=== PATIENT | female | born 1955 | race Caucasian/White ===

== ENCOUNTER → 2017-04-04 | Outpatient (CLI) | payer BC ==
[~2017-04-04] MED LIST: ALBU8.5H2 INH; ALPR.25T PO; ASP325T PO; ASPI-892 PO; AZIT-21 PO; BLACK COHASH; CALC-80 PO; CHOL10003 PO; CLAR-19 PO; DOXY100C2 PO; ERGO400C PO; FLUT1DIS26 IH; FLUT1DIS26 INH; FURO40TA4 PO; GLYB1.252 PO; HCT25T; HCT25T PO; HYDR480S10 PO; INSU100C7 SQ; INSU100I10 SC; INSU100I14 SC; INSU100I23 SQ; IPRA3AMP11 INH; KCL20TCR PO; LEVA1.25 NEB; LEVA1.252 IH; LEVO125T6; LEVO250T7 PO; LEVO500T69 PO; LEVO75TA57 PO; LOSA25TA5 PO; LOSA50TA6 PO; LOVA10TA PO; MTF500T; MULT1TAB63; NFMET1000 PO; OMG1KC PO; OSLT75CRX PO; PNT40TEC PO; POTA20TA15 PO; PRAV10TA PO; PRD20T PO; PRED10TA PO; SULF1TAB38; TRIA15CR TOP; TRIA1CAP PO; TRIA1CAP15 PO
--- NOTE | 2017-04-07 13:50 | Diagnostic Imaging Report ---
EXAMINATION: Bilateral screening mammogram 2D views with tomosynthesis. The current study was also evaluated with a Computer Aided Detection (CAD) system. INDICATION: Screening. PERSONAL HISTORY: No current complaints stated on the questionnaire. COMPARISON: 01/26/2016. FINDINGS: The breasts are composed of heterogeneously dense parenchyma which may decrease mammographic sensitivity. There is no mass, architectural distortion, or suspicious cluster of calcifications. Allowing for technique and positional differences, no suspicious change is seen. IMPRESSION: No significant change. ACR BI-RADS Category 2: Benign findings. Result letter will be mailed to the patient. Note: At least 10% of breast cancer is not imaged by mammography. Dictated by: Dictated on workstation # [id number]
== END ==
LOC: RAD 10:15
PROVIDERS: ATTEND Internal Medicine
DX: Z12.31 Encounter for screening mammogram for malignant neoplasm of breast (principal)
CPT/HCPCS: 77067

== ENCOUNTER 2017-05-26 14:45 | Observation (INO) | payer BC ==
[~2017-05-26] VITALS: Ht 170.2 cm; Wt 94.7 kg
[2017-05-26 15:25] VITALS: BP 171/90
--- OUTSIDE RECORDS SUMMARY | 2017-05-26 15:44 | XMS REPORT ---
Author Author THADDEUS ALEMAN Organization [employer] Address Unknown Phone Unavailable Care Team Providers Care Bartacker Name Role Phone THADDEUS ALEMAN Unavailable Allergies No Known Allergies Problems Problem Type Condition Code Onset Dates Condition Status Assessment Encounter for immunization Z23 Active Problem ZOSTAVAX DX V05.8 Active Medications No Known Medications Procedures Procedure Coding System Code Date SINGLE IMMUNIZATION ADMIN CPT-4 57364 Mar 23, 2015 FLUARIX QUAD (3 & UP)-GSK-2014 CPT-4 61605 Mar 23, 2015 Results No Known Results Immunizations Vaccine Administration Date FLUARIX QUAD (3 & UP)-GSK-2014Mar 23, 2015 Summary Purpose [employer] Submission
[2017-05-26] MEDS ORDERED: IBUPROFEN TABLET 200 MG TAB PO PRN (15:45)
[2017-05-26] MEDS ORDERED: ONDANSETRON 4 MG/2 ML (SDV) Z0FRAN IVP PRN (15:45)
[2017-05-26] MEDS ORDERED: PIPERACILLIN SODIUM/TAZOBACTAM 4.5 GM in NS (IVPB) 100 ML IV NR (15:45)
[2017-05-26] MEDS ORDERED: SENNA W/DOCUSATE (SENOKOT S) TABLET PO PRN (15:45)
[2017-05-26] MEDS ORDERED: ALPRAZolam 0.25 MG (XANAX) TAB PO PRN (15:45)
[2017-05-26] MEDS ORDERED: fentaNYL INJECTION 100 MCG/2 ML AMP IVP PRN (15:45)
[2017-05-26] MEDS ORDERED: HYDROcodone/APAP 5 MG/325 MG (LORTAB) TAB PO PRN (15:45)
[2017-05-26] MEDS ORDERED: ACETAMINOPHEN 500 MG TAB (TYLENOL) PO PRN (15:45)
--- OUTSIDE RECORDS SUMMARY | 2017-05-26 15:52 | XMS REPORT | Continuity of Care Document ---
Demographics Preferred Language Unknown Marital Status Unknown Restorationist Affiliation Unknown Race Unknown Ethnic Group Unknown Author Author [facility] Address Unknown Phone Unavailable Allergies Active Description Code Type Severity Reaction Onset Reported/Identified Relationship to Patient Clinical Status Yes codeine [id number] Drug Allergy Unknown N/A 05/22/2007 Yes sulfamethoxazole [id number] Drug Allergy Unknown N/A 07/19/2008 Yes trimethoprim [id number] Drug Allergy Unknown N/A 07/19/2008 Yes codeine [id number] Drug Allergy Unknown PT HAS TAKEN HY 07/13/2014 Medications Problems Date Dx Coded Attending Type Code Diagnosis Diagnosed By 06/29/2009 Ot 424.0 06/29/2009 Ot 786.09 12/31/2009 Ot 300.00 12/31/2009 Ot 466.0 12/31/2009 Ot 786.05 06/07/2011 Ot 244.9 06/07/2011 Ot 250.02 06/07/2011 Ot 272.1 06/07/2011 Ot 311 06/07/2011 Ot 403.90 06/07/2011 Ot 493.92 06/07/2011 Ot 585.9 06/07/2011 Ot 593.9 06/07/2011 Ot 924.3 06/07/2011 Ot E888.9 06/07/2011 Ot E932.0 06/07/2011 Ot V04.81 06/07/2011 Ot V58.67 07/24/2012 V05.8 ZOSTAVAX DX 07/13/2014 Ot 786.07 07/13/2014 Ot V76.12 07/13/2014 Ot 733.90 07/13/2014 Ot V76.12 07/13/2014 Ot V76.12 07/13/2014 CROSS DO, CATALINA Ot V76.12 07/13/2014 CROSS DO, CATALINA Ot V76.12 07/14/2014 CROSS DO, CATALINA Ot 244.9 07/14/2014 CROSS DO, CATALINA Ot 250.00 07/14/2014 CROSS DO, CATALINA Ot 272.4 07/14/2014 CROSS DO, CATALINA Ot 276.8 07/14/2014 CROSS DO, CATALINA Ot 401.9 07/14/2014 CROSS DO, CATALINA Ot 487.0 07/14/2014 CROSS DO, CATALINA Ot 493.92 07/14/2014 CROSS DO, CATALINA Ot V58.67 07/14/2014 Ot 786.07 07/14/2014 Ot V76.12 07/14/2014 Ot 733.90 07/14/2014 Ot V76.12 07/14/2014 Ot V76.12 07/14/2014 CROSS DO, CATALINA Ot V76.12 07/14/2014 CROSS DO, CATALINA Ot V76.12 07/14/2014 CROSS DO, CATALINA Ot 244.9 07/14/2014 CROSS DO, CATALINA Ot 250.00 07/14/2014 CROSS DO, CATALINA Ot 272.4 07/14/2014 CROSS DO, CATALINA Ot 276.8 07/14/2014 CROSS DO, CATALINA Ot 401.9 07/14/2014 CROSS DO, CATALINA Ot 487.0 07/14/2014 CROSS DO, CATALINA Ot 493.92 07/14/2014 CROSS DO, CATALINA Ot V58.67 07/15/2014 Ot 786.07 07/15/2014 Ot V76.12 07/15/2014 Ot 733.90 07/15/2014 Ot V76.12 07/15/2014 Ot V76.12 07/15/2014 CROSS DO, CATALINA Ot V76.12 07/15/2014 CROSS DO, CATALINA Ot V76.12 07/15/2014 CROSS DO, CATALINA Ot 244.9 07/15/2014 CROSS DO, CATALINA Ot 250.00 07/15/2014 CROSS DO, CATALINA Ot 272.4 07/15/2014 CROSS DO, CATALINA Ot 276.8 07/15/2014 CROSS DO, CATALINA Ot 401.9 07/15/2014 CROSS DO, CATALINA Ot 487.0 07/15/2014 CROSS DO, CATALINA Ot 493.92 07/15/2014 CROSS DO, CATALINA Ot V58.67 07/18/2014 CROSS DO, CATALINA Ot 244.9 07/18/2014 CROSS DO, CATALINA Ot 250.00 07/18/2014 CROSS DO, CATALINA Ot 250.02 07/18/2014 CROSS DO, CATALINA Ot 272.4 07/18/2014 CROSS DO, CATALINA Ot 276.8 07/18/2014 CROSS DO, CATALINA Ot 401.9 07/18/2014 CROSS DO, CATALINA Ot 480.9 07/18/2014 CROSS DO, CATALINA Ot 487.0 07/18/2014 CROSS DO, CATALINA Ot 493.92 07/18/2014 CROSS DO, CATALINA Ot 564.00 07/18/2014 CROSS DO, CATALINA Ot E849.7 07/18/2014 CROSS DO, CATALINA Ot E932.0 07/18/2014 CROSS DO, CATALINA Ot V58.67 01/12/2015 CROSS DO, CATALINA Ot V76.12 04/24/2015 Ot 733.90 04/24/2015 Ot V76.12 04/24/2015 Ot V76.12 04/24/2015 CROSS DO, CATALINA Ot V76.12 04/24/2015 CROSS DO, CATALINA Ot V76.12 04/24/2015 CROSS DO, CATALINA Ot V76.12 01/17/2016 CROSS DO, CATALINA Ot N64.89 OTHER SPECIFIED DISORDERS OF BREAST 01/17/2016 CROSS DO, CATALINA Ot Z12.31 ENCNTR SCREEN MAMMOGRAM FOR MALIGNANT NE 01/30/2016 CROSS DO, CATALINA Ot N64.89 OTHER SPECIFIED DISORDERS OF BREAST 02/15/2016 CROSS DO, CATALINA Ot N64.89 OTHER SPECIFIED DISORDERS OF BREAST 03/16/2016 Ot 784.0 06/16/2016 Ot 784.0 04/04/2017 CROSS DO, CATALINA Ot N64.89 OTHER SPECIFIED DISORDERS OF BREAST 04/04/2017 CROSS DO, CATALINA Ot Z12.31 ENCNTR SCREEN MAMMOGRAM FOR MALIGNANT NE 04/04/2017 CROSS DO, CATALINA Ot N64.89 OTHER SPECIFIED DISORDERS OF BREAST 04/04/2017 CROSS DO, CATALINA Ot N64.89 OTHER SPECIFIED DISORDERS OF BREAST 04/04/2017 CROSS DO, CATALINA Ot Z12.31 ENCNTR SCREEN MAMMOGRAM FOR MALIGNANT NE 04/04/2017 CROSS DO, CATALINA Ot N64.89 OTHER SPECIFIED DISORDERS OF BREAST 04/07/2017 CROSS DO, CATALINA Ot Z12.31 ENCNTR SCREEN MAMMOGRAM FOR MALIGNANT NE 04/10/2017 CROSS DO, CATALINA Ot Z12.31 ENCNTR SCREEN MAMMOGRAM FOR MALIGNANT NE 04/16/2017 CROSS DO, CATALINA Ot Z12.31 ENCNTR SCREEN MAMMOGRAM FOR MALIGNANT NE 05/16/2017 Ot 784.0 Procedures Results Encounters ACCT No. Visit Date/Time Discharge Status Pt. Type Provider Facility Loc./Unit Complaint [id number] 07/24/2012 11:07:00 07/24/2012 23: 59:59 CLS Outpatient [id number] 04/04/2017 10:15:00 2016 23:59:59 CLS Outpatient CROSS DO, CATALINA Via [facility] RAD Z12.31 SCREENING [id number] 02/03/2016 09:23:00 2015 23:59:59 CLS Outpatient VICTOR HUGO ZIMMERMAN Via [facility] QUICK BACK PAIN/FALL [id number] 01/26/2016 08:35:00 2015 23:59:59 CLS Outpatient CROSS DO, CATALINA Via [facility] RAD OTHER SPECIFIED DISORDER OF BREAST [id number] 01/19/2016 09:40:00 2015 23:59:59 CLS Outpatient KOLTON MIRELES APRN Via [facility] QUICK [id number] 01/03/2016 09:10:00 2015 23:59:59 CLS Outpatient CROSS DO, CATALINA Via [facility] RAD SCREENING [id number] 12/26/2014 14:41:00 2014 23:59:59 CLS Outpatient CROSS DO, CATALINA Via [facility] RAD [id number] 07/13/2014 11:15:00 2014 13:00:00 DIS Inpatient CROSS DO, CATALINA Via [facility] 4TH [id number] 12/21/2013 08:41:00 2013 23:59:59 CLS Outpatient CROSS DO, CATALINA Via [facility] RAD [id number] 10/09/2012 15:17:00 2012 23:59:59 CLS Outpatient CATALINA CROSS DO Via [facility] [id number] 05/26/2017 15:25:00 ACT Inpatient CATALINA CROSS DO Via [address] [id number] 07/13/2014 11:31:00 Document Registration [id number] 07/13/2014 11:31:00 Document Registration [id number] 07/13/2014 11:31:00 Document Registration [id number] 09/06/2011 15:18:00 Document Registration [id number] 06/03/2011 14:52:00 Document Registration [id number] 08/27/2010 08:34:00 Document Registration [id number] 12/31/2009 10:20:00 Document Registration [id number] 08/31/2009 08:53:00 Document Registration [id number] 06/28/2009 11:24:00 Document Registration [id number] 06/21/2009 10:38:00 Document Registration [id number] 05/22/2007 06:51:00 Document Registration
--- OUTSIDE RECORDS SUMMARY | 2017-05-26 15:52 | XMS REPORT ---
Author Author THADDEUS ALEMAN [facility] [employer] Address Unknown Phone Unavailable Care Team Providers Care Truck Despatcher Name Role Phone THADDEUS ALEMAN CP Unavailable Allergies No Known Allergies Problems Problem Type Condition Code Onset Dates Condition Status Assessment Encounter for immunization Z23 Active Problem ZOSTAVAX DX V05.8 Active Medications No Known Medications Procedures Procedure Coding System Code Date SINGLE IMMUNIZATION ADMIN CPT-4 61082 Mar 18, 2016 FLUARIX QUAD P-FREE 3 AND UP .50 2015 CPT-4 35130 Mar 18, 2016 Results No Known Results Immunizations Vaccine Administration Date FLUARIX QUAD P-FREE 3 AND UP .50 2015Mar 18, 2016 Summary Purpose [employer] Submission
[2017-05-26] MEDS ORDERED: CATHETER FLUSH 10 ML SYR IV PRN (16:15)
[2017-05-26 16:21] LABS: BASOPHILS % (AUTO) 0 % (0-10); EOSINOPHILS # (AUTO) 0.1 10^3/uL (0.0-0.3); EOSINOPHILS % (AUTO) 1 % (0-10); LYMPHOCYTES # (AUTO) 1.6 X 10^3 (1.0-4.0); LYMPHOCYTES % (AUTO) 18 % (12-44); MEAN CORPUSCULAR HEMOGLOBIN 28 PG (25-34); MEAN CORPUSCULAR HGB CONC 34 G/DL (32-36); MEAN CORPUSCULAR VOLUME 83 FL (80-99); MEAN PLATELET VOLUME 9.8 FL (7.4-10.4); MONOCYTES # (AUTO) 0.6 X 10^3 (0.0-1.0); MONOCYTES % (AUTO) 7 % (0-12); NEUTROPHILS # (AUTO) 6.7 X 10^3 (1.8-7.8); NEUTROPHILS % (AUTO) 74 % (42-75); PLATELET COUNT 204 10^3/uL (130-400); RED BLOOD COUNT 4.53 10^6/uL (4.35-5.85); RED CELL DISTRIBUTION WIDTH 12.5 % (10.0-14.5); WHITE BLOOD COUNT 9.1 10^3/uL (4.3-11.0)
[2017-05-26] MEDS ORDERED: LOSA100T28 PO (16:31)
[2017-05-26] MEDS ORDERED: LEVO75TA PO (16:31)
[2017-05-26 16:40] LABS: ALANINE AMINOTRANSFERASE 14 U/L (0-55); ALBUMIN 4.1 GM/DL (3.2-4.5); ANION GAP 7 MMOL/L (5-14); ASPARTATE AMINO TRANSFERASE 12 U/L (5-34); BILIRUBIN,TOTAL 0.7 MG/DL (0.1-1.0); BLOOD UREA NITROGEN 12 MG/DL (7-18); BUN/CREATININE RATIO 15; CALCIUM 9.3 MG/DL (8.5-10.1); CARBON DIOXIDE 28 MMOL/L (21-32); CHLORIDE 106 MMOL/L (98-107); GFR ESTIMATED > 60; GLUCOSE 110 MG/DL (70-105); POTASSIUM 3.3 MMOL/L (3.6-5.0); SODIUM 141 MMOL/L (135-145); TOTAL PROTEIN 6.9 GM/DL (6.4-8.2)
[2017-05-26] MEDS ORDERED: POTASSIUM CHLORIDE INJ 20 MEQ in NS IV 1000 ML 1,000 ML IV SCH (16:45)
[2017-05-26] MEDS: INSULIN ASPART SC SCH ×2 (17:00→21:30)
[2017-05-26] MEDS ORDERED: INSU100I14 SQ (17:01)
[2017-05-26] MEDS ORDERED: CALC-694 PO (17:01)
[2017-05-26] MEDS ORDERED: ASCO250T5 PO (17:01)
[2017-05-26] MEDS ORDERED: VITA10007 PO (17:01)
[2017-05-26] MEDS ORDERED: PRAV10TA PO (17:01)
[2017-05-26] MEDS ORDERED: ASPI-983 PO (17:01)
[2017-05-26] MEDS ORDERED: POTA10TA14 PO (17:01)
[2017-05-26] MEDS ORDERED: INSU100I29 SQ (17:01)
--- NOTE | 2017-05-26 17:01 | Diagnostic Imaging Report ---
PA and lateral views of the chest. INDICATION: Wheezing. FINDINGS: The lungs demonstrate slight prominence of the interstitial markings with no focal infiltrate. The heart size is at the upper limits of normal. No effusion or pneumothorax. The mediastinum and fatou appear unremarkable. IMPRESSION: Slight prominence of the interstitial markings with no focal infiltrate. Dictated by: Dictated on workstation # [id number]
[2017-05-26] MEDS ORDERED: ZOLPIDEM 5 MG (AMBIEN) TAB PO PRN (17:45)
[2017-05-26] MEDS: methylPREDNISolone 125 MG (Solu-MEDROL) VIAL IV SCH ×2 (18:13→23:52)
[2017-05-26] MEDS: NS W/KCL 20 MEQ/L 1,000 ML IV SCH (18:13)
[2017-05-26] MEDS: RT-BUDESONIDE NEBS 0.5 MG/2ML (PULMICORT) AMP INH SCH (18:31)
[2017-05-26] MEDS: RT-ALBUTEROL SULF 2.5 MG/3 ML PRE-MIX VIAL IH SCH ×2 (18:31→22:13)
[2017-05-26 19:24] VITALS: BP 144/69
[2017-05-26] MEDS ORDERED: NON-FORMULARY MEDICATION 1 EA EA (Insulin Detemir (Levemir Flextouch) 20 UNITS) SQ SCH (21:00)
[2017-05-26] MEDS ORDERED: inSUlin DETERMIR 1 UNIT/0.01 ML (LEVEMIR) CHARGE PER UNIT SQ SCH (21:00)
[2017-05-26] MEDS: CATHETER FLUSH 10 ML SYR IV SCH (21:36)
[2017-05-26] MEDS: PIPERACILLIN SODIUM/TAZOBACTAM 4.5 GM in NS (IVPB) 100 ML IV SCH (22:12)
[2017-05-27 00:54] VITALS: BP 139/81
[2017-05-27] MEDS: RT-ALBUTEROL SULF 2.5 MG/3 ML PRE-MIX VIAL IH SCH ×5 (01:52→21:23)
[2017-05-27] MEDS ORDERED: LEVOTHYROXINE 75 MCG (LEVOTHROID) TABLET PO SCH (04:30)
[2017-05-27 04:40] VITALS: BP 147/89
[2017-05-27] MEDS: CATHETER FLUSH 10 ML SYR IV SCH ×3 (05:38→20:57)
[2017-05-27 06:19] LABS: BASOPHILS % (AUTO) 0 % (0-10); EOSINOPHILS % (AUTO) 0 % (0-10); LYMPHOCYTES # (AUTO) 0.7 X 10^3 (1.0-4.0); LYMPHOCYTES % (AUTO) 6 % (12-44); MEAN CORPUSCULAR HEMOGLOBIN 28 PG (25-34); MEAN CORPUSCULAR HGB CONC 34 G/DL (32-36); MEAN CORPUSCULAR VOLUME 82 FL (80-99); MEAN PLATELET VOLUME 10.1 FL (7.4-10.4); MONOCYTES # (AUTO) 0.1 X 10^3 (0.0-1.0); MONOCYTES % (AUTO) 1 % (0-12); NEUTROPHILS # (AUTO) 10.3 X 10^3 (1.8-7.8); NEUTROPHILS % (AUTO) 94 % (42-75); PLATELET COUNT 234 10^3/uL (130-400); RED BLOOD COUNT 4.64 10^6/uL (4.35-5.85); RED CELL DISTRIBUTION WIDTH 12.6 % (10.0-14.5)
[2017-05-27 06:39] LABS: BAND NEUTROPHILS 0 %; BASOPHILS % (MANUAL) 0 %; EOSINOPHILS % (MANUAL) 0 %; LYMPHOCYTES % (MANUAL) 3 %; NEUTROPHILS % (MANUAL) 90 %; REACTIVE LYMPHOCYTES 4 %
[2017-05-27] MEDS ORDERED: KCL 10 MEQ TAB (MICRO K) PO SCH (07:00)
[2017-05-27] MEDS: INSULIN ASPART SC SCH ×4 (07:02→20:57)
[2017-05-27] MEDS: methylPREDNISolone 125 MG (Solu-MEDROL) VIAL IV SCH (07:02)
[2017-05-27] MEDS: PIPERACILLIN SODIUM/TAZOBACTAM 4.5 GM in NS (IVPB) 100 ML IV SCH ×3 (07:02→22:40)
[2017-05-27 07:07] LABS: ALBUMIN 4.1 GM/DL (3.2-4.5); BILIRUBIN,TOTAL 0.6 MG/DL (0.1-1.0); CALCIUM 9.7 MG/DL (8.5-10.1); CREATININE SERUM 1.09 MG/DL (0.60-1.30); POTASSIUM 3.9 MMOL/L (3.6-5.0)
[2017-05-27] MEDS: RT-BUDESONIDE NEBS 0.5 MG/2ML (PULMICORT) AMP INH SCH ×2 (07:19→21:24)
[2017-05-27 08:00] VITALS: BP 162/75
--- NOTE | 2017-05-27 08:53 | Diagnostic Imaging Report ---
INDICATION: Wheezing. PA and lateral views of the chest are obtained. Comparison is made study of 05/26/2017. FINDINGS: Heart size and pulmonary vascularity are within normal limits. There is a focal region of increased density projected over the medial upper right hemithorax. This is likely due to superimposition of the anterior aspect of first rib and right posterior ribs. This does appear more conspicuous than on the previous study. Otherwise, lungs are clear and well-expanded. There is no evidence of pneumothorax or significant pleural fluid. IMPRESSION: Questionable increasing focal density in the medial right upper chest. This is likely due to superimposition, although apical lordotic view would be of use for excluding possible developing lesion. Dictated by: Dictated on workstation # [id number]
[2017-05-27] MEDS: ASCORBIC ACID (VIT C) 500 MG TABLET PO SCH (08:55)
[2017-05-27] MEDS: NS W/KCL 20 MEQ/L 1,000 ML IV SCH (08:55)
[2017-05-27] MEDS: CALCIUM CARB + VIT D 600 MG (CALCARB + D) TAB PO SCH (08:55)
[2017-05-27] MEDS ORDERED: NON-FORMULARY MEDICATION 1 EA EA (Potassium Chloride (Klor-Con M10) 10 MEQ) PO SCH (09:00)
[2017-05-27] MEDS ORDERED: NON-FORMULARY MEDICATION 1 EA EA (Ascorbic Acid (Vitamin C) 500 MG) PO SCH (09:00)
[2017-05-27] MEDS ORDERED: LOSARTAN 100 MG (COZAAR) TABLET PO SCH (09:00)
--- NOTE | 2017-05-27 09:23 | History & Physical-Hospitalist ---
HPI History of Present Illness: HPI/Chief Complaint CC: Fever with cough and red, swollen eyes HPI: This is a 61yoWF clinic patient of mine for the past 12 years w/h/o DM, HTN , HLP and asthma who presented to my office yesterday afternoon as an urgent appt due to fever for 2 days and increasing cough and overall decline. Pt has a h/o influenza with pneumonia 3 yrs ago and she can become extremely ill and I assessed her yesterday to be rapidly declining and in need of further assessment and hospitalization to fully evaluate the source of her fever. I admitted her yesterday urgently and checked labs and CXR and influenza and it appears that she has bacterial bronchitis and AE asthma since flu was negative and CXR did not reveal infiltrate. Today she feels much better and her eyes are much improved. 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[employer]) Alcohol Use: Denies Use Recreational Drug Use: No Smoking Status: Never a Smoker Physical Abuse Screen: No Sexual Abuse: No Recent Foreign Travel: No Contact w/other who traveled: No Recent Hopitalizations: Yes Recent Infectious Disease Expo: No Immunizations Up To Date Pediatric: No Date of Pneumonia Vaccine: May 16, 2012 Date of Influenza Vaccine: Mar 17, 2017 Seasonal Allergies Seasonal Allergies: No Surgeries Yes (R ROTATOR CUFF 12/2004) Respiratory Yes Asthma Cardiovascular Yes High Cholesterol, Hypertension Neurological No Reproductive System Hx Reproductive Disorders: Yes Female Reproductive Disorders: Denies Genitourinary No Gastrointestinal No Musculoskeletal No Endocrine History of Endocrine Disorders: Yes Endocrine Disorders: Diabetes, Insulin dep HEENT History of HEENT Disorders: No Loss of Vision: Denies Hearing Impairment: Denies Cancer No Psychosocial History of Psychiatric Problem: No Integumentary History of Skin or Integumenta: No Blood Transfusions History of Blood Disorders: No Family Medical History Family Hx: Diabetes mellitus 19 MOTHER, , Age:60 FH: breast cancer 19 MOTHER, , Age:60 (mets to liver) Review of Systems Constitutional: see HPI, chills, diaphoresis, dizziness, fever, malaise, weakness EENTM: no symptoms reported Respiratory: cough, wheezing Cardiovascular: no symptoms reported Gastrointestinal: no symptoms reported Genitourinary: decreased output Musculoskeletal: back pain Skin: no symptoms reported Psychiatric/Neurological: No Symptoms Reported All Other Systems Reviewed Negative Unless Noted: Yes Physical Exam Physical Exam Vital Signs Vital Sign - Last 12Hours 05/26/17 05/26/17 15:25 16:51 Temp 97.5 Pulse 96 Resp 20 B/P (MAP) 171/90 (117) Pulse Ox 96 O2 Delivery Room Air FiO2 21 Capillary Refill : General Appearance: No Apparent Distress, WD/WN, Chronically ill, Other ( fatigued but much improved form yesterday) Eyes: Bilateral Eye Normal Inspection, Bilateral Eye PERRL HEENT: PERRL/EOMI, Normal ENT Inspection, Pharynx Normal Neck: Full Range of Motion, Normal Inspection, Non Tender, Supple, Carotid Bruit Respiratory: Chest Non Tender, No Accessory Muscle Use, No Respiratory Distress , Crackles, Decreased Breath Sounds, Wheezing Cardiovascular: Regular Rate, Rhythm, No Edema, No Gallop, No JVD, No Murmur, Normal Peripheral Pulses Gastrointestinal: Normal Bowel Sounds, No Organomegaly, No Pulsatile Mass, Non Tender, Soft Back: Normal Inspection, No CVA Tenderness, No Vertebral Tenderness Extremity: Normal Capillary Refill, Normal Inspection, Normal Range of Motion, Non Tender, No Calf Tenderness, No Pedal Edema Neurologic/Psychiatric: Alert, Oriented x3, No Motor/Sensory Deficits, Normal Mood/Affect Skin: Normal Color, Warm/Dry Lymphatic: No Adenopathy Results Results/Procedures Lab Laboratory Tests 05/26/17 16:00 05/27/17 05:38 Assessment/Plan Admission Diagnosis Assessment: Fever Bacterial bronchitis AE asthma DM OOC due to steroids usually tightly controlled with HGA1C 5.8 HTN 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 Assessment and Plan Plan: Decrease IV steroids and continue IV abx HLIVF Monitor labs Ambulate High sugar management Diagnosis/Problems Diagnosis/Problems (1) Acute bronchitis, bacterial Status: Acute Assessment & Plan: Zosyn abx empirically (2) Dehydration Status: Acute Assessment & Plan: s/p IVF will HLIVF today (3) Fever Status: Acute Qualifiers: Qualified Codes: R50.9 - Fever, unspecified (4) Asthma attack Status: Acute Qualifiers: Qualified Codes: J45.41 - Moderate persistent asthma with (acute) exacerbation Clinical Quality Measures DVT/VTE Risk/Contraindication: Risk Factor Score Per Nursin RFS Level Per Nursing on Admit: 3=High JUDI DELUCA DO May 27, 2017 09:23
[2017-05-27] MEDS ORDERED: PATIENT MAY USE OWN MEDS, ALL MC SCH (09:45)
[2017-05-27] MEDS: LOSARTAN 100 MG (COZAAR) TABLET PO SCH (10:08)
[2017-05-27] MEDS: ASPIRIN E.C. 81 MG (ECOTRIN) TAB PO SCH (10:10)
[2017-05-27 12:00] VITALS: BP 160/79
[2017-05-27 16:00] VITALS: BP 167/76
[2017-05-27 19:34] VITALS: BP 156/79
[2017-05-27] MEDS: methylPREDNISolone 40 MG/ML (Solu-MEDROL) VIAL IV SCH (20:56)
[2017-05-27] MEDS ORDERED: inSUlin DETERMIR 1 UNIT/0.01 ML (LEVEMIR) CHARGE PER UNIT SQ SCH (21:00)
[2017-05-28] VITALS: BP 154/79
[2017-05-28] MEDS: RT-ALBUTEROL SULF 2.5 MG/3 ML PRE-MIX VIAL IH SCH ×3 (02:38→10:36)
[2017-05-28 04:00] VITALS: BP 160/74
[2017-05-28] MEDS ORDERED: LEVOTHYROXINE 75 MCG (LEVOTHROID) TABLET PO SCH (04:30)
[2017-05-28 05:56] VITALS: BP 160/74
[2017-05-28 05:58] LABS: BASOPHILS % (AUTO) 0 % (0-10); EOSINOPHILS % (AUTO) 0 % (0-10); LYMPHOCYTES # (AUTO) 0.9 X 10^3 (1.0-4.0); LYMPHOCYTES % (AUTO) 7 % (12-44); MEAN CORPUSCULAR HEMOGLOBIN 28 PG (25-34); MEAN CORPUSCULAR HGB CONC 34 G/DL (32-36); MEAN CORPUSCULAR VOLUME 84 FL (80-99); MEAN PLATELET VOLUME 10.3 FL (7.4-10.4); MONOCYTES # (AUTO) 0.3 X 10^3 (0.0-1.0); MONOCYTES % (AUTO) 3 % (0-12); NEUTROPHILS # (AUTO) 11.4 X 10^3 (1.8-7.8); NEUTROPHILS % (AUTO) 90 % (42-75); PLATELET COUNT 240 10^3/uL (130-400); RED BLOOD COUNT 4.16 10^6/uL (4.35-5.85); RED CELL DISTRIBUTION WIDTH 12.7 % (10.0-14.5); WHITE BLOOD COUNT 12.6 10^3/uL (4.3-11.0)
[2017-05-28] MEDS: PIPERACILLIN SODIUM/TAZOBACTAM 4.5 GM in NS (IVPB) 100 ML IV SCH (06:16)
[2017-05-28] MEDS: LOSARTAN 100 MG (COZAAR) TABLET PO SCH (06:16)
[2017-05-28] MEDS: CATHETER FLUSH 10 ML SYR IV SCH (06:16)
[2017-05-28 06:20] LABS: ALBUMIN 3.7 GM/DL (3.2-4.5); BILIRUBIN,TOTAL 0.3 MG/DL (0.1-1.0); CALCIUM 9.8 MG/DL (8.5-10.1); CREATININE SERUM 1.04 MG/DL (0.60-1.30); TOTAL PROTEIN 6.3 GM/DL (6.4-8.2)
[2017-05-28] MEDS: INSULIN ASPART SC SCH (06:26)
[2017-05-28] MEDS ORDERED: KCL 10 MEQ TAB (MICRO K) PO SCH (07:00)
[2017-05-28] MEDS: RT-BUDESONIDE NEBS 0.5 MG/2ML (PULMICORT) AMP INH SCH (07:23)
[2017-05-28 08:00] VITALS: BP 141/67
[2017-05-28] MEDS: methylPREDNISolone 40 MG/ML (Solu-MEDROL) VIAL IV SCH (09:45)
[2017-05-28] MEDS: CALCIUM CARB + VIT D 600 MG (CALCARB + D) TAB PO SCH (10:24)
[2017-05-28] MEDS: ASCORBIC ACID (VIT C) 500 MG TABLET PO SCH (10:24)
[2017-05-28] MEDS: ASPIRIN E.C. 81 MG (ECOTRIN) TAB PO SCH (10:24)
[2017-05-28] MEDS ORDERED: FLUT1DIS26 IH (11:06)
[2017-05-28] MEDS ORDERED: PRED10TA22 PO (11:06)
[2017-05-28] MEDS ORDERED: ALBU2.5V4 IH (11:06)
[2017-05-28] MEDS ORDERED: CEFD300C3 PO (11:06)
--- NOTE | 2017-05-28 11:24 | Discharge Summary-Hospitalist ---
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 Plan: Decrease IV steroids and continue IV abx HLIVF Monitor labs Ambulate High sugar management (1) Acute bronchitis, bacterial Status: Acute Assessment & Plan: Zosyn abx empirically (2) Dehydration Status: Acute Assessment & Plan: s/p IVF will HLIVF today (3) Fever Status: Acute (4) Asthma attack Status: Acute Discharge Summary Discharge Physical Examination Allergies: Coded Allergies: codeine (Verified Allergy, Unknown, PT HAS TAKEN HYDROCODONE W/O ISSUE, ) sulfamethoxazole (Verified Allergy, Unknown, 07/19/08) trimethoprim (Verified Allergy, Unknown, 07/19/08) Vitals & I&Os Vital Signs Date Time Temp Pulse Resp B/P (MAP) Pulse Ox O2 Delivery O2 Flow Rate FiO2 05/28/17 10:36 95 Room Air 05/28/17 08:00 98.2 110 17 141/67 (91) 05/26/17 16:51 21 Hospital Course Notes from 05/28/17 Chart Review: WBC 12.6 from steroids Blood sugars 400 due to steroids All cx negative Patient Interview: Pt states she was moved rooms yesterday Pt was informed that her sugars are high due to steroids and that they will run high until these are completed Physical exam stable. Lung sound great Pt denies having BMs Pt confirms [facility] Pt states her Albuterol has , but she states she has used them. Pt denies having any Advair. Pt states she needs a doctors' note for work. Pt states she would like to go back half a day on Friday, but Ill have her go back Friday after seeing her Friday Pt states that no one is home, but she can be picked up later. Pt joked that she tried to commit suicide last night and states she was receiving breathing treatment at after 0400 when the RN noticed she was covered with blood. Pt states she had apparently pulled out her IV. 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 Judi Deluca. Labs (last 24 hrs) Laboratory Tests 05/27/17 15:44: Glucometer 434*H 05/27/17 20:48: Glucometer 487*H 05/28/17 05:23: White Blood Count 12.6H, Red Blood Count 4.16L, Hemoglobin 11.8, Hematocrit 35, Mean Corpuscular Volume 84, Mean Corpuscular Hemoglobin 28, Mean Corpuscular Hemoglobin Concent 34, Red Cell Distribution Width 12.7, Platelet Count 240, Mean Platelet Volume 10.3, Neutrophils (%) (Auto) 90H, Lymphocytes (%) (Auto) 7L , Monocytes (%) (Auto) 3, Eosinophils (%) (Auto) 0, Basophils (%) (Auto) 0, Neutrophils # (Auto) 11.4H, Lymphocytes # (Auto) 0.9L, Monocytes # (Auto) 0.3, Eosinophils # (Auto) 0.0, Basophils # (Auto) 0.0, Sodium Level 140, Potassium Level 4.0, Chloride Level 107, Carbon Dioxide Level 23, Anion Gap 10, Blood Urea Nitrogen 27H, Creatinine 1.04, Estimat Glomerular Filtration Rate 54, BUN/ Creatinine Ratio 26, Glucose Level 442*H, Calcium Level 9.8, Total Bilirubin 0.3 , Aspartate Amino Transf (AST/SGOT) 11, Alanine Aminotransferase (ALT/SGPT) 16, Alkaline Phosphatase 95, Total Protein 6.3L, Albumin 3.7 Microbiology 05/26/17 Blood Culture - Preliminary, Resulted No growth 05/26/17 Influenza Types A,B Antigen (BRITTANY) - Final, Complete Pending Labs Laboratory Tests 05/28/17 05:23: White Blood Count 12.6, Red Blood Count 4.16, Hemoglobin 11.8, Hematocrit 35, Mean Corpuscular Volume 84, Mean Corpuscular Hemoglobin 28, Mean Corpuscular Hemoglobin Concent 34, Red Cell Distribution Width 12.7, Platelet Count 240, Mean Platelet Volume 10.3, Neutrophils (%) (Auto) 90, Lymphocytes (%) (Auto) 7, Monocytes (%) (Auto) 3, Eosinophils (%) (Auto) 0, Basophils (%) (Auto) 0, Neutrophils # (Auto) 11.4, Lymphocytes # (Auto) 0.9, Monocytes # (Auto) 0.3, Eosinophils # (Auto) 0.0, Basophils # (Auto) 0.0, Sodium Level 140, Potassium Level 4.0, Chloride Level 107, Carbon Dioxide Level 23, Anion Gap 10, Blood Urea Nitrogen 27, Creatinine 1.04, Estimat Glomerular Filtration Rate 54, BUN/ Creatinine Ratio 26, Glucose Level 442, Calcium Level 9.8, Total Bilirubin 0.3, Aspartate Amino Transf (AST/SGOT) 11, Alanine Aminotransferase (ALT/SGPT) 16, Alkaline Phosphatase 95, Total Protein 6.3, Albumin 3.7 Discharge Home Medications: Active Scripts Active Cefdinir 300 Mg Capsule 300 Mg PO BID Prednisone 10 Mg Tab.ds.pk 20 Mg PO DAILY Advair 250-50 Diskus (Fluticasone/Salmeterol) 1 Each Blst.w.dev 1 Each IH BID Albuterol Sulfate 2.5 Mg/3 Ml Vial.neb 2.5 Mg IH RTQ4HR Reported Levemir Flextouch (Insulin Detemir) 100 Unit/1 Ml Insuln.pen 20 Units SQ HS Klor-Con M10 (Potassium Chloride) 10 Meq Tab.er.prt 10 Meq PO DAILY LAST FILLED 07/14/16 #180 Pravastatin Sodium 10 Mg Tablet 5 Mg PO MOWEFR TAKES 1/2 OF A (10 MG) TABLET Vitamin C (Ascorbic Acid) 250 Mg Tab.chew 500 Mg PO DAILY TAKES 2 (250 MG) GUMMIES Vitamin E 1,000 Unit Capsule 1,000 Unit PO DAILY Novolog Flexpen (Insulin Aspart) 300 Units/3 Ml Solution 10 Units SQ AC Aspirin EC (Aspirin) 81 Mg Tablet.dr 81 Mg PO DAILY Calcium 600 + Vit D Caplet (Calcium Carbonate/Vitamin D3) 1 Each Tablet 600 Mg PO DAILY Losartan Potassium 100 Mg Tablet 100 Mg PO DAILY Synthroid (Levothyroxine Sodium) 75 Mcg Tablet 75 Mcg PO 0430 Instructions to patient/family Please see electronic discharge instructions given to patient. Clinical Quality Measures DVT/VTE Risk/Contraindication: Risk Factor Score Per Nursin RFS Level Per Nursing on Admit: 3=High Problem Qualifiers (1) Fever: Fever type: unspecified Qualified Codes: R50.9 - Fever, unspecified (2) Asthma attack: Asthma severity: moderate Asthma persistence: persistent Qualified Codes: J45.41 - Moderate persistent asthma with (acute) exacerbation JUDI DELUCA DO May 28, 2017 11:24
[2017-05-28 13:15] VITALS: BP 141/67
== END 2017-05-28 11:06 | disposition home or self-care (01) ==
LOC: 4TH 15:25
PROVIDERS: ADMIT Internal Medicine; ATTEND Internal Medicine
DX: J20.8 Acute bronchitis due to other specified organisms (principal); J45.41 Moderate persistent asthma with (acute) exacerbation; E86.0 Dehydration; E11.65 Type 2 diabetes mellitus with hyperglycemia; T38.0X5A Adverse effect of glucocorticoids and synthetic analogues, initial encounter; I10 Essential (primary) hypertension; E78.5 Hyperlipidemia, unspecified; Z79.4 Long term (current) use of insulin; Z79.899 Other long term (current) drug therapy; Z88.2 Allergy status to sulfonamides
CPT/HCPCS: 36415; 71020; 80053; 82962; 83605; 85007; 85025; 85027; 87040; 87804; 94640; 94760; 99211; G0378

== ENCOUNTER 2018-01-13 16:58 | Observation (INO) | payer BC ==
[~2018-01-13] VITALS: Ht 170.2 cm; Wt 103.0 kg
[~2018-01-13 16:58] MED LIST changes: +ALBU2.5V4 IH; +ASCO250T5 PO; +ASPI-983 PO; +CALC-694 PO; +CEFD300C3 PO; +INSU100I14 SQ; +INSU100I29 SQ; +LEVO75TA PO; +LOSA100T28 PO; +POTA10TA14 PO; +PRED10TA22 PO; +VITA10007 PO
[2018-01-13] MEDS ORDERED: PIPERACILLIN SODIUM/TAZOBACTAM 4.5 GM in NS (IVPB) 100 ML IV ONE (17:03)
[2018-01-13] MEDS ORDERED: fentaNYL INJECTION 100 MCG/2 ML AMP IVP PRN (17:15)
[2018-01-13] MEDS ORDERED: PATIENT MAY USE OWN MEDS, ALL PO SCH (17:15)
[2018-01-13] MEDS ORDERED: ACETAMINOPHEN 500 MG TAB (TYLENOL) PO PRN (17:15)
[2018-01-13] MEDS ORDERED: ONDANSETRON 4 MG/2 ML (SDV) Z0FRAN IVP PRN (17:15)
[2018-01-13 17:50] VITALS: BP 172/89
[2018-01-13] MEDS ORDERED: methylPREDNISolone 40 MG/ML (Solu-MEDROL) VIAL IV SCH (18:00)
[2018-01-13] MEDS ORDERED: PIPERACILLIN/TAZO 4.5 GM/D5W 100 ML IV NR ×2 (18:00)
--- NOTE | 2018-01-13 18:07 | Diagnostic Imaging Report ---
INDICATION: Shortness of breath with wheezing for the last week. EXAMINATION: Two-view chest dated 01/13/2018. COMPARISON: 05/27/2017. FINDINGS: There are mildly coarsened interstitial changes which appear chronic. The heart and pulmonary vasculature are stable from previous. There is no pneumothorax. No effusions or infiltrates appreciated. IMPRESSION: 1. Chronic changes with no acute abnormality appreciated. Dictated by: Dictated on workstation # [id number]
[2018-01-13 18:16] LABS: BASOPHILS # (AUTO) 0.1 10^3/uL (0.0-0.1); BASOPHILS % (AUTO) 1 % (0-10); EOSINOPHILS # (AUTO) 0.4 10^3/uL (0.0-0.3); EOSINOPHILS % (AUTO) 4 % (0-10); HEMATOCRIT 41 % (35-52); HEMOGLOBIN 13.9 G/DL (11.5-16.0); LYMPHOCYTES # (AUTO) 2.4 X 10^3 (1.0-4.0); LYMPHOCYTES % (AUTO) 24 % (12-44); MEAN CORPUSCULAR HEMOGLOBIN 28 PG (25-34); MEAN CORPUSCULAR HGB CONC 34 G/DL (32-36); MEAN CORPUSCULAR VOLUME 83 FL (80-99); MEAN PLATELET VOLUME 9.8 FL (7.4-10.4); MONOCYTES # (AUTO) 0.5 X 10^3 (0.0-1.0); MONOCYTES % (AUTO) 5 % (0-12); NEUTROPHILS # (AUTO) 6.7 X 10^3 (1.8-7.8); NEUTROPHILS % (AUTO) 67 % (42-75); PLATELET COUNT 285 10^3/uL (130-400); RED BLOOD COUNT 4.93 10^6/uL (4.35-5.85); RED CELL DISTRIBUTION WIDTH 13.1 % (10.0-14.5)
[2018-01-13] MEDS ORDERED: NEBI5TAB8 PO (18:22)
[2018-01-13] MEDS: ENOXAPARIN 40 MG/0.4 ML (LOVENOX) SYR SC SCH (18:23)
[2018-01-13] MEDS: methylPREDNISolone 125 MG (Solu-MEDROL) VIAL IV SCH ×2 (18:23→23:49)
[2018-01-13 18:36] LABS: ALBUMIN 4.3 GM/DL (3.2-4.5); BILIRUBIN,TOTAL 0.3 MG/DL (0.1-1.0); CALCIUM 10.4 MG/DL (8.5-10.1); CREATININE SERUM 0.99 MG/DL (0.60-1.30)
[2018-01-13] MEDS ORDERED: RT-ALBUTEROL/IPRATROPIUM 3 ML (DUONEB) VIAL ONE (18:39)
[2018-01-13] MEDS ORDERED: hydrALAZINE (APRESOLINE) 25 MG TAB PO PRN (19:00)
[2018-01-13] MEDS ORDERED: NS IV 1000 ML 1,000 ML IV SCH ×2 (19:00→22:00)
[2018-01-13] MEDS: RT-BUDESONIDE NEBS 0.5 MG/2ML (PULMICORT) AMP INH SCH (19:38)
[2018-01-13 19:53] VITALS: BP 172/89
[2018-01-13 20:10] VITALS: BP 189/85
[2018-01-13] MEDS ORDERED: RT-LEVALBUTEROL (XOPENEX) 1.25 MG/3 ML NEB NON-FORMULARY INH PRN (20:15)
[2018-01-13] MEDS: HYDROCODONE/CHLOR 10MG/5 ML (TUSSIONEX SUSP) 5ML UDC PO SCH (20:42)
[2018-01-13] MEDS: BENZONATATE 100 MG (TESSALON) CAPSULE PO SCH (20:42)
[2018-01-13] MEDS: inSUlin ASPART (NovoLOG) 1 UNIT/0.01 ML (CHARGE PER UNIT) SC SCH (20:43)
[2018-01-13] MEDS ORDERED: inSUlin DETERMIR 1 UNIT/0.01 ML (LEVEMIR) CHARGE PER UNIT SQ SCH (21:00)
[2018-01-13] MEDS: RT-LEVALBUTEROL (XOPENEX) 1.25 MG/3 ML NEB NON-FORMULARY INH SCH (21:38)
[2018-01-13] MEDS: ALPRAZolam 0.25 MG (XANAX) TAB PO PRN (21:50)
[2018-01-13] MEDS ORDERED: RT-ALBUTEROL SULF 2.5 MG/3 ML PRE-MIX VIAL IH SCH (22:00)
[2018-01-13] MEDS: PIPERACILLIN/TAZO 4.5 GM/D5W 100 ML IV SCH ×2 (23:49)
[2018-01-14 00:20] VITALS: BP 163/77
[2018-01-14] MEDS: RT-LEVALBUTEROL (XOPENEX) 1.25 MG/3 ML NEB NON-FORMULARY INH SCH ×6 (02:06→22:31)
[2018-01-14 04:09] VITALS: BP 129/75
[2018-01-14] MEDS: methylPREDNISolone 125 MG (Solu-MEDROL) VIAL IV SCH ×4 (05:39→23:47)
[2018-01-14] MEDS: KCL 10 MEQ TAB (MICRO K) PO SCH (05:41)
[2018-01-14] MEDS: LEVOTHYROXINE 75 MCG (LEVOTHROID) TABLET PO SCH (05:41)
[2018-01-14] MEDS: inSUlin ASPART (NovoLOG) 1 UNIT/0.01 ML (CHARGE PER UNIT) SC SCH ×7 (05:44→20:34)
[2018-01-14 05:46] LABS: BASOPHILS % (AUTO) 0 % (0-10); EOSINOPHILS % (AUTO) 0 % (0-10); HEMATOCRIT 38 % (35-52); HEMOGLOBIN 13.5 G/DL (11.5-16.0); LYMPHOCYTES # (AUTO) 1.1 X 10^3 (1.0-4.0); LYMPHOCYTES % (AUTO) 9 % (12-44); MEAN CORPUSCULAR HEMOGLOBIN 29 PG (25-34); MEAN CORPUSCULAR HGB CONC 35 G/DL (32-36); MEAN CORPUSCULAR VOLUME 82 FL (80-99); MEAN PLATELET VOLUME 10.1 FL (7.4-10.4); MONOCYTES # (AUTO) 0.1 X 10^3 (0.0-1.0); MONOCYTES % (AUTO) 1 % (0-12); NEUTROPHILS # (AUTO) 10.5 X 10^3 (1.8-7.8); NEUTROPHILS % (AUTO) 89 % (42-75); PLATELET COUNT 252 10^3/uL (130-400); RED BLOOD COUNT 4.68 10^6/uL (4.35-5.85); RED CELL DISTRIBUTION WIDTH 12.6 % (10.0-14.5); WHITE BLOOD COUNT 11.8 10^3/uL (4.3-11.0)
[2018-01-14 06:07] LABS: ALBUMIN 4.2 GM/DL (3.2-4.5); BILIRUBIN,TOTAL 0.5 MG/DL (0.1-1.0); CALCIUM 9.2 MG/DL (8.5-10.1); CREATININE SERUM 0.99 MG/DL (0.60-1.30); POTASSIUM 4.3 MMOL/L (3.6-5.0); TOTAL PROTEIN 6.5 GM/DL (6.4-8.2)
[2018-01-14] MEDS ORDERED: inSUlin ASPART (NovoLOG) 1 UNIT/0.01 ML (CHARGE PER UNIT) SC SCH (07:00)
[2018-01-14] MEDS: RT-BUDESONIDE NEBS 0.5 MG/2ML (PULMICORT) AMP INH SCH ×2 (07:19→18:38)
[2018-01-14 08:00] VITALS: BP 172/79
[2018-01-14] MEDS: BENZONATATE 100 MG (TESSALON) CAPSULE PO SCH ×3 (08:21→20:32)
[2018-01-14] MEDS: PIPERACILLIN/TAZO 4.5 GM/D5W 100 ML IV SCH ×6 (08:21→23:57)
[2018-01-14] MEDS: ASPIRIN E.C. 81 MG (ECOTRIN) TAB PO SCH (08:21)
[2018-01-14] MEDS: HYDROCODONE/CHLOR 10MG/5 ML (TUSSIONEX SUSP) 5ML UDC PO SCH ×2 (08:21→20:33)
[2018-01-14] MEDS: LOSARTAN 100 MG (COZAAR) TABLET PO SCH (08:22)
[2018-01-14] MEDS: NEBIVOLOL 5 MG TAB (BYSTOLIC) PO SCH (08:22)
[2018-01-14] MEDS ORDERED: NON-FORMULARY MEDICATION 1 EA EA (Potassium Chloride (Klor-Con M10) 10 MEQ) PO SCH (09:00)
[2018-01-14] MEDS ORDERED: FLUT1DIS26 IH (09:02)
[2018-01-14] MEDS ORDERED: LEVA1.2516 NEB (09:02)
[2018-01-14] MEDS ORDERED: CEFD300C3 PO (09:04)
--- NOTE | 2018-01-14 09:12 | History & Physical-Hospitalist ---
History of Present Illness HPI/Chief Complaint CC: Wheezing HPI: This is a 62-year-old white female clinic patient of [facility] for the past 10 years with a past medical history of wheezing, diabetes mellitus insulin- dependent under excellent control, hypertension, hypothyroidism and hyperlipidemia who presented to my clinic for the third time in the last 5 days for wheezing. She had been seen in my clinic the prior noted that her lung exam was clear so I treated bronchitis with cefdinir and prednisone and she restarted Advair and Xopenex and was seen in my Friday afternoon clinic for checkup. She is found to have improved status less cough and was told to call me on Friday and report status. She was seen as an urgent appointment found to have wheezing on exam and failure of outpatient therapy and persistent severe cough. She was subsequently admitted for observation for IV steroids and close monitoring. She did have an elevated lactic acid which is not of sepsis and bacterial source since chest x-ray was negative and no evidence of any infectious source but likely due to dehydration and hypovolemia and severe cough. Considering she has 1-2 attacks per year she is willing to pursue other sources of respiratory insufficiency including obstructive sleep apnea since she has not had sleep study in the past. We will arrange that as an outpatient with Dr. Fraire. Source: patient Exam Limitations: no limitations Date Seen 01/14/18 Time Seen by Provider: 10:00 Attending Physician Judi Deluca DO PCP Judi Deluca DO Referring Physician Date of Admission Jan 13, 2018 at 17:46 Home Medications & Allergies Home Medications Reviewed patient Home Medication Reconciliation performed by pharmacy medication reconciliations systems technician and/or nursing. Patients Allergies have been reviewed. Allergies Allergies Coded Allergies codeine (Verified Allergy, Unknown, PT HAS TAKEN HYDROCODONE W/O ISSUE, ) sulfamethoxazole (Verified Allergy, Unknown, 07/19/08) trimethoprim (Verified Allergy, Unknown, 07/19/08) Past Vxflwpv-Ytxflb-Otptmt Hx Past Med/Social Hx: Reviewed Nursing Past Med/Soc Hx, Reviewed and Corrections made Patient Social History Marrital Status: Employed/Student: employed (teacher) Alcohol Use: Denies Use Recreational Drug Use: No Smoking Status: Never a Smoker Physical Abuse Screen: No Sexual Abuse: No Recent Foreign Travel: No Contact w/other who traveled: No Recent Hopitalizations: Yes Recent Infectious Disease Expo: No Immunizations Up To Date Pediatric: No Date of Pneumonia Vaccine: May 16, 2012 Date of Influenza Vaccine: Mar 17, 2017 Seasonal Allergies Seasonal Allergies: No Past Medical History Respiratory: Asthma Currently Using CPAP: No Currently Using BIPAP: No Cardiac: High Cholesterol, Hypertension Reproductive: Yes Sexually Transmitted Disease: No HIV/AIDS: No Female Reproductive Disorders: Denies Endocrine: Diabetes, Insulin dep Are Your Blood Sugars Over 250: No Loss of Vision: Denies Hearing Impairment: Denies Did You Recieve Any Treatments: No History of Blood Disorders: No Adverse Reaction to Blood Harris: No Family History Diabetes mellitus 19 MOTHER, , Age:60 FH: breast cancer 19 MOTHER, , Age:60 (mets to liver) Review of Systems Constitutional: see HPI, dizziness, weakness EENTM: no symptoms reported Respiratory: cough, short of breath, wheezing Cardiovascular: no symptoms reported Gastrointestinal: no symptoms reported Genitourinary: no symptoms reported Musculoskeletal: no symptoms reported Skin: no symptoms reported Psychiatric/Neurological: No Symptoms Reported All Other Systems Reviewed Negative Unless Noted: Yes Physical Exam Physical Exam Vital Signs Vital Signs - First Documented 01/13/18 17:50 Temp 97.6 Pulse 86 Resp 22 B/P (MAP) 172/89 (116) Pulse Ox 97 O2 Delivery Room Air Capillary Refill : Height, Weight, BMI Height: 5'7.00" Weight: 227lbs. 2.0oz. [id number]; 35.6 BMI Method:Stated General Appearance: No Apparent Distress, WD/WN, Chronically ill, Obese Eyes: Bilateral Eye Normal Inspection, Bilateral Eye PERRL HEENT: PERRL/EOMI, TMs Normal, Normal ENT Inspection, Pharynx Normal Neck: Full Range of Motion, Normal Inspection, Non Tender, Supple, Carotid Bruit Respiratory: Chest Non Tender, No Accessory Muscle Use, No Respiratory Distress , Decreased Breath Sounds, Wheezing Cardiovascular: Regular Rate, Rhythm, No Edema, No Gallop, No JVD, No Murmur, Normal Peripheral Pulses Gastrointestinal: Normal Bowel Sounds, No Organomegaly, No Pulsatile Mass, Non Tender, Soft Back: Normal Inspection, No CVA Tenderness, No Vertebral Tenderness Extremity: Normal Capillary Refill, Normal Inspection, Normal Range of Motion, Non Tender, No Calf Tenderness, No Pedal Edema Neurologic/Psychiatric: Alert, Oriented x3, No Motor/Sensory Deficits, Normal Mood/Affect Skin: Normal Color, Warm/Dry Lymphatic: No Adenopathy Results Results/Procedures Labs Laboratory Tests 01/13/18 18:10 01/14/18 05:36 Patient resulted labs reviewed. Assessment/Plan Admission Diagnosis Assessment: Acute bronchitis failed Ceftin ear Acute exacerbation of asthma failed oral prednisone requiring IV steroids Severe and refractory cough placed on Tessalon and Tussionex Diabetes mellitus insulin-dependent now adequate control due to IV steroids Hypothyroidism Hypertension Hyperlipidemia Presumed sleep apnea exacerbation COPD asthma Admission Status: Observation Assessment and Plan Plan: IV steroids Monitor blood sugar closely Home meds Hep-locked IV fluid Discontinue telemetry Ambulate Arrange sleep study with Dr. Fraire as an outpatient Diagnosis/Problems Diagnosis/Problems (1) Asthma attack Status: Acute Qualifiers: Asthma severity: moderate Asthma persistence: persistent Qualified Codes : J45.41 - Moderate persistent asthma with (acute) exacerbation (2) Elevated lactic acid level Status: Acute Assessment & Plan: No evidence of sepsis (3) Hypothyroidism Status: Chronic Qualifiers: Hypothyroidism type: acquired Qualified Codes: E03.9 - Hypothyroidism, unspecified (4) Hypertension Status: Chronic Qualifiers: Hypertension type: essential hypertension Qualified Codes: I10 - Essential (primary) hypertension (5) Hyperlipidemia Status: Chronic Qualifiers: Hyperlipidemia type: mixed hyperlipidemia Qualified Codes: E78.2 - Mixed hyperlipidemia (6) Sleep apnea Status: Chronic Assessment & Plan: Needs PIPPA evaluation (7) Acute bronchitis, bacterial Status: Acute Assessment & Plan: Zosyn (8) Dehydration Status: Resolved (9) Diabetes Status: Chronic Qualifiers: Diabetes mellitus type: type 2 Diabetes mellitus fci insulin use: with fci use Diabetes mellitus complication status: with unspecified complications Qualified Codes: E11.8 - Type 2 diabetes mellitus with unspecified complications; Z79.4 - tank terminal gauger (current) use of insulin (10) Obesity Status: Chronic Qualifiers: Obesity type: due to excess calories Obesity classification: adult class 2 (BMI 35 - 39.9) Serious obesity comorbidity presence: unspecified whether serious comorbidity present Body mass index: BMI 35.0-35.9 Qualified Codes: E66.09 - Other obesity due to excess calories; Z68.35 - Body mass index (BMI) 35.0-35.9, adult Clinical Quality Measures DVT/VTE Risk/Contraindication: Risk Factor Score Per Nursin RFS Level Per Nursing on Admit: 4+=Very High JUDI DELUCA DO Jan 14, 2018 09:12
[2018-01-14 12:00] VITALS: BP 161/75
[2018-01-14 16:08] VITALS: BP 142/67
[2018-01-14] MEDS: ENOXAPARIN 40 MG/0.4 ML (LOVENOX) SYR SC SCH (17:37)
[2018-01-14] MEDS: ALPRAZolam 0.25 MG (XANAX) TAB PO PRN (20:32)
[2018-01-14 23:55] VITALS: BP 138/63
[2018-01-15] MEDS: RT-LEVALBUTEROL (XOPENEX) 1.25 MG/3 ML NEB NON-FORMULARY INH SCH ×3 (02:58→10:49)
[2018-01-15] MEDS: LEVOTHYROXINE 75 MCG (LEVOTHROID) TABLET PO SCH (06:18)
[2018-01-15] MEDS: KCL 10 MEQ TAB (MICRO K) PO SCH (06:19)
[2018-01-15] MEDS: methylPREDNISolone 125 MG (Solu-MEDROL) VIAL IV SCH ×2 (06:20→12:25)
[2018-01-15] MEDS: inSUlin ASPART (NovoLOG) 1 UNIT/0.01 ML (CHARGE PER UNIT) SC SCH ×4 (06:23→11:00)
[2018-01-15] MEDS: RT-BUDESONIDE NEBS 0.5 MG/2ML (PULMICORT) AMP INH SCH (06:51)
[2018-01-15 07:26] VITALS: BP 175/83
[2018-01-15] MEDS: PIPERACILLIN/TAZO 4.5 GM/D5W 100 ML IV SCH ×2 (08:51)
[2018-01-15] MEDS: NEBIVOLOL 5 MG TAB (BYSTOLIC) PO SCH (08:53)
[2018-01-15] MEDS: LOSARTAN 100 MG (COZAAR) TABLET PO SCH (08:54)
[2018-01-15] MEDS: ASPIRIN E.C. 81 MG (ECOTRIN) TAB PO SCH (08:54)
[2018-01-15] MEDS: BENZONATATE 100 MG (TESSALON) CAPSULE PO SCH ×2 (09:01→12:25)
[2018-01-15] MEDS: HYDROCODONE/CHLOR 10MG/5 ML (TUSSIONEX SUSP) 5ML UDC PO SCH (09:01)
[2018-01-15] MEDS ORDERED: HYDR473S34 PO (09:09)
[2018-01-15] MEDS ORDERED: BENZ-36 PO (09:09)
[2018-01-15] MEDS ORDERED: PRED10TA22 PO (09:09)
--- NOTE | 2018-01-15 09:11 | Discharge Summary-Hospitalist ---
Diagnosis/Chief Complaint Date of Admission Jan 13, 2018 at 17:46 Date of Discharge Discharge Date: Jan 15, 2018 Admission Diagnosis Assessment: Acute bronchitis failed Ceftin ear Acute exacerbation of asthma failed oral prednisone requiring IV steroids Severe and refractory cough placed on Tessalon and Tussionex Diabetes mellitus insulin-dependent now adequate control due to IV steroids Hypothyroidism Hypertension Hyperlipidemia Presumed sleep apnea exacerbation COPD asthma Discharge Diagnosis (1) Asthma attack Status: Resolved (2) Elevated lactic acid level Status: Acute Assessment & Plan: No evidence of sepsis on admit and now at DC the level was 6 so inconsistent with any sepsis indicators. (3) Hypothyroidism Status: Chronic (4) Hypertension Status: Chronic (5) Hyperlipidemia Status: Chronic (6) Sleep apnea Status: Chronic Assessment & Plan: Needs PIPPA evaluation (7) Acute bronchitis, bacterial Status: Acute Assessment & Plan: Zosyn (8) Dehydration Status: Resolved (9) Diabetes Status: Chronic (10) Obesity Status: Chronic Discharge Summary Discharge Physical Exam Allergies: Coded Allergies: codeine (Verified Allergy, Unknown, PT HAS TAKEN HYDROCODONE W/O ISSUE, ) sulfamethoxazole (Verified Allergy, Unknown, 07/19/08) trimethoprim (Verified Allergy, Unknown, 07/19/08) Vitals & I&Os Vital Signs Date Time Temp Pulse Resp B/P (MAP) Pulse Ox O2 Delivery O2 Flow Rate FiO2 01/15/18 07:26 98.0 95 20 175/83 (113) 94 Room Air General Appearance: Alert, Oriented X3, Cooperative Respiratory: Clear to Auscultation, Normal Air Movement Neuro: Normal Gait, Normal Speech, Strength at 5/5 X4 Ext Psych/Mental Status: Mental Status NL, Mood NL Hospital Course Hospital course: Patient was admitted directly after failure of oral antibiotics and oral steroids as an outpatient. Patient was found to have elevated lactic acid but no evidence of bacterial source so that was disproved. Patient was placed on empiric antibiotic of Zosyn in addition to IV steroids and wheezing cleared quickly along with antitussives of Tessalon Perles and Tussionex. Blood sugars were more elevated due to IV steroids and she will pursue sleep study with Dr. Fraire in the very near future due to my suspicion of sleep apnea providing a major factor in her recurrent exacerbations of asthma. She will also maintain Advair twice a day and then long-term will have one puff every other day as proposed and she is in agreement with that plan. Labs (last 24 hrs) Laboratory Tests 01/14/18 11:07: Glucometer 248H 01/14/18 15:29: Glucometer 268H 01/14/18 20:31: Glucometer 292H 01/15/18 05:29: Glucometer 325H 01/15/18 09:00: White Blood Count 18.6H, Red Blood Count 4.56, Hemoglobin 12.8, Hematocrit 38, Mean Corpuscular Volume 84, Mean Corpuscular Hemoglobin 28, Mean Corpuscular Hemoglobin Concent 34, Red Cell Distribution Width 13.0, Platelet Count 303, Mean Platelet Volume 9.3, Sodium Level 139, Potassium Level 3.7, Chloride Level 104, Carbon Dioxide Level 22, Anion Gap 13, Blood Urea Nitrogen 19H, Creatinine 1.39H, Estimat Glomerular Filtration Rate 39, BUN/Creatinine Ratio 14, Glucose Level 378H, Lactic Acid Level 6.86*H, Calcium Level 9.7, Total Bilirubin 0.4, Aspartate Amino Transf (AST/SGOT) 10, Alanine Aminotransferase (ALT/SGPT) 19, Alkaline Phosphatase 102, Total Protein 6.5, Albumin 4.2 Microbiology 01/13/18 Blood Culture - Preliminary, Resulted No growth Patient resulted labs reviewed. Pending Labs Laboratory Tests 01/15/18 05:29: Glucometer 325 01/15/18 09:00: White Blood Count 18.6, Red Blood Count 4.56, Hemoglobin 12.8, Hematocrit 38, Mean Corpuscular Volume 84, Mean Corpuscular Hemoglobin 28, Mean Corpuscular Hemoglobin Concent 34, Red Cell Distribution Width 13.0, Platelet Count 303, Mean Platelet Volume 9.3, Sodium Level 139, Potassium Level 3.7, Chloride Level 104, Carbon Dioxide Level 22, Anion Gap 13, Blood Urea Nitrogen 19, Creatinine 1.39, Estimat Glomerular Filtration Rate 39, BUN/Creatinine Ratio 14, Glucose Level 378, Lactic Acid Level 6.86, Calcium Level 9.7, Total Bilirubin 0.4, Aspartate Amino Transf (AST/SGOT) 10, Alanine Aminotransferase (ALT/SGPT) 19, Alkaline Phosphatase 102, Total Protein 6.5, Albumin 4.2 Discussion & Recommendations Discharge Planning: <30 minutes discharge planning Discharge Home Medications: Active Scripts Active Prednisone 10 Mg Tab.ds.pk 10 Mg PO DAILY Take 6 tabs(60mg)daily,decrease by 1 tab(10MG)daily. Hydrocodone-Chlorphen ER Susp (Hydrocodone/Chlorphen P-Stirex) 473 Ml Norma.er.12h 5 Ml PO Q12HR Benzonatate 100 Mg Capsule 200 Mg PO TID Reported Cefdinir 300 Mg Capsule 300 Mg PO BID 7 Days 7 DAY SUPPLY FILLED 01-08-18 Advair 250-50 Diskus (Fluticasone/Salmeterol) 1 Each Blst.w.dev 1 Puff IH BID PRN Levalbuterol HCl 1.25 Mg/3 Ml Vial.neb 1.25 Mg NEB Q6H PRN Bystolic (Nebivolol HCl) 5 Mg Tablet 5 Mg PO DAILY 30 Days Levemir Flextouch (Insulin Detemir) 100 Unit/1 Ml Insuln.pen 20-25 Units SQ HS Klor-Con M10 (Potassium Chloride) 10 Meq Tab.er.prt 10 Meq PO DAILY Pravastatin Sodium 10 Mg Tablet 5 Mg PO MOWEFR TAKES 1/2 OF A (10 MG) TABLET Novolog Flexpen (Insulin Aspart) 300 Units/3 Ml Solution 10-15 Units SQ AC Aspirin EC (Aspirin) 81 Mg Tablet.dr 81 Mg PO DAILY Losartan Potassium 100 Mg Tablet 100 Mg PO DAILY Synthroid (Levothyroxine Sodium) 75 Mcg Tablet 75 Mcg PO 0430 Instructions to patient/family Please see electronic discharge instructions given to patient. Clinical Quality Measures DVT/VTE Risk/Contraindication: Risk Factor Score Per Nursin RFS Level Per Nursing on Admit: 4+=Very High Problem Qualifiers (1) Asthma attack: Asthma severity: moderate Asthma persistence: persistent Qualified Codes: J45.41 - Moderate persistent asthma with (acute) exacerbation (2) Hypothyroidism: Hypothyroidism type: acquired Qualified Codes: E03.9 - Hypothyroidism, unspecified (3) Hypertension: Hypertension type: essential hypertension Qualified Codes: I10 - Essential ( primary) hypertension (4) Hyperlipidemia: Hyperlipidemia type: mixed hyperlipidemia Qualified Codes: E78.2 - Mixed hyperlipidemia (5) Diabetes: Diabetes mellitus type: type 2 Diabetes mellitus care home insulin use: with safety engineer use Diabetes mellitus complication status: with unspecified complications Qualified Codes: E11.8 - Type 2 diabetes mellitus with unspecified complications; Z79.4 - skilled nursing (current) use of insulin (6) Obesity: Obesity type: due to excess calories Obesity classification: adult class 2 ( BMI 35 - 39.9) Serious obesity comorbidity presence: unspecified whether serious comorbidity present Body mass index: BMI 35.0-35.9 Qualified Codes: E66.09 - Other obesity due to excess calories; Z68.35 - Body mass index (BMI) 35.0-35.9, adult CATALINA CROSS DO Jan 15, 2018 09:11
[2018-01-15 09:12] LABS: HEMOGLOBIN 12.8 G/DL (11.5-16.0); MEAN PLATELET VOLUME 9.3 FL (7.4-10.4); RED BLOOD COUNT 4.56 10^6/uL (4.35-5.85); WHITE BLOOD COUNT 18.6 10^3/uL (4.3-11.0)
[2018-01-15 09:30] LABS: ALBUMIN 4.2 GM/DL (3.2-4.5); BILIRUBIN,TOTAL 0.4 MG/DL (0.1-1.0); CALCIUM 9.7 MG/DL (8.5-10.1); CREATININE SERUM 1.39 MG/DL (0.60-1.30); POTASSIUM 3.7 MMOL/L (3.6-5.0); TOTAL PROTEIN 6.5 GM/DL (6.4-8.2)
[2018-01-23] MEDS ORDERED: HYDR115S2 PO (15:17)
[2018-01-23] MEDS ORDERED: ASPI-999 PO (15:17)
[2018-01-23] MEDS ORDERED: BENZ-36 PO (15:17)
[2018-01-23] MEDS ORDERED: NEBI5TAB8 PO (15:21)
[2018-01-29] MEDS ORDERED: NEBU1KIT3 MC (11:06)
[2018-01-29] MEDS ORDERED: CEFD300C3 PO (11:06)
[2018-01-29] MEDS ORDERED: FLUC100T6 PO (11:06)
[2018-01-29] MEDS ORDERED: LORA10TA7 PO (11:06)
[2018-01-29] MEDS ORDERED: HYDR25TA4 PO (11:06)
[2018-01-29] MEDS ORDERED: BLOO1EAC87 MC (11:06)
[2018-01-29] MEDS ORDERED: ACID1TAB PO (11:06)
[2018-01-29] MEDS ORDERED: MONT10TA24 PO (11:06)
[2018-01-29] MEDS ORDERED: OMEP40CA36 PO (11:06)
[2018-01-29] MEDS ORDERED: PRED10TA22 PO (11:06)
[2018-01-29] MEDS ORDERED: FLUT16SP22 NS (11:06)
== END 2018-01-15 09:09 | disposition home or self-care (01) ==
LOC: 4TH 17:45 → UNDOADMOB 17:46 → 4TH 17:46 → UNDODISOB 01-15 13:45
PROVIDERS: ADMIT Internal Medicine; ATTEND Internal Medicine
DX: J45.41 Moderate persistent asthma with (acute) exacerbation (principal); J20.9 Acute bronchitis, unspecified; E03.9 Hypothyroidism, unspecified; I10 Essential (primary) hypertension; E11.9 Type 2 diabetes mellitus without complications; E78.2 Mixed hyperlipidemia; G47.30 Sleep apnea, unspecified; E86.0 Dehydration; E66.9 Obesity, unspecified; Z79.4 Long term (current) use of insulin; Z68.35 Body mass index [BMI] 35.0-35.9, adult
CPT/HCPCS: 36415; 71046; 80053; 82962; 83605; 85025; 85027; 87040; 94640; 94760; 99211; G0378

== ENCOUNTER → 2018-01-19 | Outpatient (CLI) | payer BC ==
[~2018-01-19] MED LIST changes: +ACID1TAB PO; +ASPI-999 PO; +BENZ-36 PO; +BLOO1EAC87 MC; +FLUC100T6 PO; +FLUT16SP22 NS; +HYDR115S2 PO; +HYDR25TA4 PO; +HYDR473S34 PO; +LEVA1.2516 NEB; +LORA10TA7 PO; +MONT10TA24 PO; +NEBI5TAB8 PO; +NEBU1KIT3 MC; +OMEP40CA36 PO
[2018-01-19 08:54] LABS: BASOPHILS % (AUTO) 0 % (0-10); EOSINOPHILS % (AUTO) 0 % (0-10); HEMATOCRIT 38 % (35-52); HEMOGLOBIN 12.6 G/DL (11.5-16.0); LYMPHOCYTES # (AUTO) 1.2 X 10^3 (1.0-4.0); LYMPHOCYTES % (AUTO) 9 % (12-44); MEAN CORPUSCULAR HEMOGLOBIN 28 PG (25-34); MEAN CORPUSCULAR HGB CONC 33 G/DL (32-36); MEAN CORPUSCULAR VOLUME 84 FL (80-99); MEAN PLATELET VOLUME 9.5 FL (7.4-10.4); MONOCYTES # (AUTO) 0.5 X 10^3 (0.0-1.0); MONOCYTES % (AUTO) 4 % (0-12); NEUTROPHILS # (AUTO) 12.7 X 10^3 (1.8-7.8); NEUTROPHILS % (AUTO) 88 % (42-75); PLATELET COUNT 206 10^3/uL (130-400); RED BLOOD COUNT 4.54 10^6/uL (4.35-5.85); WHITE BLOOD COUNT 14.5 10^3/uL (4.3-11.0)
[2018-01-19 09:12] LABS: ALBUMIN 3.7 GM/DL (3.2-4.5); BILIRUBIN,TOTAL 0.8 MG/DL (0.1-1.0); CALCIUM 8.9 MG/DL (8.5-10.1); CREATININE SERUM 0.98 MG/DL (0.60-1.30); POTASSIUM 3.8 MMOL/L (3.6-5.0); TOTAL PROTEIN 5.6 GM/DL (6.4-8.2)
[2018-01-19 09:29] LABS: BAND NEUTROPHILS 0 %; BASOPHILS % (MANUAL) 0 %; EOSINOPHILS % (MANUAL) 0 %; LYMPHOCYTES % (MANUAL) 11 %; MONOCYTES % (MANUAL) 3 %; NEUTROPHILS % (MANUAL) 86 %; RBC MORPH NORMAL
== END ==
LOC: LAB 08:30
PROVIDERS: ATTEND Internal Medicine
DX: E78.00 Pure hypercholesterolemia, unspecified (principal); E78.1 Pure hyperglyceridemia; E11.9 Type 2 diabetes mellitus without complications; R53.83 Other fatigue
CPT/HCPCS: 36415; 80053; 83605; 85007; 85027

== ENCOUNTER → 2018-01-21 | Outpatient (CLI) | payer BC ==
[2018-01-21 11:05] LABS: BASOPHILS % (AUTO) 0 % (0-10); EOSINOPHILS % (AUTO) 0 % (0-10); HEMATOCRIT 38 % (35-52); HEMOGLOBIN 13.3 G/DL (11.5-16.0); LYMPHOCYTES # (AUTO) 0.8 X 10^3 (1.0-4.0); LYMPHOCYTES % (AUTO) 5 % (12-44); MEAN CORPUSCULAR HEMOGLOBIN 29 PG (25-34); MEAN CORPUSCULAR HGB CONC 35 G/DL (32-36); MEAN CORPUSCULAR VOLUME 83 FL (80-99); MEAN PLATELET VOLUME 9.8 FL (7.4-10.4); MONOCYTES # (AUTO) 0.8 X 10^3 (0.0-1.0); MONOCYTES % (AUTO) 5 % (0-12); NEUTROPHILS # (AUTO) 15.5 X 10^3 (1.8-7.8); NEUTROPHILS % (AUTO) 91 % (42-75); PLATELET COUNT 186 10^3/uL (130-400); RED BLOOD COUNT 4.59 10^6/uL (4.35-5.85); WHITE BLOOD COUNT 17.1 10^3/uL (4.3-11.0)
[2018-01-21 11:32] LABS: ALANINE AMINOTRANSFERASE 36 U/L (0-55); ALBUMIN 3.7 GM/DL (3.2-4.5); ALKALINE PHOSPHATASE 77 U/L (40-136); BILIRUBIN,TOTAL 1.1 MG/DL (0.1-1.0); BUN/CREATININE RATIO 20; CARBON DIOXIDE 26 MMOL/L (21-32); CHLORIDE 97 MMOL/L (98-107); CREATININE SERUM 0.84 MG/DL (0.60-1.30); GFR ESTIMATED > 60; GLUCOSE 165 MG/DL (70-105); SODIUM 130 MMOL/L (135-145)
[2018-01-21 11:34] LABS: BILIRUBIN,URINE NEGATIVE (NEGATIVE); CLARITY,URINE CLEAR; COLOR,URINE YELLOW; GLUCOSE, URINE (UA) NEGATIVE (NEGATIVE); KETONES,URINE NEGATIVE (NEGATIVE); LEUKOCYTE ESTERASE ,URINE 1+ (NEGATIVE); NITRITE,URINE NEGATIVE (NEGATIVE); PH,URINE 6 (5-9); PROTEIN,URINE 3+ (NEGATIVE); UROBILINOGEN,URINE 1 MG/DL (NORMAL)
[2018-01-21 11:35] LABS: BACTERIA,URINE NEGATIVE /HPF; RBC,URINE 0-2 /HPF; SQUAMOUS EPITHELIAL CELL,UR 0-2 /HPF; WBC,URINE 0-2 /HPF
[2018-01-21 11:43] LABS: BAND NEUTROPHILS 6 %; BASOPHILS % (MANUAL) 0 %; EOSINOPHILS % (MANUAL) 0 %; LYMPHOCYTES % (MANUAL) 3 %; MONOCYTES % (MANUAL) 6 %; NEUTROPHILS % (MANUAL) 84 %; REACTIVE LYMPHOCYTES 1 %
[2018-01-21 11:44] LABS: ELLIPT/OVALOCYTES SLIGHT; MICROCYTOSIS SLIGHT; POIKILOCYTOSIS SLIGHT; STOMATOCYTES SLIGHT
--- NOTE | 2018-01-21 11:56 | Diagnostic Imaging Report ---
INDICATION: Shortness of air. COMPARISON: 01/13/2018 FINDINGS: Frontal and lateral radiographic views of the chest were obtained and demonstrate interval development of alveolar opacities within the bilateral suprahilar regions. There are also areas of patchy alveolar opacity within the bilateral lower lung acosta. These are new when compared to 01/13/2018. There is no large effusion or pneumothorax. Cardiac silhouette is within normal limits. Pulmonary vasculature does appear slightly prominent. Bony structures show no gross acute abnormalities. IMPRESSION: 1. Interval development of patchy alveolar opacities bilaterally concerning for pneumonia. Followup to resolution is recommended. 2. Probable mild pulmonary vascular congestion. Dictated by: Dictated on workstation # [id number]
== END ==
LOC: RAD 10:41
PROVIDERS: ATTEND Internal Medicine
DX: R91.8 Other nonspecific abnormal finding of lung field (principal)
CPT/HCPCS: 36415; 71046; 80053; 81000; 83605; 83880; 84484; 85007; 85027

== ENCOUNTER → 2018-03-02 | Outpatient (CLI) | payer BC ==
[~2018-03-02] MED LIST changes: -LOSA100T28 PO; +LOSA100T8 PO; +RT-ALBUTEROL SULF 2.5 MG/3 ML PRE-MIX VIAL INH ONE
--- NOTE | 2018-03-02 10:25 | Diagnostic Imaging Report ---
PROCEDURE: CT chest without contrast. TECHNIQUE: Multiple contiguous axial images were obtained through the chest without the use of intravenous contrast. INDICATION: Pneumonia with continued productive cough. COMPARISON: Comparison is made with a recent CT of the chest from 01/23/2018. FINDINGS: No axillary lymphadenopathy is identified. There are small lymph nodes in the mediastinum. No pathologically enlarged mediastinal nodes are seen. Narcisa are unremarkable. No pericardial or pleural fluid is identified. Parenchymal evaluation demonstrates significant improved appearance to the chest. Previously noted airspace infiltrates throughout both lungs have resolved. Central airways are patent. No mass is identified. Upper abdomen does show a stone within the gallbladder. IMPRESSION: 1. Resolution of previously seen bilateral pneumonia when compared with CT study from 01/23/2018. 2. Cholelithiasis. Dictated by: Dictated on workstation # [id number]
== END ==
LOC: RAD 09:02
PROVIDERS: ATTEND Nurse Practitioner Family
DX: J18.9 Pneumonia, unspecified organism (principal); J45.909 Unspecified asthma, uncomplicated; K80.20 Calculus of gallbladder without cholecystitis without obstruction
CPT/HCPCS: 71250; 94060; 94640; 94726; 94729

== ENCOUNTER → 2018-04-16 | Outpatient (CLI) | payer BC ==
[~2018-04-16] MED LIST changes: -RT-ALBUTEROL SULF 2.5 MG/3 ML PRE-MIX VIAL INH ONE
--- NOTE | 2018-04-17 08:33 | Diagnostic Imaging Report ---
Indication: Routine screening. Comparison is made with prior mammogram from 04/04/2017 and 01/03/2016. 2-D and 3-D bilateral screening mammography was performed with CAD. Both breasts are heterogeneously dense, limiting the sensitivity of mammography. The parenchymal pattern is stable. No mass or malignant-appearing microcalcifications are seen. The axillae are unremarkable. Impression: BI-RADS category 1 No mammographic features suspicious for malignancy are identified. ACR BI-RADS Category 1: Negative. Result letter will be mailed to the patient. Note: At least 10% of breast cancer is not imaged by mammography. Dictated by: Dictated on workstation # [id number]
== END ==
LOC: RAD 15:03
PROVIDERS: ATTEND Internal Medicine
DX: Z12.31 Encounter for screening mammogram for malignant neoplasm of breast (principal)
CPT/HCPCS: 77067

== ENCOUNTER 2018-06-10 12:31 | Inpatient (IN) | payer BC ==
[~2018-06-10] VITALS: Ht 170.2 cm; Wt 108.4 kg
[2018-06-10] MEDS ORDERED: IBUPROFEN TABLET 200 MG TAB PO PRN (12:45)
[2018-06-10] MEDS ORDERED: ONDANSETRON 4 MG/2 ML (SDV) Z0FRAN IVP PRN (12:45)
[2018-06-10] MEDS ORDERED: ACETAMINOPHEN 500 MG TAB (TYLENOL) PO PRN (12:45)
[2018-06-10] MEDS ORDERED: ALPRAZolam 0.25 MG (XANAX) TAB PO PRN (12:45)
[2018-06-10] MEDS ORDERED: HYDROcodone/APAP 5 MG/325 MG (LORTAB) TAB PO PRN (12:45)
[2018-06-10] MEDS ORDERED: DOCUSATE SODIUM 100 MG (COLACE) CAP PO PRN (12:45)
[2018-06-10] MEDS ORDERED: CALCIUM CARBONATE 500 MG (TUMS) TAB.CHEW PO PRN (12:45)
[2018-06-10] MEDS ORDERED: cloNIDine 0.1 MG (CATAPRES) TAB PO PRN (12:45)
[2018-06-10] MEDS ORDERED: diphenhydrAMINE 25 MG TAB (BENADRYL) PO PRN (12:45)
--- NOTE | 2018-06-10 13:30 | NUR ---
Pt. came to the 4th floor ambulatory accompanied by . Pt. brought to her room and oriented to call light and bed controls.
[2018-06-10] MEDS ORDERED: PIPERACILLIN SODIUM/TAZOBACTAM 4.5 GM in NS (IVPB) 100 ML IV SCH (14:00)
[2018-06-10 14:04] LABS: BASOPHILS % (AUTO) 0 % (0-10); EOSINOPHILS % (AUTO) 0 % (0-10); HEMATOCRIT 36 % (35-52); HEMOGLOBIN 11.9 G/DL (11.5-16.0); LYMPHOCYTES # (AUTO) 0.5 X 10^3 (1.0-4.0); LYMPHOCYTES % (AUTO) 6 % (12-44); MEAN CORPUSCULAR HEMOGLOBIN 27 PG (25-34); MEAN CORPUSCULAR HGB CONC 33 G/DL (32-36); MEAN CORPUSCULAR VOLUME 81 FL (80-99); MONOCYTES # (AUTO) 0.3 X 10^3 (0.0-1.0); MONOCYTES % (AUTO) 4 % (0-12); NEUTROPHILS # (AUTO) 7.2 X 10^3 (1.8-7.8); NEUTROPHILS % (AUTO) 90 % (42-75); PLATELET COUNT 216 10^3/uL (130-400); RED BLOOD COUNT 4.46 10^6/uL (4.35-5.85)
--- NOTE | 2018-06-10 14:16 | Diagnostic Imaging Report ---
CLINICAL INDICATION: Patient with history of double pneumonia in January this year. Exam: Chest x-ray PA and lateral views. Comparisons: Chest x-ray dated 01/29/2018. Findings: Lungs/pleura: There is subtle patchy airspace opacity in the periphery of the right lung base. There is overall improved aeration of both lungs compared to the prior chest x-ray. There is no pneumothorax. There is no pleural effusion. Mediastinum: Unremarkable. Pulmonary vasculature: Unremarkable. Heart: Unremarkable. Bones/extrathoracic soft tissue: There are degenerative spurs involving the thoracic spine. Impression: 1: There is a subtle area of airspace opacity involving the periphery of the right lung base. This may represent infiltrate versus atelectasis, but lung nodule should be excluded. Follow up chest x-ray in 2 - 4 weeks is suggested to evaluate for interval resolution of this finding. 2: Otherwise, there is no radiographic evidence of acute cardiopulmonary process. 3: There is overall interval improved aeration of both lungs compared to the prior study. Dictated by: Dictated on workstation # [id number]
[2018-06-10 14:24] LABS: BAND NEUTROPHILS 13 %; BASOPHILS % (MANUAL) 0 %; EOSINOPHILS % (MANUAL) 0 %; LYMPHOCYTES % (MANUAL) 6 %; MONOCYTES % (MANUAL) 3 %; NEUTROPHILS % (MANUAL) 78 %; RBC MORPH NORMAL
[2018-06-10 14:25] LABS: ALANINE AMINOTRANSFERASE 19 U/L (0-55); ALBUMIN 4.1 GM/DL (3.2-4.5); ALKALINE PHOSPHATASE 76 U/L (40-136); BILIRUBIN,TOTAL 0.7 MG/DL (0.1-1.0); BUN/CREATININE RATIO 22; CARBON DIOXIDE 21 MMOL/L (21-32); CHLORIDE 107 MMOL/L (98-107); CREATININE SERUM 1.13 MG/DL (0.60-1.30); GFR ESTIMATED 49; GLUCOSE 259 MG/DL (70-105); POTASSIUM 3.9 MMOL/L (3.6-5.0); SODIUM 141 MMOL/L (135-145); TOTAL PROTEIN 6.5 GM/DL (6.4-8.2)
[2018-06-10 14:30] VITALS: BP 128/56
[2018-06-10] MEDS: NS IV 1000 ML 1,000 ML IV SCH (14:49)
--- OUTSIDE RECORDS SUMMARY | 2018-06-10 14:49 | XMS REPORT ---
Author Author REE DUMONT [facility] Address [address] [place] [address] Care Team Providers Care Wire Weaver Cloth Name Role Phone DUMONTREE Unavailable PROBLEMS Type Condition ICD9-CM Code ZCE72-VP Code Onset Dates Condition Status SNOMED Code Problem ZOSTAVAX DX V05.8 Active [id number] ALLERGIES No Information ENCOUNTERS Encounter Location Date Diagnosis [facility] [place], [facility] [id number] [place] [address] [id number] [id number] Mar, Encounter for immunization [id number] [place] [address] [id number] Mar, Encounter for immunization [id number] [place] [address] [id number] Mar, Encounter for immunization [address] [phone] Mar, 2015 Encounter for immunization [id number] [place] [address] [id number] Jul, 2012 IMMUNIZATIONS Vaccine Route Administration Date Status FLULAVAL QUAD 0.5ML (6 MO & UP) 2018 IM Intramuscular Apr 06, 2018 Administered PCV 13 IM Intramuscular Apr 06, 2018 Administered SOCIAL HISTORY Never Assessed REASON FOR VISIT Flu shot PLAN OF CARE VITAL SIGNS MEDICATIONS Unknown Medications RESULTS No Results PROCEDURES Procedure Date Ordered Result Body Site PCV 13 Apr 06, 2018 FLULAVAL QUAD 0.5ML (6 MO AND UP) 2017Apr 06, 2018 IMMUNIZATION ADMIN, EACH ADD (please include units) Apr 06, 2018 SINGLE IMMUNIZATION ADMIN Apr 06, 2018 INSTRUCTIONS MEDICATIONS ADMINISTERED No Known Medications
--- OUTSIDE RECORDS SUMMARY | 2018-06-10 15:07 | XMS REPORT | Continuity of Care Document ---
Demographics Preferred Language Unknown Marital Status Unknown Synagogue Affiliation Unknown Race Unknown Ethnic Group Unknown Author Author [facility] Address Unknown Phone Unavailable Allergies Active Description Code Type Severity Reaction Onset Reported/Identified Relationship to Patient Clinical Status Yes codeine [id number] Drug Allergy Unknown N/A 05/22/2007 Yes sulfamethoxazole [id number] Drug Allergy Unknown N/A 07/19/2008 Yes trimethoprim [id number] Drug Allergy Unknown N/A 07/19/2008 Yes codeine [id number] Drug Allergy Unknown PT HAS TAKEN HY 07/13/2014 Medications There is no data. Problems Date Dx Coded Attending Type Code [...] N64.89 OTHER SPECIFIED DISORDERS OF BREAST 04/07/2017 CATALINA CROSS DO Ot Z12.31 ENCNTR SCREEN MAMMOGRAM FOR MALIGNANT NE 04/10/2017 CATALINA CROSS DO Ot Z12.31 ENCNTR SCREEN MAMMOGRAM FOR MALIGNANT NE 04/16/2017 CATALINA CROSS DO Ot Z12.31 ENCNTR SCREEN MAMMOGRAM FOR MALIGNANT NE 05/16/2017 Ot 784.0 05/28/2017 CATALINA CROSS DO Ot E11.65 TYPE 2 DIABETES MELLITUS WITH HYPERGLYCE 05/28/2017 CATALINA CROSS DO Ot E78.5 HYPERLIPIDEMIA, UNSPECIFIED 05/28/2017 DEISY CROSS DOI Ot E86.0 DEHYDRATION 05/28/2017 CATALINA CROSS DO Ot I10 ESSENTIAL (PRIMARY) HYPERTENSION 05/28/2017 CATALINA CROSS DO Ot J20.8 ACUTE BRONCHITIS DUE TO OTHER SPECIFIED 05/28/2017 CATALINA CROSS DO Ot J45.41 MODERATE PERSISTENT ASTHMA WITH (ACUTE) 05/28/2017 CATALINA CROSS DO Ot T38.0X5A ADVERSE EFFECT OF GLUCOCORT/SYNTH ANALOG 05/28/2017 CATALINA CROSS DO Ot Z79.4 MCC (CURRENT) USE OF INSULIN 05/28/2017 CATALINA CROSS DO Ot Z79.899 OTHER BEAD PREPARER (CURRENT) DRUG THERAPY 05/28/2017 CATALINA CROSS DO Ot Z88.2 ALLERGY STATUS TO SULFONAMIDES STATUS 08/14/2017 Ot 784.0 01/15/2018 CATALINA CROSS DO Ot E03.9 HYPOTHYROIDISM, UNSPECIFIED 01/15/2018 CATALINA CROSS DO Ot E11.9 TYPE 2 DIABETES MELLITUS WITHOUT COMPLIC 01/15/2018 DEISY CROSS DOI Ot E66.9 OBESITY, UNSPECIFIED 01/15/2018 DEISY CROSS DOI Ot E78.2 MIXED HYPERLIPIDEMIA 01/15/2018 CATALINA CROSS DO Ot E86.0 DEHYDRATION 01/15/2018 CATALINA CROSS DO Ot G47.30 SLEEP APNEA, UNSPECIFIED 01/15/2018 TAY KATHLEEN CATALINA Ot I10 ESSENTIAL (PRIMARY) HYPERTENSION 01/15/2018 DEISY CROSS DOI Ot J20.9 ACUTE BRONCHITIS, UNSPECIFIED 01/15/2018 CATALINA CROSS DO Ot J45.41 MODERATE PERSISTENT ASTHMA WITH (ACUTE) 01/15/2018 CATALINA CROSS DO Ot Z68.35 BODY MASS INDEX (BMI) 35.0-35.9, ADULT 01/15/2018 CATALINA CROSS DO Ot Z79.4 BEAD PREPARER (CURRENT) USE OF INSULIN 01/29/2018 Ot A41.9 SEPSIS, UNSPECIFIED ORGANISM 01/29/2018 Ot D64.9 ANEMIA, UNSPECIFIED 01/29/2018 Ot E03.9 HYPOTHYROIDISM, UNSPECIFIED 01/29/2018 Ot E11.29 TYPE 2 DIABETES MELLITUS W OTH DIABETIC 01/29/2018 Ot E11.42 TYPE 2 DIABETES MELLITUS WITH DIABETIC P 01/29/2018 Ot E11.65 TYPE 2 DIABETES MELLITUS WITH HYPERGLYCE 01/29/2018 Ot E66.09 OTHER OBESITY DUE TO EXCESS CALORIES 01/29/2018 Ot E78.2 MIXED HYPERLIPIDEMIA 01/29/2018 Ot E86.0 DEHYDRATION 01/29/2018 Ot E87.2 ACIDOSIS 01/29/2018 Ot F32.9 MAJOR DEPRESSIVE DISORDER, SINGLE EPISOD 01/29/2018 Ot G47.33 OBSTRUCTIVE SLEEP APNEA (ADULT) (PEDIATR 01/29/2018 Ot I10 ESSENTIAL ( PRIMARY) HYPERTENSION 01/29/2018 Ot J18.9 PNEUMONIA, UNSPECIFIED ORGANISM 01/29/2018 Ot J44.0 CHRONIC OBSTRUCTIVE PULMON DISEASE W ACU 01/29/2018 Ot J45.901 UNSPECIFIED ASTHMA WITH (ACUTE) EXACERBA 01/29/2018 Ot J81.1 CHRONIC PULMONARY EDEMA 01/29/2018 Ot J96.90 RESPIRATORY FAILURE, UNSP, UNSP W HYPOXI 01/29/2018 Ot R50.81 FEVER PRESENTING WITH CONDITIONS CLASSIF 01/29/2018 Ot R53.81 OTHER MALAISE 01/29/2018 Ot R80.9 PROTEINURIA, UNSPECIFIED 01/29/2018 Ot Z68.35 BODY MASS INDEX (BMI) 35.0-35.9, ADULT 01/29/2018 Ot Z79.4 BEAD PREPARER ( CURRENT) USE OF INSULIN 03/03/2018 EMELY BILLY APRN Ot J18.9 PNEUMONIA, UNSPECIFIED ORGANISM 03/03/2018 EMELY BILLY APRN Ot J45.909 UNSPECIFIED ASTHMA, UNCOMPLICATED 03/03/2018 EMELY BILLY APRN Ot K80.20 CALCULUS OF GALLBLADDER W/O CHOLECYSTITI 03/18/2018 EMELY BILLY APRN Ot J18.9 PNEUMONIA, UNSPECIFIED ORGANISM 03/18/2018 EMELY BILLY APRN Ot J45.909 UNSPECIFIED ASTHMA, UNCOMPLICATED 03/18/2018 EMELY BILLY APRN Ot K80.20 CALCULUS OF GALLBLADDER W/O CHOLECYSTITI Procedures Code Description Performed By Performed On [id number] DRAINAGE OF RIGHT MAIN BRONCHUS, ENDO, D 01/24/2018 [id number] DRAINAGE OF LEFT MAIN BRONCHUS, ENDO, DI 01/24/2018 [id number] DRAINAGE OF RIGHT MIDDLE LUNG LOBE, ENDO 01/24/2018 [id number] EXTRACTION OF RIGHT MAIN BRONCHUS, ENDO, 01/24/2018 [id number] EXTRACTION OF RIGHT MIDDLE LOBE BRONCHUS 01/24/2018 [id number] EXTRACTION OF LEFT MAIN BRONCHUS, ENDO, 01/24/2018 [id number] DRAINAGE OF RIGHT MIDDLE LUNG LOBE, ENDO 01/29/2018 Results Test Result Range Influenza virus A and B antigen detection - 05/26/17 15:50 FLU RESULT NEGATIVE FOR INFLUENZA A AND B ANTIGENS BY IA NRG Capillary blood glucose measurement by glucometer (mass/volume) - 05/26/17 15: 56 Capillary blood glucose measurement by glucometer (mass/volume) 134 mg/dL 70-110 Complete blood count (CBC) with automated white blood cell (WBC) differential - 05/26/17 16:00 Blood leukocytes automated count (number/volume) 9.1 10*3/uL 4.3-11.0 Blood erythrocytes automated count (number/volume) 4.53 10*6/uL 4.35-5.85 Venous blood hemoglobin measurement (mass/volume) 12.7 g/dL 11.5-16.0 Blood hematocrit (volume fraction) 38 % 35-52 Automated erythrocyte mean corpuscular volume 83 [foz_us] 80-99 Automated erythrocyte mean corpuscular hemoglobin (mass per erythrocyte) 28 pg 25-34 Automated erythrocyte mean corpuscular hemoglobin concentration measurement ( mass/volume) 34 g/dL 32-36 Automated erythrocyte distribution width ratio 12.5 % 10.0-14.5 Automated blood platelet count (count/volume) 204 10*3/uL 130-400 Automated blood platelet mean volume measurement 9.8 [foz_us] 7.4-10.4 Automated blood neutrophils/100 leukocytes 74 % 42-75 Automated blood lymphocytes/100 leukocytes 18 % 12-44 Blood monocytes/100 leukocytes 7 % 0-12 Automated blood eosinophils/100 leukocytes 1 % 0-10 Automated blood basophils/100 leukocytes 0 % 0-10 Blood neutrophils automated count (number/volume) 6.7 10*3 1.8-7.8 Blood lymphocytes automated count (number/volume) 1.6 10*3 1.0-4.0 Blood monocytes automated count (number/volume) 0.6 10*3 0.0-1.0 Automated eosinophil count 0.1 10*3/uL 0.0-0.3 Automated blood basophil count (count/volume) 0.0 10*3/uL 0.0-0.1 Blood lactic acid measurement (moles/volume) - 05/26/17 16:00 Blood lactic acid measurement (moles/volume) 1.12 mmol/L 0.50-2.00 Comprehensive metabolic panel - 05/26/17 16:00 Serum or plasma sodium measurement (moles/volume) 141 mmol/L 135-145 Serum or plasma potassium measurement (moles/volume) 3.3 mmol/L 3.6-5.0 Serum or plasma chloride measurement (moles/volume) 106 mmol/L 98-107 Carbon dioxide 28 mmol/L 21-32 Serum or plasma anion gap determination (moles/volume) 7 mmol/L 5-14 Serum or plasma urea nitrogen measurement (mass/volume) 12 mg/dL 7-18 Serum or plasma creatinine measurement (mass/volume) 0.80 mg/dL 0.60-1.30 Serum or plasma urea nitrogen/creatinine mass ratio 15 NRG Serum or plasma creatinine measurement with calculation of estimated glomerular filtration rate > NRG Serum or plasma glucose measurement (mass/volume) 110 mg/dL 70-105 Serum or plasma calcium measurement (mass/volume) 9.3 mg/dL 8.5-10.1 Serum or plasma total bilirubin measurement (mass/volume) 0.7 mg/dL 0.1-1.0 Serum or plasma alkaline phosphatase measurement (enzymatic activity/volume) 96 U/L 40-136 Serum or plasma aspartate aminotransferase measurement (enzymatic activity/ volume) 12 U/L 5-34 Serum or plasma alanine aminotransferase measurement (enzymatic activity/volume ) 14 U/L 0-55 Serum or plasma protein measurement (mass/volume) 6.9 g/dL 6.4-8.2 Serum or plasma albumin measurement (mass/volume) 4.1 g/dL 3.2-4.5 Bacterial blood culture - 05/26/17 16:00 Bacterial blood culture NG NRG Bacterial blood culture - 05/26/17 16:10 Bacterial blood culture NG NRG Capillary blood glucose measurement by glucometer (mass/volume) - 05/26/17 21: 08 Capillary blood glucose measurement by glucometer (mass/volume) 241 mg/dL 70-110 Capillary blood glucose measurement by glucometer (mass/volume) - 05/27/17 05: 11 Capillary blood glucose measurement by glucometer (mass/volume) 350 mg/dL 70-110 Complete blood count (CBC) with automated white blood cell (WBC) differential - 05/27/17 05:38 Blood leukocytes automated count (number/volume) 11.0 10*3/uL 4.3-11.0 Blood erythrocytes automated count (number/volume) 4.64 10*6/uL 4.35-5.85 Venous blood hemoglobin measurement (mass/volume) 13.0 g/dL 11.5-16.0 Blood hematocrit (volume fraction) 38 % 35-52 Automated erythrocyte mean corpuscular volume 82 [foz_us] 80-99 Automated erythrocyte mean corpuscular hemoglobin (mass per erythrocyte) 28 pg 25-34 Automated erythrocyte mean corpuscular hemoglobin concentration measurement ( mass/volume) 34 g/dL 32-36 Automated erythrocyte distribution width ratio 12.6 % 10.0-14.5 Automated blood platelet count (count/volume) 234 10*3/uL 130-400 Automated blood platelet mean volume measurement 10.1 [foz_us] 7.4-10.4 Automated blood neutrophils/100 leukocytes 94 % 42-75 Automated blood lymphocytes/100 leukocytes 6 % 12-44 Blood monocytes/100 leukocytes 1 % 0-12 Automated blood eosinophils/100 leukocytes 0 % 0-10 Automated blood basophils/100 leukocytes 0 % 0-10 Blood neutrophils automated count (number/volume) 10.3 10*3 1.8-7.8 Blood lymphocytes automated count (number/volume) 0.7 10*3 1.0-4.0 Blood monocytes automated count (number/volume) 0.1 10*3 0.0-1.0 Automated eosinophil count 0.0 10*3/uL 0.0-0.3 Automated blood basophil count (count/volume) 0.0 10*3/uL 0.0-0.1 Blood manual differential performed detection - 05/27/17 05:38 Blood monocytes/100 leukocytes 3 % NRG Manual blood segmented neutrophils/100 leukocytes 90 % NRG Blood band neutrophils/100 leukocytes 0 % NRG Manual blood lymphocytes/100 leukocytes 3 % NRG Manual eosinophils/100 leukocytes in nose 0 % NRG Manual blood basophils/100 leukocytes 0 % NRG Blood lymphocytes variant/100 leukocytes 4 % NRG Blood erythrocyte morphology finding identification NORMAL NR Comprehensive metabolic panel - 05/27/17 05:38 Serum or plasma sodium measurement (moles/volume) 139 mmol/L 135-145 Serum or plasma potassium measurement (moles/volume) 3.9 mmol/L 3.6-5.0 Serum or plasma chloride measurement (moles/volume) 106 mmol/L 98-107 Carbon dioxide 18 mmol/L 21-32 Serum or plasma anion gap determination (moles/volume) 15 mmol/L 5-14 Serum or plasma urea nitrogen measurement (mass/volume) 19 mg/dL 7-18 Serum or plasma creatinine measurement (mass/volume) 1.09 mg/dL 0.60-1.30 Serum or plasma urea nitrogen/creatinine mass ratio 17 NRG Serum or plasma creatinine measurement with calculation of estimated glomerular filtration rate 51 NRG Serum or plasma glucose measurement (mass/volume) 375 mg/dL 70-105 Serum or plasma calcium measurement (mass/volume) 9.7 mg/dL 8.5-10.1 Serum or plasma total bilirubin measurement (mass/volume) 0.6 mg/dL 0.1-1.0 Serum or plasma alkaline phosphatase measurement (enzymatic activity/volume) 108 U/L 40-136 Serum or plasma aspartate aminotransferase measurement (enzymatic activity/ volume) 13 U/L 5-34 Serum or plasma alanine aminotransferase measurement (enzymatic activity/volume ) 13 U/L 0-55 Serum or plasma protein measurement (mass/volume) 7.0 g/dL 6.4-8.2 Serum or plasma albumin measurement (mass/volume) 4.1 g/dL 3.2-4.5 Capillary blood glucose measurement by glucometer (mass/volume) - 05/27/17 11: 24 Capillary blood glucose measurement by glucometer (mass/volume) 418 mg/dL 70-110 Capillary blood glucose measurement by glucometer (mass/volume) - 05/27/17 15: 44 Capillary blood glucose measurement by glucometer (mass/volume) 434 mg/dL 70-110 Capillary blood glucose measurement by glucometer (mass/volume) - 05/27/17 20: 48 Capillary blood glucose measurement by glucometer (mass/volume) 487 mg/dL 70-110 Complete blood count (CBC) with automated white blood cell (WBC) differential - 05/28/17 05:23 Blood leukocytes automated count (number/volume) 12.6 10*3/uL 4.3-11.0 Blood erythrocytes automated count (number/volume) 4.16 10*6/uL 4.35-5.85 Venous blood hemoglobin measurement (mass/volume) 11.8 g/dL 11.5-16.0 Blood hematocrit (volume fraction) 35 % 35-52 Automated erythrocyte mean corpuscular volume 84 [foz_us] 80-99 Automated erythrocyte mean corpuscular hemoglobin (mass per erythrocyte) 28 pg 25-34 Automated erythrocyte mean corpuscular hemoglobin concentration measurement ( mass/volume) 34 g/dL 32-36 Automated erythrocyte distribution width ratio 12.7 % 10.0-14.5 Automated blood platelet count (count/volume) 240 10*3/uL 130-400 Automated blood platelet mean volume measurement 10.3 [foz_us] 7.4-10.4 Automated blood neutrophils/100 leukocytes 90 % 42-75 Automated blood lymphocytes/100 leukocytes 7 % 12-44 Blood monocytes/100 leukocytes 3 % 0-12 Automated blood eosinophils/100 leukocytes 0 % 0-10 Automated blood basophils/100 leukocytes 0 % 0-10 Blood neutrophils automated count (number/volume) 11.4 10*3 1.8-7.8 Blood lymphocytes automated count (number/volume) 0.9 10*3 1.0-4.0 Blood monocytes automated count (number/volume) 0.3 10*3 0.0-1.0 Automated eosinophil count 0.0 10*3/uL 0.0-0.3 Automated blood basophil count (count/volume) 0.0 10*3/uL 0.0-0.1 Comprehensive metabolic panel - 05/28/17 05:23 Serum or plasma sodium measurement (moles/volume) 140 mmol/L 135-145 Serum or plasma potassium measurement (moles/volume) 4.0 mmol/L 3.6-5.0 Serum or plasma chloride measurement (moles/volume) 107 mmol/L 98-107 Carbon dioxide 23 mmol/L 21-32 Serum or plasma anion gap determination (moles/volume) 10 mmol/L 5-14 Serum or plasma urea nitrogen measurement (mass/volume) 27 mg/dL 7-18 Serum or plasma creatinine measurement (mass/volume) 1.04 mg/dL 0.60-1.30 Serum or plasma urea nitrogen/creatinine mass ratio 26 NRG Serum or plasma creatinine measurement with calculation of estimated glomerular filtration rate 54 NRG Serum or plasma glucose measurement (mass/volume) 442 mg/dL 70-105 Serum or plasma calcium measurement (mass/volume) 9.8 mg/dL 8.5-10.1 Serum or plasma total bilirubin measurement (mass/volume) 0.3 mg/dL 0.1-1.0 Serum or plasma alkaline phosphatase measurement (enzymatic activity/volume) 95 U/L 40-136 Serum or plasma aspartate aminotransferase measurement (enzymatic activity/ volume) 11 U/L 5-34 Serum or plasma alanine aminotransferase measurement (enzymatic activity/volume ) 16 U/L 0-55 Serum or plasma protein measurement (mass/volume) 6.3 g/dL 6.4-8.2 Serum or plasma albumin measurement (mass/volume) 3.7 g/dL 3.2-4.5 Complete blood count (CBC) with automated white blood cell (WBC) differential - 01/13/18 18:10 Blood leukocytes automated count (number/volume) 10.0 10*3/uL 4.3-11.0 Blood erythrocytes automated count (number/volume) 4.93 10*6/uL 4.35-5.85 Venous blood hemoglobin measurement (mass/volume) 13.9 g/dL 11.5-16.0 Blood hematocrit (volume fraction) 41 % 35-52 Automated erythrocyte mean corpuscular volume 83 [foz_us] 80-99 Automated erythrocyte mean corpuscular hemoglobin (mass per erythrocyte) 28 pg 25-34 Automated erythrocyte mean corpuscular hemoglobin concentration measurement ( mass/volume) 34 g/dL 32-36 Automated erythrocyte distribution width ratio 13.1 % 10.0-14.5 Automated blood platelet count (count/volume) 285 10*3/uL 130-400 Automated blood platelet mean volume measurement 9.8 [foz_us] 7.4-10.4 Automated blood neutrophils/100 leukocytes 67 % 42-75 Automated blood lymphocytes/100 leukocytes 24 % 12-44 Blood monocytes/100 leukocytes 5 % 0-12 Automated blood eosinophils/100 leukocytes 4 % 0-10 Automated blood basophils/100 leukocytes 1 % 0-10 Blood neutrophils automated count (number/volume) 6.7 10*3 1.8-7.8 Blood lymphocytes automated count (number/volume) 2.4 10*3 1.0-4.0 Blood monocytes automated count (number/volume) 0.5 10*3 0.0-1.0 Automated eosinophil count 0.4 10*3/uL 0.0-0.3 Automated blood basophil count (count/volume) 0.1 10*3/uL 0.0-0.1 Blood lactic acid measurement (moles/volume) - 01/13/18 18:10 Blood lactic acid measurement (moles/volume) 2.43 mmol/L 0.50-2.00 Comprehensive metabolic panel - 01/13/18 18:10 Serum or plasma sodium measurement (moles/volume) 145 mmol/L 135-145 Serum or plasma potassium measurement (moles/volume) 4.0 mmol/L 3.6-5.0 Serum or plasma chloride measurement (moles/volume) 109 mmol/L 98-107 Carbon dioxide 24 mmol/L 21-32 Serum or plasma anion gap determination (moles/volume) 12 mmol/L 5-14 Serum or plasma urea nitrogen measurement (mass/volume) 18 mg/dL 7-18 Serum or plasma creatinine measurement (mass/volume) 0.99 mg/dL 0.60-1.30 Serum or plasma urea nitrogen/creatinine mass ratio 18 NRG Serum or plasma creatinine measurement with calculation of estimated glomerular filtration rate 57 NRG Serum or plasma glucose measurement (mass/volume) 99 mg/dL 70-105 Serum or plasma calcium measurement (mass/volume) 10.4 mg/dL 8.5-10.1 Serum or plasma total bilirubin measurement (mass/volume) 0.3 mg/dL 0.1-1.0 Serum or plasma alkaline phosphatase measurement (enzymatic activity/volume) 125 U/L 40-136 Serum or plasma aspartate aminotransferase measurement (enzymatic activity/ volume) 18 U/L 5-34 Serum or plasma alanine aminotransferase measurement (enzymatic activity/volume ) 19 U/L 0-55 Serum or plasma protein measurement (mass/volume) 7.0 g/dL 6.4-8.2 Serum or plasma albumin measurement (mass/volume) 4.3 g/dL 3.2-4.5 Bacterial blood culture - 01/13/18 18:55 Bacterial blood culture NG NRG Bacterial blood culture - 01/13/18 18:55 Bacterial blood culture NG NRG Capillary blood glucose measurement by glucometer (mass/volume) - 01/13/18 20: 09 Capillary blood glucose measurement by glucometer (mass/volume) 51 mg/dL 70-110 Blood lactic acid measurement (moles/volume) - 01/13/18 21:25 Blood lactic acid measurement (moles/volume) 2.23 mmol/L 0.50-2.00 Capillary blood glucose measurement by glucometer (mass/volume) - 01/14/18 05: 36 Capillary blood glucose measurement by glucometer (mass/volume) 335 mg/dL 70-110 Complete blood count (CBC) with automated white blood cell (WBC) differential - 01/14/18 05:36 Blood leukocytes automated count (number/volume) 11.8 10*3/uL 4.3-11.0 Blood erythrocytes automated count (number/volume) 4.68 10*6/uL 4.35-5.85 Venous blood hemoglobin measurement (mass/volume) 13.5 g/dL 11.5-16.0 Blood hematocrit (volume fraction) 38 % 35-52 Automated erythrocyte mean corpuscular volume 82 [foz_us] 80-99 Automated erythrocyte mean corpuscular hemoglobin (mass per erythrocyte) 29 pg 25-34 Automated erythrocyte mean corpuscular hemoglobin concentration measurement ( mass/volume) 35 g/dL 32-36 Automated erythrocyte distribution width ratio 12.6 % 10.0-14.5 Automated blood platelet count (count/volume) 252 10*3/uL 130-400 Automated blood platelet mean volume measurement 10.1 [foz_us] 7.4-10.4 Automated blood neutrophils/100 leukocytes 89 % 42-75 Automated blood lymphocytes/100 leukocytes 9 % 12-44 Blood monocytes/100 leukocytes 1 % 0-12 Automated blood eosinophils/100 leukocytes 0 % 0-10 Automated blood basophils/100 leukocytes 0 % 0-10 Blood neutrophils automated count (number/volume) 10.5 10*3 1.8-7.8 Blood lymphocytes automated count (number/volume) 1.1 10*3 1.0-4.0 Blood monocytes automated count (number/volume) 0.1 10*3 0.0-1.0 Automated eosinophil count 0.0 10*3/uL 0.0-0.3 Automated blood basophil count (count/volume) 0.0 10*3/uL 0.0-0.1 Comprehensive metabolic panel - 01/14/18 05:36 Serum or plasma sodium measurement (moles/volume) 136 mmol/L 135-145 Serum or plasma potassium measurement (moles/volume) 4.3 mmol/L 3.6-5.0 Serum or plasma chloride measurement (moles/volume) 104 mmol/L 98-107 Carbon dioxide 20 mmol/L 21-32 Serum or plasma anion gap determination (moles/volume) 12 mmol/L 5-14 Serum or plasma urea nitrogen measurement (mass/volume) 16 mg/dL 7-18 Serum or plasma creatinine measurement (mass/volume) 0.99 mg/dL 0.60-1.30 Serum or plasma urea nitrogen/creatinine mass ratio 16 NRG Serum or plasma creatinine measurement with calculation of estimated glomerular filtration rate 57 NRG Serum or plasma glucose measurement (mass/volume) 355 mg/dL 70-105 Serum or plasma calcium measurement (mass/volume) 9.2 mg/dL 8.5-10.1 Serum or plasma total bilirubin measurement (mass/volume) 0.5 mg/dL 0.1-1.0 Serum or plasma alkaline phosphatase measurement (enzymatic activity/volume) 113 U/L 40-136 Serum or plasma aspartate aminotransferase measurement (enzymatic activity/ volume) 14 U/L 5-34 Serum or plasma alanine aminotransferase measurement (enzymatic activity/volume ) 22 U/L 0-55 Serum or plasma protein measurement (mass/volume) 6.5 g/dL 6.4-8.2 Serum or plasma albumin measurement (mass/volume) 4.2 g/dL 3.2-4.5 Capillary blood glucose measurement by glucometer (mass/volume) - 01/14/18 11: 07 Capillary blood glucose measurement by glucometer (mass/volume) 248 mg/dL 70-110 Capillary blood glucose measurement by glucometer (mass/volume) - 01/14/18 15: 29 Capillary blood glucose measurement by glucometer (mass/volume) 268 mg/dL 70-110 Capillary blood glucose measurement by glucometer (mass/volume) - 01/14/18 20: 31 Capillary blood glucose measurement by glucometer (mass/volume) 292 mg/dL 70-110 Capillary blood glucose measurement by glucometer (mass/volume) - 01/15/18 05: 29 Capillary blood glucose measurement by glucometer (mass/volume) 325 mg/dL 70-110 Automated blood complete blood count (hemogram) panel - 01/15/18 09:00 Blood leukocytes automated count (number/volume) 18.6 10*3/uL 4.3-11.0 Blood erythrocytes automated count (number/volume) 4.56 10*6/uL 4.35-5.85 Venous blood hemoglobin measurement (mass/volume) 12.8 g/dL 11.5-16.0 Blood hematocrit (volume fraction) 38 % 35-52 Automated erythrocyte mean corpuscular volume 84 [foz_us] 80-99 Automated erythrocyte mean corpuscular hemoglobin (mass per erythrocyte) 28 pg 25-34 Automated erythrocyte mean corpuscular hemoglobin concentration measurement ( mass/volume) 34 g/dL 32-36 Automated erythrocyte distribution width ratio 13.0 % 10.0-14.5 Automated blood platelet count (count/volume) 303 10*3/uL 130-400 Automated blood platelet mean volume measurement 9.3 [foz_us] 7.4-10.4 Blood lactic acid measurement (moles/volume) - 01/15/18 09:00 Blood lactic acid measurement (moles/volume) 6.86 mmol/L 0.50-2.00 Comprehensive metabolic panel - 01/15/18 09:00 Serum or plasma sodium measurement (moles/volume) 139 mmol/L 135-145 Serum or plasma potassium measurement (moles/volume) 3.7 mmol/L 3.6-5.0 Serum or plasma chloride measurement (moles/volume) 104 mmol/L 98-107 Carbon dioxide 22 mmol/L 21-32 Serum or plasma anion gap determination (moles/volume) 13 mmol/L 5-14 Serum or plasma urea nitrogen measurement (mass/volume) 19 mg/dL 7-18 Serum or plasma creatinine measurement (mass/volume) 1.39 mg/dL 0.60-1.30 Serum or plasma urea nitrogen/creatinine mass ratio 14 NRG Serum or plasma creatinine measurement with calculation of estimated glomerular filtration rate 39 NRG Serum or plasma glucose measurement (mass/volume) 378 mg/dL 70-105 Serum or plasma calcium measurement (mass/volume) 9.7 mg/dL 8.5-10.1 Serum or plasma total bilirubin measurement (mass/volume) 0.4 mg/dL 0.1-1.0 Serum or plasma alkaline phosphatase measurement (enzymatic activity/volume) 102 U/L 40-136 Serum or plasma aspartate aminotransferase measurement (enzymatic activity/ volume) 10 U/L 5-34 Serum or plasma alanine aminotransferase measurement (enzymatic activity/volume ) 19 U/L 0-55 Serum or plasma protein measurement (mass/volume) 6.5 g/dL 6.4-8.2 Serum or plasma albumin measurement (mass/volume) 4.2 g/dL 3.2-4.5 Capillary blood glucose measurement by glucometer (mass/volume) - 01/15/18 10: 35 Capillary blood glucose measurement by glucometer (mass/volume) 401 mg/dL 70-110 Serum or plasma lactate measurement (moles/volume) - 01/15/18 10:51 Serum or plasma lactate measurement (moles/volume) 5.85 mmol/L 0.50-2.00 Complete blood count (CBC) with automated white blood cell (WBC) differential - 01/19/18 08:48 Blood leukocytes automated count (number/volume) 14.5 10*3/uL 4.3-11.0 Blood erythrocytes automated count (number/volume) 4.54 10*6/uL 4.35-5.85 Venous blood hemoglobin measurement (mass/volume) 12.6 g/dL 11.5-16.0 Blood hematocrit (volume fraction) 38 % 35-52 Automated erythrocyte mean corpuscular volume 84 [foz_us] 80-99 Automated erythrocyte mean corpuscular hemoglobin (mass per erythrocyte) 28 pg 25-34 Automated erythrocyte mean corpuscular hemoglobin concentration measurement ( mass/volume) 33 g/dL 32-36 Automated erythrocyte distribution width ratio 13.0 % 10.0-14.5 Automated blood platelet count (count/volume) 206 10*3/uL 130-400 Automated blood platelet mean volume measurement 9.5 [foz_us] 7.4-10.4 Automated blood neutrophils/100 leukocytes 88 % 42-75 Automated blood lymphocytes/100 leukocytes 9 % 12-44 Blood monocytes/100 leukocytes 4 % 0-12 Automated blood eosinophils/100 leukocytes 0 % 0-10 Automated blood basophils/100 leukocytes 0 % 0-10 Blood neutrophils automated count (number/volume) 12.7 10*3 1.8-7.8 Blood lymphocytes automated count (number/volume) 1.2 10*3 1.0-4.0 Blood monocytes automated count (number/volume) 0.5 10*3 0.0-1.0 Automated eosinophil count 0.0 10*3/uL 0.0-0.3 Automated blood basophil count (count/volume) 0.0 10*3/uL 0.0-0.1 Comprehensive metabolic panel - 01/19/18 08:48 Serum or plasma sodium measurement (moles/volume) 139 mmol/L 135-145 Serum or plasma potassium measurement (moles/volume) 3.8 mmol/L 3.6-5.0 Serum or plasma chloride measurement (moles/volume) 106 mmol/L 98-107 Carbon dioxide 27 mmol/L 21-32 Serum or plasma anion gap determination (moles/volume) 6 mmol/L 5-14 Serum or plasma urea nitrogen measurement (mass/volume) 23 mg/dL 7-18 Serum or plasma creatinine measurement (mass/volume) 0.98 mg/dL 0.60-1.30 Serum or plasma urea nitrogen/creatinine mass ratio 23 NRG Serum or plasma creatinine measurement with calculation of estimated glomerular filtration rate 58 NRG Serum or plasma glucose measurement (mass/volume) 175 mg/dL 70-105 Serum or plasma calcium measurement (mass/volume) 8.9 mg/dL 8.5-10.1 Serum or plasma total bilirubin measurement (mass/volume) 0.8 mg/dL 0.1-1.0 Serum or plasma alkaline phosphatase measurement (enzymatic activity/volume) 82 U/L 40-136 Serum or plasma aspartate aminotransferase measurement (enzymatic activity/ volume) 26 U/L 5-34 Serum or plasma alanine aminotransferase measurement (enzymatic activity/volume ) 70 U/L 0-55 Serum or plasma protein measurement (mass/volume) 5.6 g/dL 6.4-8.2 Serum or plasma albumin measurement (mass/volume) 3.7 g/dL 3.2-4.5 Blood lactic acid measurement (moles/volume) - 01/19/18 08:48 Blood lactic acid measurement (moles/volume) 1.20 mmol/L 0.50-2.00 Blood manual differential performed detection - 01/19/18 08:48 Blood monocytes/100 leukocytes 3 % NRG Manual blood segmented neutrophils/100 leukocytes 86 % NRG Blood band neutrophils/100 leukocytes 0 % NRG Manual blood lymphocytes/100 leukocytes 11 % NRG Manual eosinophils/100 leukocytes in nose 0 % NRG Manual blood basophils/100 leukocytes 0 % NRG Blood erythrocyte morphology finding identification NORMAL NRG Complete blood count (CBC) with automated white blood cell (WBC) differential - 01/21/18 10:58 Blood leukocytes automated count (number/volume) 17.1 10*3/uL 4.3-11.0 Blood erythrocytes automated count (number/volume) 4.59 10*6/uL 4.35-5.85 Venous blood hemoglobin measurement (mass/volume) 13.3 g/dL 11.5-16.0 Blood hematocrit (volume fraction) 38 % 35-52 Automated erythrocyte mean corpuscular volume 83 [foz_us] 80-99 Automated erythrocyte mean corpuscular hemoglobin (mass per erythrocyte) 29 pg 25-34 Automated erythrocyte mean corpuscular hemoglobin concentration measurement ( mass/volume) 35 g/dL 32-36 Automated erythrocyte distribution width ratio 13.0 % 10.0-14.5 Automated blood platelet count (count/volume) 186 10*3/uL 130-400 Automated blood platelet mean volume measurement 9.8 [foz_us] 7.4-10.4 Automated blood neutrophils/100 leukocytes 91 % 42-75 Automated blood lymphocytes/100 leukocytes 5 % 12-44 Blood monocytes/100 leukocytes 5 % 0-12 Automated blood eosinophils/100 leukocytes 0 % 0-10 Automated blood basophils/100 leukocytes 0 % 0-10 Blood neutrophils automated count (number/volume) 15.5 10*3 1.8-7.8 Blood lymphocytes automated count (number/volume) 0.8 10*3 1.0-4.0 Blood monocytes automated count (number/volume) 0.8 10*3 0.0-1.0 Automated eosinophil count 0.0 10*3/uL 0.0-0.3 Automated blood basophil count (count/volume) 0.0 10*3/uL 0.0-0.1 Blood lactic acid measurement (moles/volume) - 01/21/18 10:58 Blood lactic acid measurement (moles/volume) 0.97 mmol/L 0.50-2.00 Comprehensive metabolic panel - 01/21/18 10:58 Serum or plasma sodium measurement (moles/volume) 130 mmol/L 135-145 Serum or plasma potassium measurement (moles/volume) 4.0 mmol/L 3.6-5.0 Serum or plasma chloride measurement (moles/volume) 97 mmol/L 98-107 Carbon dioxide 26 mmol/L 21-32 Serum or plasma anion gap determination (moles/volume) 7 mmol/L 5-14 Serum or plasma urea nitrogen measurement (mass/volume) 17 mg/dL 7-18 Serum or plasma creatinine measurement (mass/volume) 0.84 mg/dL 0.60-1.30 Serum or plasma urea nitrogen/creatinine mass ratio 20 NRG Serum or plasma creatinine measurement with calculation of estimated glomerular filtration rate > NRG Serum or plasma glucose measurement (mass/volume) 165 mg/dL 70-105 Serum or plasma calcium measurement (mass/volume) 9.0 mg/dL 8.5-10.1 Serum or plasma total bilirubin measurement (mass/volume) 1.1 mg/dL 0.1-1.0 Serum or plasma alkaline phosphatase measurement (enzymatic activity/volume) 77 U/L 40-136 Serum or plasma aspartate aminotransferase measurement (enzymatic activity/ volume) 15 U/L 5-34 Serum or plasma alanine aminotransferase measurement (enzymatic activity/volume ) 36 U/L 0-55 Serum or plasma protein measurement (mass/volume) 6.0 g/dL 6.4-8.2 Serum or plasma albumin measurement (mass/volume) 3.7 g/dL 3.2-4.5 CALCIUM CORRECTED 9.2 mg/dL 8.5-10.1 Serum or plasma lithium measurement (moles/volume) - 01/21/18 10:58 BNP level 223.4 pg/mL <100.0 Serum or plasma troponin i.cardiac measurement (mass/volume) - 01/21/18 10:58 Serum or plasma troponin i.cardiac measurement (mass/volume) < ng/ mL <0.30 Blood manual differential performed detection - 01/21/18 10:58 Blood monocytes/100 leukocytes 6 % NRG Manual blood segmented neutrophils/100 leukocytes 84 % NRG Blood band neutrophils/100 leukocytes 6 % NRG Manual blood lymphocytes/100 leukocytes 3 % NRG Manual eosinophils/100 leukocytes in nose 0 % NRG Manual blood basophils/100 leukocytes 0 % NRG Blood lymphocytes variant/100 leukocytes 1 % NRG Blood ovalocytes detection by light microscopy SLIGHT NRG Blood poikilocytosis detection by light microscopy SLIGHT NRG Blood microcytes detection by light microscopy SLIGHT NRG Blood stomatocytes detection by light microscopy SLIGHT NRG Complete urinalysis with reflex to culture - 01/21/18 11:07 Urine color determination YELLOW NRG Urine clarity determination CLEAR NRG Urine pH measurement by test strip 6 5-9 Specific gravity of urine by test strip 1.010 1.016- 1.022 Urine protein assay by test strip, semi-quantitative 3+ NEGATIVE Urine glucose detection by automated test strip NEGATIVE NEGATIVE Erythrocytes detection in urine sediment by light microscopy 2+ NEGATIVE Urine ketones detection by automated test strip NEGATIVE NEGATIVE Urine nitrite detection by test strip NEGATIVE NEGATIVE Urine total bilirubin detection by test strip NEGATIVE NEGATIVE Urine urobilinogen measurement by automated test strip (mass/volume) 1 mg/dL NORMAL Urine leukocyte esterase detection by dipstick 1+ NEGATIVE Automated urine sediment erythrocyte count by microscopy (number/high power field) [HPF] NRG Automated urine sediment leukocyte count by microscopy (number/high power field ) [HPF] NRG Bacteria detection in urine sediment by light microscopy NEGATIVE NRG Squamous epithelial cells detection in urine sediment by light microscopy 0-2 NRG Crystals detection in urine sediment by light microscopy NONE NRG Casts detection in urine sediment by light microscopy NONE NRG Mucus detection in urine sediment by light microscopy SMALL NRG Complete urinalysis with reflex to culture NO NRG Renal epithelial cells detection in urine sediment by light microscopy NONE NRG Blood lactic acid measurement (moles/volume) - 01/23/18 11:26 Blood lactic acid measurement (moles/volume) 1.40 mmol/L 0.50-2.00 Complete blood count (CBC) with automated white blood cell (WBC) differential - 01/23/18 11:37 Blood leukocytes automated count (number/volume) 18.2 10*3/uL 4.3-11.0 Blood erythrocytes automated count (number/volume) 4.53 10*6/uL 4.35-5.85 Venous blood hemoglobin measurement (mass/volume) 12.8 g/dL 11.5-16.0 Blood hematocrit (volume fraction) 37 % 35-52 Automated erythrocyte mean corpuscular volume 82 [foz_us] 80-99 Automated erythrocyte mean corpuscular hemoglobin (mass per erythrocyte) 28 pg 25-34 Automated erythrocyte mean corpuscular hemoglobin concentration measurement ( mass/volume) 35 g/dL 32-36 Automated erythrocyte distribution width ratio 13.1 % 10.0-14.5 Automated blood platelet count (count/volume) 181 10*3/uL 130-400 Automated blood platelet mean volume measurement 10.3 [foz_us] 7.4-10.4 Automated blood neutrophils/100 leukocytes 95 % 42-75 Automated blood lymphocytes/100 leukocytes 3 % 12-44 Blood monocytes/100 leukocytes 2 % 0-12 Automated blood eosinophils/100 leukocytes 0 % 0-10 Automated blood basophils/100 leukocytes 0 % 0-10 Blood neutrophils automated count (number/volume) 17.3 10*3 1.8-7.8 Blood lymphocytes automated count (number/volume) 0.5 10*3 1.0-4.0 Blood monocytes automated count (number/volume) 0.4 10*3 0.0-1.0 Automated eosinophil count 0.0 10*3/uL 0.0-0.3 Automated blood basophil count (count/volume) 0.0 10*3/uL 0.0-0.1 Fibrin D-dimer FEU measurement in platelet poor plasma (mass/volume) - 11:37 Fibrin D-dimer FEU measurement in platelet poor plasma (mass/volume) 3.71 ug/mL 0.00-0.49 Comprehensive metabolic panel - 01/23/18 11:37 Serum or plasma sodium measurement (moles/volume) 128 mmol/L 135-145 Serum or plasma potassium measurement (moles/volume) 4.3 mmol/L 3.6-5.0 Serum or plasma chloride measurement (moles/volume) 97 mmol/L 98-107 Carbon dioxide 22 mmol/L 21-32 Serum or plasma anion gap determination (moles/volume) 9 mmol/L 5-14 Serum or plasma urea nitrogen measurement (mass/volume) 13 mg/dL 7-18 Serum or plasma creatinine measurement (mass/volume) 0.86 mg/dL 0.60-1.30 Serum or plasma urea nitrogen/creatinine mass ratio 15 NRG Serum or plasma creatinine measurement with calculation of estimated glomerular filtration rate > NRG Serum or plasma glucose measurement (mass/volume) 231 mg/dL 70-105 Serum or plasma calcium measurement (mass/volume) 9.4 mg/dL 8.5-10.1 Serum or plasma total bilirubin measurement (mass/volume) 1.1 mg/dL 0.1-1.0 Serum or plasma alkaline phosphatase measurement (enzymatic activity/volume) 75 U/L 40-136 Serum or plasma aspartate aminotransferase measurement (enzymatic activity/ volume) 25 U/L 5-34 Serum or plasma alanine aminotransferase measurement (enzymatic activity/volume ) 28 U/L 0-55 Serum or plasma protein measurement (mass/volume) 6.3 g/dL 6.4-8.2 Serum or plasma albumin measurement (mass/volume) 3.5 g/dL 3.2-4.5 CALCIUM CORRECTED 9.8 mg/dL 8.5-10.1 Serum or plasma phosphate measurement (mass/volume) - 01/23/18 11:37 Serum or plasma phosphate measurement (mass/volume) 1.3 mg/dL 2.3-4.7 Magnesium - 01/23/18 11:37 Magnesium 1.8 mg/dL 1.8-2.4 Serum or plasma troponin i.cardiac measurement (mass/volume) - 01/23/18 11:37 Serum or plasma troponin i.cardiac measurement (mass/volume) < ng/ mL <0.30 Serum or plasma lithium measurement (moles/volume) - 01/23/18 11:37 BNP level 134.4 pg/mL <100.0 Arterial blood gas measurement - 01/23/18 11:46 Blood pCO2 25 mm[Hg] 35-45 Blood pO2 70 mm[Hg] 79-93 Arterial blood bicarbonate measurement (moles/volume) 22 mmol/L 23-27 Arterial blood base excess by calculation -0.6 mmol/L - 2.5-2.5 Arterial blood oxygen saturation measurement 96 % 94-100 * Inhaled oxygen flow rate NA NRG Arterial blood pH measurement with patient temperature correction 7.55 7.37-7.43 Arterial blood carbon dioxide, total measurement (moles/volume) 22.4 mmol/L 21.0-31.0 Body site NA NRG Assessment of wrist artery patency prior to arterial puncture NA NRG Setting of ventilation mode NA NRG Measurement of body temperature 98.8 NRG Complete urinalysis with reflex to culture - 01/23/18 13:20 Urine color determination TOM NRG Urine clarity determination CLEAR NRG Urine pH measurement by test strip 5 5-9 Specific gravity of urine by test strip 1.020 1.016- 1.022 Urine protein assay by test strip, semi-quantitative 4+ NEGATIVE Urine glucose detection by automated test strip 3+ NEGATIVE Erythrocytes detection in urine sediment by light microscopy 3+ NEGATIVE Urine ketones detection by automated test strip 3+ NEGATIVE Urine nitrite detection by test strip NEGATIVE NEGATIVE Urine total bilirubin detection by test strip NEGATIVE NEGATIVE Urine urobilinogen measurement by automated test strip (mass/volume) 4 mg/dL NORMAL Urine leukocyte esterase detection by dipstick 1+ NEGATIVE Automated urine sediment erythrocyte count by microscopy (number/high power field) [HPF] NRG Automated urine sediment leukocyte count by microscopy (number/high power field ) [HPF] NRG Bacteria detection in urine sediment by light microscopy FEW NRG Crystals detection in urine sediment by light microscopy PRESENT NRG Casts detection in urine sediment by light microscopy NONE NRG Mucus detection in urine sediment by light microscopy NEGATIVE NRG Complete urinalysis with reflex to culture YES NRG Amorphous sediment detection in urine sediment by light microscopy LARGE VIKASH URATES NRG Bacterial urine culture - 01/23/18 13:20 Bacterial urine culture RML NRG COLONY COUNT . NRG Capillary blood glucose measurement by glucometer (mass/volume) - 01/23/18 16: 59 Capillary blood glucose measurement by glucometer (mass/volume) 197 mg/dL 70-110 Capillary blood glucose measurement by glucometer (mass/volume) - 01/23/18 21: 14 Capillary blood glucose measurement by glucometer (mass/volume) 350 mg/dL 70-110 Capillary blood glucose measurement by glucometer (mass/volume) - 01/23/18 23: 43 Capillary blood glucose measurement by glucometer (mass/volume) 346 mg/dL 70-110 Complete blood count (CBC) with automated white blood cell (WBC) differential - 01/24/18 03:40 Blood leukocytes automated count (number/volume) 9.0 10*3/uL 4.3-11.0 Blood erythrocytes automated count (number/volume) 3.85 10*6/uL 4.35-5.85 Venous blood hemoglobin measurement (mass/volume) 10.9 g/dL 11.5-16.0 Blood hematocrit (volume fraction) 32 % 35-52 Automated erythrocyte mean corpuscular volume 83 [foz_us] 80-99 Automated erythrocyte mean corpuscular hemoglobin (mass per erythrocyte) 28 pg 25-34 Automated erythrocyte mean corpuscular hemoglobin concentration measurement ( mass/volume) 34 g/dL 32-36 Automated erythrocyte distribution width ratio 13.2 % 10.0-14.5 Automated blood platelet count (count/volume) 154 10*3/uL 130-400 Automated blood platelet mean volume measurement 10.2 [foz_us] 7.4-10.4 Automated blood neutrophils/100 leukocytes 96 % 42-75 Automated blood lymphocytes/100 leukocytes 3 % 12-44 Blood monocytes/100 leukocytes 1 % 0-12 Automated blood eosinophils/100 leukocytes 0 % 0-10 Automated blood basophils/100 leukocytes 0 % 0-10 Blood neutrophils automated count (number/volume) 8.6 10*3 1.8-7.8 Blood lymphocytes automated count (number/volume) 0.2 10*3 1.0-4.0 Blood monocytes automated count (number/volume) 0.1 10*3 0.0-1.0 Automated eosinophil count 0.0 10*3/uL 0.0-0.3 Automated blood basophil count (count/volume) 0.0 10*3/uL 0.0-0.1 Comprehensive metabolic panel - 01/24/18 03:40 Serum or plasma sodium measurement (moles/volume) 137 mmol/L 135-145 Serum or plasma potassium measurement (moles/volume) 3.4 mmol/L 3.6-5.0 Serum or plasma chloride measurement (moles/volume) 110 mmol/L 98-107 Carbon dioxide 15 mmol/L 21-32 Serum or plasma anion gap determination (moles/volume) 12 mmol/L 5-14 Serum or plasma urea nitrogen measurement (mass/volume) 13 mg/dL 7-18 Serum or plasma creatinine measurement (mass/volume) 0.74 mg/dL 0.60-1.30 Serum or plasma urea nitrogen/creatinine mass ratio 18 NRG Serum or plasma creatinine measurement with calculation of estimated glomerular filtration rate > NRG Serum or plasma glucose measurement (mass/volume) 290 mg/dL 70-105 Serum or plasma calcium measurement (mass/volume) 8.1 mg/dL 8.5-10.1 Serum or plasma total bilirubin measurement (mass/volume) 0.4 mg/dL 0.1-1.0 Serum or plasma alkaline phosphatase measurement (enzymatic activity/volume) 78 U/L 40-136 Serum or plasma aspartate aminotransferase measurement (enzymatic activity/ volume) 26 U/L 5-34 Serum or plasma alanine aminotransferase measurement (enzymatic activity/volume ) 36 U/L 0-55 Serum or plasma protein measurement (mass/volume) 5.2 g/dL 6.4-8.2 Serum or plasma albumin measurement (mass/volume) 2.9 g/dL 3.2-4.5 CALCIUM CORRECTED 9.0 mg/dL 8.5-10.1 Serum or plasma phosphate measurement (mass/volume) - 01/24/18 03:40 Serum or plasma phosphate measurement (mass/volume) 2.7 mg/dL 2.3-4.7 Magnesium - 01/24/18 03:40 Magnesium 2.0 mg/dL 1.8-2.4 Blood lactic acid measurement (moles/volume) - 01/24/18 06:10 Blood lactic acid measurement (moles/volume) 1.21 mmol/L 0.50-2.00 Mycobacterium species detection by organism specific culture - 01/24/18 07:30 Mycobacterium species detection by organism specific culture - 01/24/18 07:30 Capillary blood glucose measurement by glucometer (mass/volume) - 01/24/18 11: 14 Capillary blood glucose measurement by glucometer (mass/volume) 289 mg/dL 70-110 Encounters ACCT No. Visit Date/Time Discharge Status Pt. Type Provider Facility Loc./Unit Complaint [id number] 07/24/2012 11:07:00 07/24/2012 23:59:59 CLS Outpatient [id number] 04/16/2018 15:03:00 04/16/2018 23:59:59 CLS Outpatient CATALINA CROSS DO [facility] RAD SCREENING [id number] 03/02/2018 09:02:00 03/02/2018 23:59:59 CLS Outpatient EMELY BILLY APRN [facility] RAD J18.9 PNEUMONIA [id number] 05/26/2017 15:25:00 05/28/2017 13:30:00 DIS Inpatient CATALINA CROSS DO [facility] 4TH WHEEZING [id number] 04/04/2017 10:15:00 04/04/2017 23:59:59 CLS Outpatient CROSS DO, CATALINA [facility] RAD Z12.31 SCREENING [id number] 02/03/2016 09:23:00 02/03/2016 23:59:59 CLS Outpatient VICTOR HUGO ZIMMERMAN [facility] QUICK BACK PAIN/FALL [id number] 01/26/2016 08:35:00 01/26/2016 23:59:59 CLS Outpatient CROSS DO, CATALINA [facility] RAD OTHER SPECIFIED DISORDER OF BREAST [id number] 01/19/2016 09:40:00 01/19/2016 23:59:59 CLS Outpatient KOLTON MIRELES APRN [facility] QUICK [id number] 01/03/2016 09:10:00 01/03/2016 23:59:59 CLS Outpatient CROSS DO, CATALINA [facility] RAD SCREENING [id number] 12/26/2014 14:41:00 12/26/2014 23:59:59 CLS Outpatient CROSS DO, CATALINA [facility] RAD [id number] 07/13/2014 11:15:00 07/18/2014 13:00:00 DIS Inpatient CROSS DO, CATALINA [facility] 4TH [id number] 12/21/2013 08:41:00 12/21/2013 23:59:59 CLS Outpatient CROSS DO, CATALINA [facility] RAD [id number] 10/09/2012 15:17:00 10/09/2012 23:59:59 CLS Outpatient CROSS DO, CATALINA [facility] RAD [id number] 01/24/2018 06:45:00 Document Registration [id number] 01/21/2018 11:06:00 Document Registration [id number] 01/19/2018 08:55:00 Document Registration [id number] 01/13/2018 17:46:00 ACT Inpatient CROSS DO, CATALINA [facility] 4TH WHEEZING [id number] 07/13/2014 11:31:00 Document Registration [id number] 07/13/2014 11:31:00 Document Registration [id number] 07/13/2014 11:31:00 Document Registration [id number] 09/06/2011 15:18:00 Document Registration [id number] 06/03/2011 14:52:00 Document Registration [id number] 08/27/2010 08:34:00 Document Registration [id number] 12/31/2009 10:20:00 Document Registration [id number] 08/31/2009 08:53:00 Document Registration [id number] 06/28/2009 11:24:00 Document Registration [id number] 06/21/2009 10:38:00 Document Registration [id number] 05/22/2007 06:51:00 Document Registration [id number] 12/27/2014 03:26:59 ACT Document Registration
[2018-06-10] MEDS ORDERED: HYDR-3923 PO (15:45)
[2018-06-10] MEDS ORDERED: HYDR25TA4 PO (15:45)
[2018-06-10] MEDS ORDERED: LEVA1.2521 NEB (15:45)
[2018-06-10] MEDS ORDERED: MONT10TA21 PO (15:45)
[2018-06-10] MEDS ORDERED: FURO40TA4 PO (15:45)
[2018-06-10] MEDS ORDERED: MINO2.5T PO (15:45)
[2018-06-10] MEDS ORDERED: IRBE300T18 PO (15:45)
[2018-06-10] MEDS ORDERED: PRD10T PO (15:45)
[2018-06-10] MEDS ORDERED: FLUT16SP22 NS (15:45)
[2018-06-10] MEDS: inSUlin ASPART (NovoLOG) 1 UNIT/0.01 ML (CHARGE PER UNIT) SC SCH ×2 (15:56→23:07)
[2018-06-10] MEDS: ENOXAPARIN 40 MG/0.4 ML (LOVENOX) SYR SC SCH (15:56)
[2018-06-10 16:00] VITALS: BP 124/72
[2018-06-10 16:02] VITALS: BP 128/56
--- NOTE | 2018-06-10 16:05 | NUR ---
Dr. Bains notified of Pulmonology consult.
[2018-06-10] MEDS: methylPREDNISolone 40 MG/ML (Solu-MEDROL) VIAL IV SCH ×2 (17:39→23:53)
[2018-06-10] MEDS: RT-ALBUTEROL/IPRATROPIUM 3 ML (DUONEB) VIAL INH SCH ×2 (18:00→23:15)
[2018-06-10 20:00] VITALS: BP 130/71
[2018-06-10] MEDS: PIPERACILLIN SODIUM/TAZOBACTAM 4.5 GM in NS (IVPB) 100 ML IV SCH (23:07)
[2018-06-10] MEDS: RT-BUDESONIDE NEBS 0.5 MG/2ML (PULMICORT) AMP INH SCH (23:15)
[2018-06-10 23:42] VITALS: BP 159/72
[2018-06-11] MEDS: RT-ALBUTEROL/IPRATROPIUM 3 ML (DUONEB) VIAL INH SCH ×2 (02:54→06:52)
[2018-06-11 04:00] VITALS: BP 152/68
[2018-06-11 06:10] LABS: BASOPHILS % (AUTO) 0 % (0-10); EOSINOPHILS % (AUTO) 0 % (0-10); HEMATOCRIT 35 % (35-52); HEMOGLOBIN 11.6 G/DL (11.5-16.0); LYMPHOCYTES # (AUTO) 0.6 X 10^3 (1.0-4.0); LYMPHOCYTES % (AUTO) 9 % (12-44); MEAN CORPUSCULAR HEMOGLOBIN 27 PG (25-34); MEAN CORPUSCULAR HGB CONC 33 G/DL (32-36); MEAN CORPUSCULAR VOLUME 81 FL (80-99); MEAN PLATELET VOLUME 10.4 FL (7.4-10.4); MONOCYTES # (AUTO) 0.1 X 10^3 (0.0-1.0); MONOCYTES % (AUTO) 1 % (0-12); NEUTROPHILS # (AUTO) 5.4 X 10^3 (1.8-7.8); NEUTROPHILS % (AUTO) 89 % (42-75); PLATELET COUNT 209 10^3/uL (130-400); RED BLOOD COUNT 4.32 10^6/uL (4.35-5.85); RED CELL DISTRIBUTION WIDTH 12.6 % (10.0-14.5); WHITE BLOOD COUNT 6.1 10^3/uL (4.3-11.0)
[2018-06-11] MEDS: NS IV 1000 ML 1,000 ML IV SCH ×3 (06:21→21:28)
[2018-06-11] MEDS: inSUlin ASPART (NovoLOG) 1 UNIT/0.01 ML (CHARGE PER UNIT) SC SCH ×6 (06:21→20:40)
[2018-06-11] MEDS: methylPREDNISolone 40 MG/ML (Solu-MEDROL) VIAL IV SCH ×4 (06:21→23:56)
[2018-06-11] MEDS: PIPERACILLIN SODIUM/TAZOBACTAM 4.5 GM in NS (IVPB) 100 ML IV SCH ×3 (06:22→21:27)
[2018-06-11 06:26] LABS: ALBUMIN 3.9 GM/DL (3.2-4.5); BILIRUBIN,TOTAL 0.6 MG/DL (0.1-1.0); CALCIUM 9.3 MG/DL (8.5-10.1); CREATININE SERUM 1.01 MG/DL (0.60-1.30); POTASSIUM 3.9 MMOL/L (3.6-5.0); TOTAL PROTEIN 6.5 GM/DL (6.4-8.2)
[2018-06-11] MEDS: RT-BUDESONIDE NEBS 0.5 MG/2ML (PULMICORT) AMP INH SCH ×2 (06:52→19:43)
--- NOTE | 2018-06-11 07:54 | Pulmonary Consultation ---
History of Present Illness History of Present Illness Date of Consultation 06/11/18 07:53 Date of Admission Allergies and Home Medications Allergies Coded Allergies: codeine (Verified Allergy, Unknown, PT HAS TAKEN HYDROCODONE W/O ISSUE, ) sulfamethoxazole (Verified Allergy, Unknown, 07/19/08) trimethoprim (Verified Allergy, Unknown, 07/19/08) Home Medications Aspirin 81 Mg Tab.chew, 81 MG PO DAILY, (Reported) Fluticasone Propionate 16 Gm [place].susp, 1 SPRAY NS DAILY, (Reported) Fluticasone/Salmeterol 1 Each Blst.w.dev, 1 PUFF IH BID, (Reported) Furosemide 40 Mg Tablet, 40 MG PO MoWeFr, (Reported) Hydralazine HCl 25 Mg Tablet, 25 MG PO TID, (Reported) Insulin Aspart 300 Units/3 Ml Solution, 15-20 UNITS SQ AC, (Reported) Insulin Detemir 100 Unit/1 Ml Insuln.pen, 20-38 UNITS SQ HS, (Reported) Irbesartan 300 Mg Tablet, 300 MG PO DAILY, (Reported) Levalbuterol HCl 1.25 Mg/0.5 Ml Vial.neb, 1.25 MG NEB Q4H, (Reported) Levothyroxine Sodium 75 Mcg Tablet, 75 MCG PO 0430, (Reported) Minoxidil 2.5 Mg Tablet, 5 MG PO DAILY, (Reported) TAKES 2 (2.5MG) TABLETS Montelukast Sodium 10 Mg Tablet, 10 MG PO HS, (Reported) Nebivolol HCl 5 Mg Tablet, 5 MG PO DAILY, (Reported) Pravastatin Sodium 10 Mg Tablet, 5 MG PO MoWeFr, (Reported) TAKES 1/2 OF A (10 MG) TABLET Prednisone 10 Mg Tab, PO UD, (Reported) TAKE 4 TABS DAILY X 4 DAYS THEN 3 TABS X3 DAYS, THEN 2 TABS X2 DAYS, THEN 1 TAB DAILY X1 DAY. 10 DAY SUPPLY FILLED 06-07-18 Past [id number] Hx Patient Social History Alcohol Use: Denies Use Recreational Drug Use: No Smoking Status: Never a Smoker Recent Foreign Travel: No Contact w/Someone Who Travel: No Recent Infectious Disease Expo: No Recent Hopitalizations: Yes Immunizations Up To Date PED Vaccines UTD: No Date of Pneumonia Vaccine: Mar 26, 2018 Date of Influenza Vaccine: Mar 26, 2018 Seasonal Allergies Seasonal Allergies: No Past Medical History Surgeries: Yes (R ROTATOR CUFF 12/2004) Respiratory: Yes Asthma, Pneumonia, Chronic Bronchitis Currently Using CPAP: No Currently Using BIPAP: No Cardiac: Yes (HYPERTENSION) Chronic Edema/Swelling, High Cholesterol, Hypertension Neurological: No Neuropathy Reproductive Disorders: Yes Female Reproductive Disorders: Denies Sexually Transmitted Disease: No HIV/AIDS: No Genitourinary: Yes Bladder Infection Gastrointestinal: No Musculoskeletal: No Endocrine: Yes Diabetes, Insulin dep HEENT: No Loss of Vision: Denies Hearing Impairment: Denies Cancer: No Did You Recieve Any Treatments: No Psychosocial: Yes Depression Integumentary: No Blood Disorders: No Adverse Reaction/Blood Tranf: No Family Medical History Diabetes mellitus 19 MOTHER, , Age:60 FH: breast cancer 19 MOTHER, , Age:60 (mets to liver) Diabetes Sepsis Event Evaluation Height, Weight, BMI Height: 5'7.00" Weight: 228lbs. 2.0oz. 103.223038te; 35.7 BMI Method:Stated Exam Exam Vital Signs Date Time Temp Pulse Resp B/P (MAP) Pulse Ox O2 Delivery O2 Flow Rate FiO2 06/11/18 06:52 94 Room Air 06/11/18 04:00 97.2 76 20 152/68 (96) 98 Room Air 06/11/18 02:55 90 Room Air 06/11/18 01:00 80 06/10/18 23:42 96.6 79 18 159/72 (101) 99 Room Air 06/10/18 23:23 90 Room Air 06/10/18 23:15 90 Room Air 06/10/18 21:21 76 06/10/18 20:00 98.2 76 18 130/71 (90) 94 Room Air 06/10/18 16:09 Room Air 06/10/18 16:00 98.1 82 18 124/72 (89) 82 Room Air 06/10/18 14:30 98.6 128/56 (80) Height & Weight Height: 5'7.00" Weight: 228lbs. 2.0oz. 103.864265fi; 35.7 BMI Method:Stated Results Lab Laboratory Tests 06/10/18 13:45 06/11/18 05:19 Assessment/Plan Assessment/Plan Asthma KAREN -VALERIE -MAGALY Solano DO Jun 11, 2018 07:54
[2018-06-11 08:00] VITALS: BP 135/68
--- NOTE | 2018-06-11 08:02 | Consultation-Cardiology ---
HPI-Cardiology Cardiology Consultation Date of Consultation 06/11/18 Date of Admission Time Seen by Provider: 07:58 Indication: chest pain HPI 62 years old lady with history of hypertension, hyperlipidemia and diabetes mellitus, rhonchi labs,, has been having wheezing shortness of breath and wheezing. Patient was admitted and started on antibiotic for acute exacerbation of COPD and pneumonia. She is reporting feeling pressure in her chest when she is unable to breathe and wheezing. Currently her chest pain is better. Denied any palpitation. Denied any syncope or near syncopal episodes still having some wheezing and cough Home Medications & Allergies Allergies: Coded Allergies: codeine (Verified Allergy, Unknown, PT HAS TAKEN HYDROCODONE W/O ISSUE, ) sulfamethoxazole (Verified Allergy, Unknown, 07/19/08) trimethoprim (Verified Allergy, Unknown, 07/19/08) Home Medication List Reviewed: Yes QPH-Liazxb-Bgeawl Hx Patient Social History Marital Status: Alcohol Use: Denies Use Recreational Drug Use: No Smoking Status: Never a Smoker Recent Foreign Travel: No Recent Infectious Disease Expo: No Recent Hopitalizations: Yes Physical Abuse Screen: No Sexual Abuse: No Immunizations Up To Date Date of Pneumonia Vaccine: Mar 26, 2018 Date of Influenza Vaccine: Mar 26, 2018 Past Medical History past medical history as described below Family Medical History Significant Family History: Diabetes Family History: Diabetes mellitus 19 MOTHER, , Age:60 FH: breast cancer 19 MOTHER, , Age:60 (mets to liver) Review of Systems Constitutional: see HPI, malaise EENTM: see HPI Respiratory: see HPI, cough, dyspnea on exertion; No hemoptysis, No orthopnea; phlegm; No short of breath, No stridor; wheezing; No other Cardiovascular: see HPI, chest pain, edema; No Hx of Intervention, No palpitations, No syncope, No vascular heart diseas, No other Gastrointestinal: no symptoms reported, see HPI Genitourinary: no symptoms reported, see HPI Musculoskeletal: no symptoms reported, see HPI Skin: no symptoms reported, see HPI Psychiatric/Neurological: No Symptoms Reported, See HPI Reviewed Test Results Reviewed Test Results Lab Laboratory Tests Test 06/10/18 13:45 06/10/18 13:52 06/10/18 15:42 06/10/18 21:33 Range/Units White Blood Count 8.0 4.3-11.0 10^3/uL Red Blood Count 4.46 4.35-5.85 10^6/uL Hemoglobin 11.9 11.5-16.0 G/DL Hematocrit 36 35-52 % Mean Corpuscular Volume 81 80-99 FL Mean Corpuscular Hemoglobin 27 25-34 PG Mean Corpuscular Hemoglobin Concent 33 32-36 G/DL Red Cell Distribution Width 13.0 10.0-14.5 % Platelet Count 216 130-400 10^3/uL Mean Platelet Volume 10.0 7.4-10.4 FL Neutrophils (%) (Auto) 90 H 42-75 % Lymphocytes (%) (Auto) 6 L 12-44 % Monocytes (%) (Auto) 4 0-12 % Eosinophils (%) (Auto) 0 0-10 % Basophils (%) (Auto) 0 0-10 % Neutrophils # (Auto) 7.2 1.8-7.8 X 10^3 Lymphocytes # (Auto) 0.5 L 1.0-4.0 X 10^3 Monocytes # (Auto) 0.3 0.0-1.0 X 10^3 Eosinophils # (Auto) 0.0 0.0-0.3 10^3/uL Basophils # (Auto) 0.0 0.0-0.1 10^3/uL Neutrophils % (Manual) 78 % Lymphocytes % (Manual) 6 % Monocytes % (Manual) 3 % Eosinophils % (Manual) 0 % Basophils % (Manual) 0 % Band Neutrophils 13 % Blood Morphology Comment NORMAL Sodium Level 141 135-145 MMOL/L Potassium Level 3.9 3.6-5.0 MMOL/L Chloride Level 107 98-107 MMOL/L Carbon Dioxide Level 21 21-32 MMOL/L Anion Gap 13 5-14 MMOL/L Blood Urea Nitrogen 25 H 7-18 MG/DL Creatinine 1.13 0.60-1.30 MG/DL Estimat Glomerular Filtration Rate 49 BUN/Creatinine Ratio 22 Glucose Level 259 H 70-105 MG/DL Lactic Acid Level 1.83 0.50-2.00 MMOL/L Calcium Level 9.0 8.5-10.1 MG/DL Corrected Calcium 8.9 8.5-10.1 MG/DL Total Bilirubin 0.7 0.1-1.0 MG/DL Aspartate Amino Transf (AST/SGOT) 17 5-34 U/L Alanine Aminotransferase (ALT/SGPT) 19 0-55 U/L Alkaline Phosphatase 76 40-136 U/L Troponin I < 0.30 <0.30 NG/ML Total Protein 6.5 6.4-8.2 GM/DL Albumin 4.1 3.2-4.5 GM/DL B-Type Natriuretic Peptide 152.1 H <100.0 PG/ML Glucometer 312 H 296 H 70-110 MG/DL Test 06/11/18 05:15 06/11/18 05:19 Range/Units Glucometer 264 H 70-110 MG/DL White Blood Count 6.1 4.3-11.0 10^3/uL Red Blood Count 4.32 L 4.35-5.85 10^6/uL Hemoglobin 11.6 11.5-16.0 G/DL Hematocrit 35 35-52 % Mean Corpuscular Volume 81 80-99 FL Mean Corpuscular Hemoglobin 27 25-34 PG Mean Corpuscular Hemoglobin Concent 33 32-36 G/DL Red Cell Distribution Width 12.6 10.0-14.5 % Platelet Count 209 130-400 10^3/uL Mean Platelet Volume 10.4 7.4-10.4 FL Neutrophils (%) (Auto) 89 H 42-75 % Lymphocytes (%) (Auto) 9 L 12-44 % Monocytes (%) (Auto) 1 0-12 % Eosinophils (%) (Auto) 0 0-10 % Basophils (%) (Auto) 0 0-10 % Neutrophils # (Auto) 5.4 1.8-7.8 X 10^3 Lymphocytes # (Auto) 0.6 L 1.0-4.0 X 10^3 Monocytes # (Auto) 0.1 0.0-1.0 X 10^3 Eosinophils # (Auto) 0.0 0.0-0.3 10^3/uL Basophils # (Auto) 0.0 0.0-0.1 10^3/uL Sodium Level 142 135-145 MMOL/L Potassium Level 3.9 3.6-5.0 MMOL/L Chloride Level 109 H 98-107 MMOL/L Carbon Dioxide Level 20 L 21-32 MMOL/L Anion Gap 13 5-14 MMOL/L Blood Urea Nitrogen 23 H 7-18 MG/DL Creatinine 1.01 0.60-1.30 MG/DL Estimat Glomerular Filtration Rate 56 BUN/Creatinine Ratio 23 Glucose Level 227 H 70-105 MG/DL Calcium Level 9.3 8.5-10.1 MG/DL Corrected Calcium 9.4 8.5-10.1 MG/DL Total Bilirubin 0.6 0.1-1.0 MG/DL Aspartate Amino Transf (AST/SGOT) 22 5-34 U/L Alanine Aminotransferase (ALT/SGPT) 23 0-55 U/L Alkaline Phosphatase 80 40-136 U/L Total Protein 6.5 6.4-8.2 GM/DL Albumin 3.9 3.2-4.5 GM/DL Physical Exam Vital Signs Vital Signs - First Documented 06/10/18 06/10/18 14:30 16:00 Temp 98.6 Pulse 82 Resp 18 B/P (MAP) 128/56 (80) Pulse Ox 82 O2 Delivery Room Air Capillary Refill : Height, Weight, BMI Height: 5'7.00" Weight: 228lbs. 2.0oz. 103.234577yz; 35.7 BMI Method:Stated General Appearance: No Apparent Distress, WD/WN Eyes: Bilateral Eye Normal Inspection, Bilateral Eye PERRL, Bilateral Eye EOMI HEENT: PERRL/EOMI, TMs Normal, Normal ENT Inspection, Pharynx Normal Neck: Full Range of Motion, Normal Inspection, Non Tender, Supple, Carotid Bruit Respiratory: Chest Non Tender, No Accessory Muscle Use, No Respiratory Distress , Crackles, Wheezing Cardiovascular: Regular Rate, Rhythm, No Edema, No Gallop, No JVD, No Murmur, Normal Peripheral Pulses Gastrointestinal: Normal Bowel Sounds, No Organomegaly, No Pulsatile Mass, Non Tender, Soft Back: Normal Inspection, No CVA Tenderness, No Vertebral Tenderness Extremity: Normal Capillary Refill, Normal Inspection, Normal Range of Motion, Non Tender, No Calf Tenderness, Pedal Edema Neurologic/Psychiatric: Alert, Oriented x3, No Motor/Sensory Deficits, Normal Mood/Affect Skin: Normal Color, Warm/Dry Lymphatic: No Adenopathy A/P-Cardiology Admission Diagnosis Pneumonia Bronchial asthma Chest pain Hypertension Assessment/Plan Pneumonia, acute excess cerebration of bronchial asthma, managed by primary care team, reporting some improvement. Chest pain nonspecific etiology, reporting tightness in her chest while she is having no worsening until asthma. EKG did not show any acute changes. Planning to evaluate stress test as an outpatient when clinically stable Hypertension, elevated, on steroid at this time which is affecting her blood pressure. Continue to monitor blood pressure Hyperlipidemia, continue to monitor lipids. Anemia, continue to monitor, followed and managed by primary care team Diabetes mellitus, followed and managed by primary care physician History of hypothyroidism, followed and managed by primary care physician Clinical Quality Measures DVT/VTE Risk/Contraindication: Risk Factor Score Per Nursin RFS Level Per Nursing on Admit: 3=High MARCO ANTONIO SEPULVEDA MD Jun 11, 2018 08:02
--- NOTE | 2018-06-11 08:40 | History & Physical-Hospitalist ---
History of Present Illness HPI/Chief Complaint CC: Wheezing HPI: This is a 62-year-old white female with chronic lung disease most recently in February experienced pneumonia with respiratory insufficiency requiring BiPAP who presented to my office with upper respiratory illness for 5 days was placed on prednisone from outside facility that she became worsened and required admission to the hospital due to the significant wheezing on exam. Chest x-ray revealed no infiltrate. Dr. Bains and Dr. Taylor has been consulted. Pulmonary rehabilitation discussed. Patient was empirically placed on IV steroids and IV antibiotics for bacterial bronchitis exacerbation of asthma. Patient is compliant with medication and generally takes Advair once a day but increase to twice a day when upper respiratory illness occurred. Source: patient Exam Limitations: no limitations Date Seen 06/11/18 Time Seen by a Provider: 08:45 Attending Physician Judi Cross DO PCP Judi Cross DO Referring Physician Date of Admission Jun 10, 2018 at 13:30 Home Medications & Allergies Home Medications Reviewed patient Home Medication Reconciliation performed by pharmacy medication reconciliations financial services technician and/or nursing. Patients Allergies have been reviewed. Allergies Allergies Coded Allergies codeine (Verified Allergy, Unknown, PT HAS TAKEN HYDROCODONE W/O ISSUE, ) sulfamethoxazole (Verified Allergy, Unknown, 07/19/08) trimethoprim (Verified Allergy, Unknown, 07/19/08) Past Zixthmz-Mlqeno-Mxvvti Hx Past Med/Social Hx: Reviewed Nursing Past Med/Soc Hx, Reviewed and Corrections made Patient Social History Marrital Status: Employed/Student: employed Alcohol Use: Denies Use Recreational Drug Use: No Smoking Status: Never a Smoker Physical Abuse Screen: No Sexual Abuse: No Recent Foreign Travel: No Contact w/other who traveled: No Recent Hopitalizations: Yes Recent Infectious Disease Expo: No Immunizations Up To Date Pediatric: No Date of Pneumonia Vaccine: Mar 26, 2018 Date of Influenza Vaccine: Mar 26, 2018 Seasonal Allergies Seasonal Allergies: No Past Medical History Respiratory: Asthma, COPD, Pneumonia, Sleep Apnea Currently Using CPAP: No Currently Using BIPAP: No Cardiac: Chronic Edema/Swelling, High Cholesterol, Hypertension Neurological: Neuropathy Reproductive: Yes Sexually Transmitted Disease: No HIV/AIDS: No Female Reproductive Disorders: Denies Genitourinary: Bladder Infection Endocrine: Diabetes, Insulin dep, Hypothyroidsim Loss of Vision: Denies Hearing Impairment: Denies Did You Recieve Any Treatments: No Psychosocial: Depression History of Blood Disorders: No Adverse Reaction to Blood Harris: No Family History Diabetes mellitus 19 MOTHER, , Age:60 FH: breast cancer 19 MOTHER, , Age:60 (mets to liver) Diabetes Review of Systems Constitutional: see HPI, weakness EENTM: no symptoms reported Respiratory: cough, dyspnea on exertion, short of breath, wheezing Gastrointestinal: no symptoms reported Genitourinary: no symptoms reported Musculoskeletal: no symptoms reported Skin: no symptoms reported Psychiatric/Neurological: No Symptoms Reported All Other Systems Reviewed Negative Unless Noted: Yes Physical Exam Physical Exam Vital Signs Vital Signs - First Documented 06/10/18 06/10/18 14:30 16:00 Temp 98.6 Pulse 82 Resp 18 B/P (MAP) 128/56 (80) Pulse Ox 82 O2 Delivery Room Air Capillary Refill : Height, Weight, BMI Height: 5'7.00" Weight: 228lbs. 2.0oz. 103.874303pg; 35.7 BMI Method:Stated General Appearance: WD/WN, Chronically ill, Mild Distress Eyes: Bilateral Eye Normal Inspection, Bilateral Eye PERRL HEENT: PERRL/EOMI, TMs Normal, Normal ENT Inspection, Pharynx Normal Neck: Full Range of Motion, Normal Inspection, Non Tender, Supple, Carotid Bruit Respiratory: Chest Non Tender, No Accessory Muscle Use, No Respiratory Distress , Crackles, Decreased Breath Sounds, Wheezing Cardiovascular: Regular Rate, Rhythm, No Edema, No Gallop, No JVD, No Murmur, Normal Peripheral Pulses Gastrointestinal: Normal Bowel Sounds, No Organomegaly, No Pulsatile Mass, Non Tender, Soft Back: Normal Inspection, No CVA Tenderness, No Vertebral Tenderness Extremity: Normal Capillary Refill, Normal Inspection, Normal Range of Motion, Non Tender, No Calf Tenderness, No Pedal Edema Neurologic/Psychiatric: Alert, Oriented x3, No Motor/Sensory Deficits, Normal Mood/Affect Skin: Normal Color, Warm/Dry Lymphatic: No Adenopathy Results Results/Procedures Labs Laboratory Tests 06/10/18 13:45 06/11/18 05:19 Patient resulted labs reviewed. Assessment/Plan Admission Diagnosis Assessment: Bacterial bronchitis acute Acute exacerbation of asthma Hypoxia Diabetes mellitus Hypertension malignant type PIPPA Plan: IV antibiotics IV steroids Monitor blood sugar Increased insulin Monitor labs Cardiology and pulmonology consultations are appreciated Admission Status: Inpatient Order (span 2 midnights) Reason for Inpatient Admission: Severe lung disease with exacerbation and hypoxia Diagnosis/Problems Diagnosis/Problems (1) Acute bronchitis, bacterial Status: Acute (2) Wheezing Status: Acute (3) Respiratory failure Status: Acute Qualifiers: Chronicity: acute Respiratory failure complication: unspecified whether with hypoxia or hypercapnia Qualified Codes: J96.00 - Acute respiratory failure, unspecified whether with hypoxia or hypercapnia (4) Asthma attack Status: Acute Qualifiers: Asthma severity: moderate Asthma persistence: persistent Qualified Codes : J45.41 - Moderate persistent asthma with (acute) exacerbation (5) Sleep apnea Status: Chronic Qualifiers: Sleep apnea type: unspecified type Qualified Codes: G47.30 - Sleep apnea, unspecified (6) Hypertension Status: Chronic Qualifiers: Hypertension type: essential hypertension Qualified Codes: I10 - Essential (primary) hypertension (7) Hypothyroidism Status: Chronic Qualifiers: Hypothyroidism type: acquired Qualified Codes: E03.9 - Hypothyroidism, unspecified (8) Hyperlipidemia Status: Chronic Qualifiers: Hyperlipidemia type: mixed hyperlipidemia Qualified Codes: E78.2 - Mixed hyperlipidemia (9) Diabetes Status: Chronic Qualifiers: Diabetes mellitus type: type 2 Diabetes mellitus longterm insulin use: with longterm use Diabetes mellitus complication status: without complication Qualified Codes: E11.9 - Type 2 diabetes mellitus without complications; Z79.4 - [facility] (current) use of insulin Clinical Quality Measures DVT/VTE Risk/Contraindication: Risk Factor Score Per Nursin RFS Level Per Nursing on Admit: 3=High JUDI CROSS DO Jun 11, 2018 08:40
[2018-06-11] MEDS ORDERED: RT-ADVAIR HFA 115/21 MCG PER PUFF IH SCH (08:49)
[2018-06-11] MEDS: ASPIRIN 81 MG CHEW (CHILDREN'S ASA) PO SCH (09:18)
[2018-06-11] MEDS: MONTELUKAST 10 MG (SINGULAIR) TAB PO SCH ×2 (09:18→21:26)
[2018-06-11] MEDS: IRBESARTAN 150 MG (AVAPRO) TAB PO SCH (09:18)
[2018-06-11] MEDS: hydrALAZINE (APRESOLINE) 25 MG TAB PO SCH ×3 (09:18→22:19)
[2018-06-11] MEDS: NEBIVOLOL 5 MG TAB (BYSTOLIC) PO SCH (09:18)
[2018-06-11] MEDS: RT-ALBUTEROL SULF 2.5 MG/3 ML PRE-MIX VIAL INH SCH ×4 (11:50→22:40)
[2018-06-11 12:00] VITALS: BP 145/76
[2018-06-11] MEDS ORDERED: PATIENT MAY USE OWN MED,SINGLE MED PO SCH (12:00)
[2018-06-11] MEDS: FLUTICASONE NASAL SPRAY (FLONASE) 16 GM BTL NS SCH (14:00)
[2018-06-11] MEDS: MINOXIDIL 2.5 MG PO SCH (14:00)
[2018-06-11] MEDS: ENOXAPARIN 40 MG/0.4 ML (LOVENOX) SYR SC SCH (15:12)
[2018-06-11 16:26] VITALS: BP 134/75
[2018-06-11 19:06] VITALS: BP 140/75
[2018-06-11] MEDS: RT-ADVAIR HFA 115/21 MCG PER PUFF IH SCH ×2 (19:43→19:45)
[2018-06-11] MEDS: inSUlin DETERMIR 1 UNIT/0.01 ML (LEVEMIR) CHARGE PER UNIT SQ SCH (21:26)
[2018-06-12] VITALS (7 sets, daily range): BP systolic 111–140; BP diastolic 56–84
[2018-06-12] MEDS: RT-ALBUTEROL SULF 2.5 MG/3 ML PRE-MIX VIAL INH SCH ×6 (02:53→21:49)
[2018-06-12] MEDS: LEVOTHYROXINE 75 MCG (LEVOTHROID) TABLET PO SCH (04:41)
[2018-06-12] MEDS: PIPERACILLIN SODIUM/TAZOBACTAM 4.5 GM in NS (IVPB) 100 ML IV SCH (04:42)
[2018-06-12] MEDS: hydrALAZINE (APRESOLINE) 25 MG TAB PO SCH ×3 (06:05→21:31)
[2018-06-12] MEDS: methylPREDNISolone 40 MG/ML (Solu-MEDROL) VIAL IV SCH (06:05)
[2018-06-12] MEDS: inSUlin ASPART (NovoLOG) 1 UNIT/0.01 ML (CHARGE PER UNIT) SC SCH ×7 (06:06→21:33)
[2018-06-12 06:16] LABS: BASOPHILS % (AUTO) 0 % (0-10); EOSINOPHILS % (AUTO) 0 % (0-10); HEMATOCRIT 34 % (35-52); HEMOGLOBIN 11.2 G/DL (11.5-16.0); LYMPHOCYTES # (AUTO) 1.1 X 10^3 (1.0-4.0); LYMPHOCYTES % (AUTO) 12 % (12-44); MEAN CORPUSCULAR HEMOGLOBIN 26 PG (25-34); MEAN CORPUSCULAR HGB CONC 33 G/DL (32-36); MEAN CORPUSCULAR VOLUME 80 FL (80-99); MEAN PLATELET VOLUME 10.6 FL (7.4-10.4); MONOCYTES # (AUTO) 0.2 X 10^3 (0.0-1.0); MONOCYTES % (AUTO) 2 % (0-12); NEUTROPHILS # (AUTO) 7.6 X 10^3 (1.8-7.8); NEUTROPHILS % (AUTO) 86 % (42-75); PLATELET COUNT 219 10^3/uL (130-400); RED BLOOD COUNT 4.25 10^6/uL (4.35-5.85); RED CELL DISTRIBUTION WIDTH 12.3 % (10.0-14.5); WHITE BLOOD COUNT 8.9 10^3/uL (4.3-11.0)
[2018-06-12 06:41] LABS: BILIRUBIN,TOTAL 0.4 MG/DL (0.1-1.0); CALCIUM 8.8 MG/DL (8.5-10.1); CREATININE SERUM 1.06 MG/DL (0.60-1.30); POTASSIUM 3.7 MMOL/L (3.6-5.0)
[2018-06-12 06:42] LABS: ALBUMIN 3.7 GM/DL (3.2-4.5); TOTAL PROTEIN 5.9 GM/DL (6.4-8.2)
[2018-06-12] MEDS: RT-BUDESONIDE NEBS 0.5 MG/2ML (PULMICORT) AMP INH SCH ×2 (07:22→18:58)
[2018-06-12] MEDS: RT-ADVAIR HFA 115/21 MCG PER PUFF IH SCH ×2 (07:22→18:59)
[2018-06-12] MEDS: NEBIVOLOL 5 MG TAB (BYSTOLIC) PO SCH (08:38)
[2018-06-12] MEDS: FLUTICASONE NASAL SPRAY (FLONASE) 16 GM BTL NS SCH (08:38)
[2018-06-12] MEDS: ASPIRIN 81 MG CHEW (CHILDREN'S ASA) PO SCH (08:38)
[2018-06-12] MEDS: IRBESARTAN 150 MG (AVAPRO) TAB PO SCH (08:38)
[2018-06-12] MEDS: MINOXIDIL 2.5 MG PO SCH (08:39)
[2018-06-12] MEDS ORDERED: FUROSEMIDE 40 MG (LASIX) TAB PO SCH (09:00)
[2018-06-12] MEDS ORDERED: CATHETER FLUSH 10 ML SYR IV PRN (10:15)
--- NOTE | 2018-06-12 10:34 | Progress Note-Hospitalist ---
Subjective HPI/CC On Admission Date Seen by Provider: Jun 12, 2018 Time Seen by Provider: 09:30 CC: Wheezing HPI: This is a 62-year-old white female with chronic lung disease most recently in February experienced pneumonia with respiratory insufficiency requiring BiPAP who presented to my office with upper respiratory illness for 5 days was placed on prednisone from outside facility that she became worsened and required admission to the hospital due to the significant wheezing on exam. Chest x-ray revealed no infiltrate. Dr. Bains and Dr. Taylor has been consulted. Pulmonary rehabilitation discussed. Patient was empirically placed on IV steroids and IV antibiotics for bacterial bronchitis exacerbation of asthma. Patient is compliant with medication and generally takes Advair once a day but increase to twice a day when upper respiratory illness occurred. Subjective/Events-last exam Patient doing much better Breathing better We'll hep-locked IV fluid Full walk with her in the halls today Cannot tolerate sleep apnea machine and she did discuss that with Dr. Bains IV steroids maintained Blood sugars were controlled with higher doses of insulin due to steroids Bowel movement regimen will be increased Review of Systems General: Fatigue Pulmonary: Dyspnea Gastrointestinal: Constipation Focused Exam Lactate Level 06/10/18 13:45: Lactic Acid Level 1.83 Objective Exam Vital Signs Vital Signs Date Time Temp Pulse Resp B/P (MAP) Pulse Ox O2 Delivery O2 Flow Rate FiO2 06/12/18 08:20 Room Air 06/12/18 08:00 97.7 81 20 126/71 (89) 94 Capillary Refill : General Appearance: No Apparent Distress, WD/WN, Chronically ill, Obese Respiratory: Chest Non Tender, No Accessory Muscle Use, No Respiratory Distress , Crackles, Decreased Breath Sounds, Wheezing Cardiovascular: Regular Rate, Rhythm, No Edema, No Gallop, No JVD, No Murmur, Normal Peripheral Pulses Neurologic/Psychiatric: Alert, Oriented x3, No Motor/Sensory Deficits, Normal Mood/Affect Results/Procedures Lab Laboratory Tests 06/12/18 05:15 Patient resulted labs reviewed. Assessment/Plan Assessment and Plan Assess & Plan/Chief Complaint Assessment: Bacterial bronchitis acute Acute exacerbation of asthma Hypoxia Diabetes mellitus OOC due to steroids Hypertension malignant type PIPPA intolerant to CPAP Plan: IV steroids IV abx Monitor closely Ambulate HLIVF Diagnosis/Problems Diagnosis/Problems (1) Acute bronchitis, bacterial Status: Acute (2) Wheezing Status: Acute (3) Respiratory failure Status: Resolved Qualifiers: Chronicity: acute Respiratory failure complication: unspecified whether with hypoxia or hypercapnia Qualified Codes: J96.00 - Acute respiratory failure, unspecified whether with hypoxia or hypercapnia Resolution Date/Time: 06/12/18 @ 11:48 (4) Asthma attack Status: Resolved Qualifiers: Asthma severity: moderate Asthma persistence: persistent Qualified Codes : J45.41 - Moderate persistent asthma with (acute) exacerbation Resolution Date/Time: 06/12/18 @ 11:48 (5) Sleep apnea Status: Chronic Qualifiers: Sleep apnea type: unspecified type Qualified Codes: G47.30 - Sleep apnea, unspecified (6) Hypertension Status: Chronic Qualifiers: Hypertension type: essential hypertension Qualified Codes: I10 - Essential (primary) hypertension (7) Hypothyroidism Status: Chronic Qualifiers: Hypothyroidism type: acquired Qualified Codes: E03.9 - Hypothyroidism, unspecified (8) Hyperlipidemia Status: Chronic Qualifiers: Hyperlipidemia type: mixed hyperlipidemia Qualified Codes: E78.2 - Mixed hyperlipidemia (9) Diabetes Status: Chronic Qualifiers: Diabetes mellitus type: type 2 Diabetes mellitus detention insulin use: with detention use Diabetes mellitus complication status: without complication Qualified Codes: E11.9 - Type 2 diabetes mellitus without complications; Z79.4 - halfway (current) use of insulin Clinical Quality Measures DVT/VTE Risk/Contraindication: Risk Factor Score Per Nursin RFS Level Per Nursing on Admit: 3=High CATALINA CROSS DO Jun 12, 2018 10:34
--- NOTE | 2018-06-12 10:43 | Pulmonary Progress Note ---
Subjective Time Seen by a Provider: 10:42 Subjective/Events-last exam Pt appears to be doing better. She is on RA. Sepsis Event Evaluation Height, Weight, BMI Height: 5'7.00" Weight: 235lbs. 6.0oz. 106.611809ah; 35.7 BMI Method:Stated Focused Exam Lactate Level 06/10/18 13:45: Lactic Acid Level 1.83 Exam Exam Vital Signs Date Time Temp Pulse Resp B/P (MAP) Pulse Ox O2 Delivery O2 Flow Rate FiO2 06/12/18 08:20 Room Air 06/12/18 08:00 97.7 81 20 126/71 (89) 94 Room Air 06/12/18 07:27 99 06/12/18 07:20 96 Room Air 06/12/18 07:02 72 06/12/18 04:15 98.6 84 20 122/66 (84) 95 Room Air 06/12/18 02:53 93 Room Air 06/12/18 01:00 90 06/12/18 00:05 98.6 94 20 111/56 (74) 93 Room Air 06/11/18 22:41 94 Room Air 06/11/18 20:15 93 Room Air 06/11/18 20:09 Room Air 06/11/18 19:45 98 Room Air 06/11/18 19:06 98.0 84 16 140/75 (96) 98 Room Air 06/11/18 19:00 76 06/11/18 16:26 98.9 85 16 134/75 (94) 96 Room Air 06/11/18 15:02 94 Room Air 06/11/18 12:51 89 06/11/18 12:00 97.9 79 18 145/76 (99) 92 Room Air 06/11/18 11:51 95 Room Air I & O 06/12/18 07:00 Intake Total 2330 ml Output Total 2150 ml Balance 180 ml Height & Weight Height: 5'7.00" Weight: 235lbs. 6.0oz. 106.519112sh; 35.7 BMI Method:Stated General Appearance: WD/WN, Chronically ill, Mild Distress HEENT: PERRL/EOMI, TMs Normal, Normal ENT Inspection, Pharynx Normal Neck: Full Range of Motion, Normal Inspection, Non Tender, Supple, Carotid Bruit Respiratory: Chest Non Tender, No Accessory Muscle Use, No Respiratory Distress , Crackles, Decreased Breath Sounds, Wheezing Cardiovascular: Regular Rate, Rhythm, No Edema, No Gallop, No JVD, No Murmur, Normal Peripheral Pulses Extremity: Normal Capillary Refill, Normal Inspection, Normal Range of Motion, Non Tender, No Calf Tenderness, No Pedal Edema Neurologic/Psychiatric: Alert, Oriented x3, No Motor/Sensory Deficits, Normal Mood/Affect Skin: Normal Color, Warm/Dry Lymphatic: No Adenopathy Results Lab Laboratory Tests 06/10/18 13:45 06/11/18 05:19 06/12/18 05:15 Assessment/Plan Assessment/Plan Asthma AE - doubt pneumonia -D/C zosyn -SVNS -Solumedrol-- change to prednisone taper Atelectasis -PT will need repeat out patient CXR in 6-8 wks PIPPA -Home CPAP HTN, Hypothyroid MAGALY DE DIOS DO Jun 12, 2018 10:43
[2018-06-12] MEDS: POLYETHYLENE GLYCOL 17 GM (MIRALAX) PACK PO SCH ×2 (11:50→20:07)
[2018-06-12] MEDS: SENNA W/DOCUSATE (SENOKOT S) TABLET PO SCH ×2 (11:51→20:07)
[2018-06-12] MEDS: predniSONE 10 MG TAB PO SCH (11:51)
--- NOTE | 2018-06-12 12:18 | Cardiology Progress Note ---
Subjective Date Seen by Provider: Jun 12, 2018 Time Seen by Provider: 12:17 Subjective/Events-last exam patient was seen at bedside, feeling better, still having some wheezing. Denied any chest pain today. Review of Systems General: No Chills, No Night Sweats, No Fatigue, No Malaise, No Appetite, No Other HEENT: No Head Aches, No Visual Changes, No Eye Pain, No Ear Pain, No Dysphasia , No Sinus Congestion, No Post Nasal Drip, No Sore Throat, No Other Pulmonary: No Dyspnea, No Cough, No Pleuritic Chest Pain, No Other Cardiovascular: No: Chest Pain, Palpitations, Orthopnea, Paroxysmal Noc. Dyspnea, Edema, Lt Headedness, Other Focused Exam Lactate Level 06/10/18 13:45: Lactic Acid Level 1.83 Objective-Cardiology Exam Last Set of Vital Signs Vital Signs 06/12/18 06/12/18 08:00 08:20 Temp 97.7 Pulse 81 Resp 20 B/P (MAP) 126/71 (89) Pulse Ox 94 O2 Delivery Room Air Capillary Refill : I&O Intake and Output 06/12/18 00:00 Intake Total 2430 ml Output Total 1750 ml Balance 680 ml Intake Oral 2430 ml Output Urine Total 1750 ml # Voids 3 General: Alert, Oriented X3, Cooperative HEENT: Atraumatic, PERRLA Neck: Supple, No JVD, No Thyromegaly Lungs: Normal Air Movement, Other (expiratory wheezing) Heart: Regular Rate, Normal S1, Normal S2, No Murmurs Abdomen: Normal Bowel Sounds, Soft, No Tenderness, No Hepatosplenomegaly, No Masses Extremities: No Clubbing, No Cyanosis, No Edema, Normal Pulses, No Tenderness/ Swelling Skin: No Rashes, No Breakdown, No Significant Lesion Neuro: Normal Gait, Normal Speech, Strength at 5/5 X4 Ext, Normal Tone, Sensation Intact Psych/Mental Status: Mental Status NL, Mood NL Results Lab Laboratory Tests 06/12/18 05:15 A/P-Cardiology Admission Diagnosis Pneumonia Bronchial asthma Chest pain Hypertension Assessment/Plan Pneumonia, acute exacerbation of bronchial asthma, managed by primary care team , reporting some improvement. Chest pain nonspecific etiology, reporting tightness in her chest while she is having no worsening until asthma. EKG did not show any acute changes. Planning to evaluate stress test as an outpatient when clinically stable Hypertension, elevated, on steroid at this time which is affecting her blood pressure. Continue to monitor blood pressure Hyperlipidemia, continue to monitor lipids. Anemia, continue to monitor, followed and managed by primary care team Diabetes mellitus, followed and managed by primary care physician History of hypothyroidism, followed and managed by primary care physician Clinical Quality Measures DVT/VTE Risk/Contraindication: Risk Factor Score Per Nursin RFS Level Per Nursing on Admit: 3=High MARCO ANTONIO SEPULVEDA MD Jun 12, 2018 12:18
[2018-06-12] MEDS: CATHETER FLUSH 10 ML SYR IV SCH ×2 (14:15→21:33)
[2018-06-12] MEDS ORDERED: RT-ALBUTEROL SULF 2.5 MG/3 ML PRE-MIX VIAL INH PRN (15:00)
[2018-06-12] MEDS: ENOXAPARIN 40 MG/0.4 ML (LOVENOX) SYR SC SCH (16:36)
[2018-06-12] MEDS ORDERED: SIMvastatin 10 MG (ZOCOR) TAB PO SCH (21:00)
[2018-06-12] MEDS: MONTELUKAST 10 MG (SINGULAIR) TAB PO SCH (21:31)
[2018-06-12] MEDS: inSUlin DETERMIR 1 UNIT/0.01 ML (LEVEMIR) CHARGE PER UNIT SQ SCH (21:32)
[2018-06-13] VITALS: BP 125/65
[2018-06-13] MEDS: RT-ALBUTEROL SULF 2.5 MG/3 ML PRE-MIX VIAL INH SCH ×3 (01:23→10:18)
[2018-06-13 04:00] VITALS: BP 108/61
[2018-06-13] MEDS: LEVOTHYROXINE 75 MCG (LEVOTHROID) TABLET PO SCH (04:07)
[2018-06-13 06:14] LABS: BASOPHILS % (AUTO) 0 % (0-10); EOSINOPHILS % (AUTO) 0 % (0-10); HEMATOCRIT 32 % (35-52); LYMPHOCYTES # (AUTO) 1.7 X 10^3 (1.0-4.0); LYMPHOCYTES % (AUTO) 17 % (12-44); MEAN CORPUSCULAR HEMOGLOBIN 28 PG (25-34); MEAN CORPUSCULAR HGB CONC 34 G/DL (32-36); MEAN CORPUSCULAR VOLUME 80 FL (80-99); MEAN PLATELET VOLUME 10.5 FL (7.4-10.4); MONOCYTES # (AUTO) 0.6 X 10^3 (0.0-1.0); MONOCYTES % (AUTO) 6 % (0-12); NEUTROPHILS # (AUTO) 7.7 X 10^3 (1.8-7.8); NEUTROPHILS % (AUTO) 77 % (42-75); PLATELET COUNT 213 10^3/uL (130-400); RED CELL DISTRIBUTION WIDTH 12.3 % (10.0-14.5)
[2018-06-13 06:33] LABS: ALBUMIN 3.5 GM/DL (3.2-4.5); BILIRUBIN,TOTAL 0.3 MG/DL (0.1-1.0); CALCIUM 8.7 MG/DL (8.5-10.1); CREATININE SERUM 1.11 MG/DL (0.60-1.30); POTASSIUM 3.1 MMOL/L (3.6-5.0); TOTAL PROTEIN 5.7 GM/DL (6.4-8.2)
[2018-06-13] MEDS: RT-BUDESONIDE NEBS 0.5 MG/2ML (PULMICORT) AMP INH SCH (06:34)
[2018-06-13] MEDS: RT-ADVAIR HFA 115/21 MCG PER PUFF IH SCH (06:44)
[2018-06-13] MEDS: inSUlin ASPART (NovoLOG) 1 UNIT/0.01 ML (CHARGE PER UNIT) SC SCH ×4 (06:47→11:45)
[2018-06-13] MEDS: predniSONE 10 MG TAB PO SCH (06:49)
[2018-06-13] MEDS: hydrALAZINE (APRESOLINE) 25 MG TAB PO SCH (06:49)
[2018-06-13] MEDS: CATHETER FLUSH 10 ML SYR IV SCH (06:50)
[2018-06-13 06:52] VITALS: BP 138/68
[2018-06-13 07:48] VITALS: BP 133/62
--- NOTE | 2018-06-13 08:07 | Pulmonary Progress Note ---
Subjective Time Seen by a Provider: 08:05 Subjective/Events-last exam No complications noted. Sepsis Event Evaluation Height, Weight, BMI Height: 5'7.00" Weight: 239lbs. 6.0oz. [id number]; 35.7 BMI Method:Stated Focused Exam Lactate Level 06/10/18 13:45: Lactic Acid Level 1.83 Exam Exam Vital Signs Date Time Temp Pulse Resp B/P (MAP) Pulse Ox O2 Delivery O2 Flow Rate FiO2 06/13/18 07:54 69 93 21 06/13/18 07:48 98.6 77 18 133/62 (85) 97 Room Air 06/13/18 06:52 78 20 138/68 (91) 96 06/13/18 06:37 93 Room Air 06/13/18 04:00 97.5 77 20 108/61 (77) 93 NIV CPAP 06/13/18 01:23 96 Room Air 06/13/18 00:00 96.8 80 18 125/65 (85) 93 NIV CPAP 06/12/18 21:49 97 Room Air 06/12/18 21:29 84 20 140/84 (102) 95 Room Air 06/12/18 20:00 98.4 84 20 131/68 (89) 93 Room Air 06/12/18 20:00 Room Air 06/12/18 19:11 100 Room Air 06/12/18 19:04 99 Room Air 06/12/18 18:59 98 Room Air 06/12/18 16:00 96.7 81 20 122/64 (83) 94 Room Air 06/12/18 14:47 91 Room Air 06/12/18 12:00 98.2 82 20 111/65 (80) 94 Room Air 06/12/18 08:20 Room Air I & O 06/13/18 07:00 Intake Total 3880 ml Output Total 1850 ml Balance 2030 ml Height & Weight Height: 5'7.00" Weight: 239lbs. 6.0oz. 108.569819uj; 35.7 BMI Method:Stated General Appearance: WD/WN, Chronically ill, Mild Distress HEENT: PERRL/EOMI, TMs Normal, Normal ENT Inspection, Pharynx Normal Neck: Full Range of Motion, Normal Inspection, Non Tender, Supple, Carotid Bruit Respiratory: Chest Non Tender, No Accessory Muscle Use, No Respiratory Distress , Crackles, Decreased Breath Sounds, Wheezing Cardiovascular: Regular Rate, Rhythm, No Edema, No Gallop, No JVD, No Murmur, Normal Peripheral Pulses Extremity: Normal Capillary Refill, Normal Inspection, Normal Range of Motion, Non Tender, No Calf Tenderness, No Pedal Edema Neurologic/Psychiatric: Alert, Oriented x3, No Motor/Sensory Deficits, Normal Mood/Affect Skin: Normal Color, Warm/Dry Lymphatic: No Adenopathy Results Lab Laboratory Tests 06/12/18 05:15 06/13/18 05:35 Assessment/Plan Assessment/Plan Asthma AE - doubt pneumonia -D/C zosyn -SVNS - prednisone taper -Pt is on RA Hypokalemia -WIll give Kdur 60meq X 1 Atelectasis -PT will need repeat out patient CXR in 6-8 wks PIPPA -Home CPAP HTN, Hypothyroid MAGALY DE DIOS DO Jun 13, 2018 08:07
[2018-06-13] MEDS ORDERED: KCL 10 MEQ TAB (MICRO K) PO NR (08:14)
--- NOTE | 2018-06-13 09:35 | Cardiology Progress Note ---
Subjective Date Seen by Provider: Jun 13, 2018 Time Seen by Provider: 09:33 Subjective/Events-last exam patient is sitting in a chair, still having some wheezing and shortness of breath, having worsening edema Review of Systems General: No Chills, No Night Sweats, No Fatigue, No Malaise, No Appetite, No Other HEENT: No Head Aches, No Visual Changes, No Eye Pain, No Ear Pain, No Dysphasia , No Sinus Congestion, No Post Nasal Drip, No Sore Throat, No Other Pulmonary: Dyspnea; No Cough, No Pleuritic Chest Pain, No Other Cardiovascular: Edema; No: Chest Pain, Palpitations, Orthopnea, Paroxysmal Noc. Dyspnea, Lt Headedness, Other Focused Exam Lactate Level 06/10/18 13:45: Lactic Acid Level 1.83 Objective-Cardiology Exam Last Set of Vital Signs Vital Signs 06/13/18 06/13/18 07:48 07:54 Temp 98.6 Pulse 69 Resp 18 B/P (MAP) 133/62 (85) Pulse Ox 93 O2 Delivery Room Air FiO2 21 Capillary Refill : I&O Intake and Output 06/13/18 00:00 Intake Total 4030 ml Output Total 3050 ml Balance 980 ml Intake Oral 3130 ml IV Total 900 ml Output Urine Total 3050 ml # Bowel Movements 2 General: Alert, Oriented X3, Cooperative HEENT: Atraumatic, PERRLA Neck: Supple, No JVD, No Thyromegaly Lungs: Normal Air Movement, Other (expiratory wheezing) Heart: Regular Rate, Normal S1, Normal S2, No Murmurs Abdomen: Normal Bowel Sounds, Soft, No Tenderness, No Hepatosplenomegaly, No Masses Extremities: No Clubbing, No Cyanosis, Normal Pulses, No Tenderness/Swelling, Other (+2 edema) Skin: No Rashes, No Breakdown, No Significant Lesion Neuro: Normal Gait, Normal Speech, Strength at 5/5 X4 Ext, Normal Tone, Sensation Intact Psych/Mental Status: Mental Status NL, Mood NL Results Lab Laboratory Tests 06/13/18 05:35 A/P-Cardiology Admission Diagnosis Pneumonia Bronchial asthma Chest pain Hypertension Assessment/Plan Pneumonia, acute exacerbation of bronchial asthma, managed by primary care team , reporting some improvement. Chest pain nonspecific etiology, reporting tightness in her chest while she is having no worsening until asthma. EKG did not show any acute changes. Planning to evaluate stress test as an outpatient when clinically stable Hypertension, continue on current medication monitor blood pressure Peripheral edema, I will give additional dose of IV Lasix today and change her oral Lasix to daily instead of 3 times a week. Monitor tolerance and response Hypokalemia, replace and monitor Hyperlipidemia, continue to monitor lipids. Anemia, continue to monitor, followed and managed by primary care team Diabetes mellitus, followed and managed by primary care physician History of hypothyroidism, followed and managed by primary care physician Clinical Quality Measures DVT/VTE Risk/Contraindication: Risk Factor Score Per Nursin RFS Level Per Nursing on Admit: 3=High MARCO ANTONIO SEPULVEDA MD Jun 13, 2018 09:35
[2018-06-13] MEDS ORDERED: FUROSEMIDE 40 MG/4 ML INJ (LASIX) IVP NR (09:52)
--- NOTE | 2018-06-13 10:13 | Progress Note-Hospitalist ---
Progress Note Progress Notes/Assess & Plan Date Seen 06/13/18 Time Seen by Provider: 10:10 Assessment & Plan The patient is a 62-year-old white female whom I have known for more than 30 years. She was admitted 3 days ago with an exacerbation of asthma. She has improved on a daily basis. She is currently on oral medications and inhalers. She has been cleared by Dr. Bains for discharge. She reports that she is much better but not yet to baseline. Physical exam: She is not tachypneic. She speaks in full sentences. SaO2 is good on room air. Lungs show harsh end-expiratory tracheal sounds. CV is regular without tachycardia. Extremities show no pedal edema. Impression: Asthma exacerbation. Plan: Discharge. SEE discharge sequence for medications and activities Focused Exam Lactate Level 06/10/18 13:45: Lactic Acid Level 1.83 YELITZA EPÑA MD Jun 13, 2018 10:13
[2018-06-13] MEDS: IRBESARTAN 150 MG (AVAPRO) TAB PO SCH (10:20)
[2018-06-13] MEDS ORDERED: PRD10T PO (10:20)
[2018-06-13] MEDS: ASPIRIN 81 MG CHEW (CHILDREN'S ASA) PO SCH (10:20)
[2018-06-13] MEDS: NEBIVOLOL 5 MG TAB (BYSTOLIC) PO SCH (10:20)
[2018-06-13] MEDS: FLUTICASONE NASAL SPRAY (FLONASE) 16 GM BTL NS SCH (10:21)
[2018-06-13] MEDS: MINOXIDIL 2.5 MG PO SCH (10:22)
--- NOTE | 2018-06-13 10:22 | Discharge Instructions ---
Discharge Instructions Discharge Medications New, Converted or Re-Newed RX: Transmitted to Pharmacy Patient Instructions Patient Instructions: Medications as listed on the discharge sequence. Avoid drawing in extremely cold air 3 her mouth and nose. If you must go out please use a mask or scarf to protect your self Return to [facility]: If harsh recurrence of symptoms Activity & Diet Discharge Diet: ADA Diet Activity as Tolerated: Yes YELITZA PEÑA MD Jun 13, 2018 10:22
[2018-06-13] MEDS: POLYETHYLENE GLYCOL 17 GM (MIRALAX) PACK PO SCH (10:40)
[2018-06-13] MEDS: SENNA W/DOCUSATE (SENOKOT S) TABLET PO SCH (10:40)
--- NOTE | 2018-06-13 10:51 | Discharge Summary-Hospitalist ---
Diagnosis/Chief Complaint Date of Admission Jun 10, 2018 at 13:30 Date of Discharge Discharge Date: Jun 13, 2018 Admission Diagnosis Assessment: Bacterial bronchitis acute Acute exacerbation of asthma Hypoxia Diabetes mellitus Hypertension malignant type PIPPA Plan: IV antibiotics IV steroids Monitor blood sugar Increased insulin Monitor labs Cardiology and pulmonology consultations are appreciated Discharge Diagnosis (1) Acute bronchitis, bacterial Status: Resolved (2) Wheezing Status: Acute (3) Respiratory failure Status: Resolved (4) Asthma attack Status: Resolved (5) Sleep apnea Status: Chronic (6) Hypertension Status: Chronic (7) Hypothyroidism Status: Chronic (8) Hyperlipidemia Status: Chronic (9) Diabetes Status: Chronic Discharge Summary Discharge Physical Exam Allergies: Coded Allergies: codeine (Verified Allergy, Unknown, PT HAS TAKEN HYDROCODONE W/O ISSUE, ) sulfamethoxazole (Verified Allergy, Unknown, 07/19/08) trimethoprim (Verified Allergy, Unknown, 07/19/08) Vitals & I&Os Vital Signs Date Time Temp Pulse Resp B/P (MAP) Pulse Ox O2 Delivery O2 Flow Rate FiO2 06/13/18 13:05 06/13/18 08:30 Room Air 06/13/18 07:54 69 93 21 06/13/18 07:48 98.6 18 General Appearance: No Apparent Distress, WD/WN, Chronically ill Respiratory: Chest Non Tender, Lungs Clear, Normal Breath Sounds, No Accessory Muscle Use, No Respiratory Distress Cardiovascular: Regular Rate, Rhythm, No Edema, No Gallop, No JVD, No Murmur, Normal Peripheral Pulses Neurologic/Psychiatric: Alert, Oriented x3, No Motor/Sensory Deficits, Normal Mood/Affect Hospital Course Hospital course: Patient had a standard hospital course she was placed on IV steroids along with IV antibiotics chest x-ray pancultured and Pulmonology and cardiology were consulted. Patient has severe comorbidities requiring frequent hospital stays and difficulty with compliance with sleep apnea treatment at home. Home medication was restarted along with insulin and required additional insulin due to hyperglycemia from steroids. Antibiotics were discontinued since no evidence of any bacterial infection she was discharged home in improved condition with steroid taper dose. Overall prognosis poor to guarded and will evaluate for pulmonary rehabilitation to improve lung function. Labs (last 24 hrs) Laboratory Tests 06/12/18 16:17: Glucometer 271H 06/12/18 21:19: Glucometer 363H 06/13/18 05:35: White Blood Count 10.0, Red Blood Count 4.00L, Hemoglobin 11.0L, Hematocrit 32L , Mean Corpuscular Volume 80, Mean Corpuscular Hemoglobin 28, Mean Corpuscular Hemoglobin Concent 34, Red Cell Distribution Width 12.3, Platelet Count 213, Mean Platelet Volume 10.5H, Neutrophils (%) (Auto) 77H, Lymphocytes (%) (Auto) 17, Monocytes (%) (Auto) 6, Eosinophils (%) (Auto) 0, Basophils (%) (Auto) 0, Neutrophils # (Auto) 7.7, Lymphocytes # (Auto) 1.7, Monocytes # (Auto) 0.6, Eosinophils # (Auto) 0.0, Basophils # (Auto) 0.0, Sodium Level 142, Potassium Level 3.1L, Chloride Level 110H, Carbon Dioxide Level 23, Anion Gap 9, Blood Urea Nitrogen 25H, Creatinine 1.11, Estimat Glomerular Filtration Rate 50, BUN/ Creatinine Ratio 23, Glucose Level 148H, Calcium Level 8.7, Corrected Calcium 9.1, Total Bilirubin 0.3, Aspartate Amino Transf (AST/SGOT) 22, Alanine Aminotransferase (ALT/SGPT) 34, Alkaline Phosphatase 69, Total Protein 5.7L, Albumin 3.5 06/13/18 05:58: Glucometer 148H 06/13/18 10:50: Glucometer 230H Microbiology 06/10/18 Blood Culture - Preliminary, Resulted No growth Patient resulted labs reviewed. Pending Labs Laboratory Tests 06/13/18 10:50: Glucometer 230 Discussion & Recommendations Discharge Planning: <30 minutes discharge planning Discharge Home Medications: Active Scripts Active Prednisone 10 Mg Tab 10 Mg PO UD 10 Days TAKE 4 TABS DAILY X 4 DAYS THEN 3 TABS X3 DAYS, THEN 2 TABS X2 DAYS, THEN 1 TAB DAILY X1 DAY. Reported Fluticasone Propionate 16 Gm [place].susp 1 [place] NS DAILY Furosemide 40 Mg Tablet 40 Mg PO MOWEFR Minoxidil 2.5 Mg Tablet 5 Mg PO DAILY TAKES 2 (2.5MG) TABLETS Singulair (Montelukast Sodium) 10 Mg Tablet 10 Mg PO HS Hydralazine HCl 25 Mg Tablet 25 Mg PO TID Levalbuterol Concentrate (Levalbuterol HCl) 1.25 Mg/0.5 Ml Vial.neb 1.25 Mg NEB Q4H Irbesartan 300 Mg Tablet 300 Mg PO DAILY Bystolic (Nebivolol HCl) 5 Mg Tablet 5 Mg PO DAILY Aspirin 81 Mg Tab.chew 81 Mg PO DAILY Advair 250-50 Diskus (Fluticasone/Salmeterol) 1 Each Blst.w.dev 1 Puff IH BID Levemir Flextouch (Insulin Detemir) 100 Unit/1 Ml Insuln.pen 20-38 Units SQ HS Pravastatin Sodium 10 Mg Tablet 5 Mg PO MOWEFR TAKES 1/2 OF A (10 MG) TABLET Novolog Flexpen (Insulin Aspart) 300 Units/3 Ml Solution 15-20 Units SQ AC Synthroid (Levothyroxine Sodium) 75 Mcg Tablet 75 Mcg PO 0430 Instructions to patient/family Please see electronic discharge instructions given to patient. Clinical Quality Measures DVT/VTE Risk/Contraindication: Risk Factor Score Per Nursin RFS Level Per Nursing on Admit: 3=High Problem Qualifiers (1) Respiratory failure: Chronicity: acute Respiratory failure complication: unspecified whether with hypoxia or hypercapnia Qualified Codes: J96.00 - Acute respiratory failure, unspecified whether with hypoxia or hypercapnia (2) Asthma attack: Asthma severity: moderate Asthma persistence: persistent Qualified Codes: J45.41 - Moderate persistent asthma with (acute) exacerbation (3) Sleep apnea: Sleep apnea type: unspecified type Qualified Codes: G47.30 - Sleep apnea, unspecified (4) Hypertension: Hypertension type: essential hypertension Qualified Codes: I10 - Essential ( primary) hypertension (5) Hypothyroidism: Hypothyroidism type: acquired Qualified Codes: E03.9 - Hypothyroidism, unspecified (6) Hyperlipidemia: Hyperlipidemia type: mixed hyperlipidemia Qualified Codes: E78.2 - Mixed hyperlipidemia (7) Diabetes: Diabetes mellitus type: type 2 Diabetes mellitus assisted insulin use: with tank terminal gauger use Diabetes mellitus complication status: without complication Qualified Codes: E11.9 - Type 2 diabetes mellitus without complications; Z79.4 - intermediate school teacher (current) use of insulin CATALINA CROSS DO Jun 13, 2018 10:51
[2018-06-14] MEDS ORDERED: FUROSEMIDE 40 MG (LASIX) TAB PO SCH (09:00)
== END 2018-06-13 13:33 | disposition home or self-care (01) | DRG 202 ==
LOC: 4TH 13:30
PROVIDERS: ADMIT Internal Medicine; ATTEND Internal Medicine
DX: J45.41 Moderate persistent asthma with (acute) exacerbation (principal); J96.00 Acute respiratory failure, unspecified whether with hypoxia or hypercapnia; J44.1 Chronic obstructive pulmonary disease with (acute) exacerbation; J44.0 Chronic obstructive pulmonary disease with (acute) lower respiratory infection; J20.9 Acute bronchitis, unspecified; R07.89 Other chest pain; J98.11 Atelectasis; E87.6 Hypokalemia; R60.0 Localized edema; E11.65 Type 2 diabetes mellitus with hyperglycemia; T38.0X5A Adverse effect of glucocorticoids and synthetic analogues, initial encounter; I10 Essential (primary) hypertension; E11.40 Type 2 diabetes mellitus with diabetic neuropathy, unspecified; E78.2 Mixed hyperlipidemia; F32.9 Major depressive disorder, single episode, unspecified; D64.9 Anemia, unspecified; E03.9 Hypothyroidism, unspecified; G47.33 Obstructive sleep apnea (adult) (pediatric); Z79.4 Long term (current) use of insulin; Z87.01 Personal history of pneumonia (recurrent)
CPT/HCPCS: 36415; 36600; 71046; 80053; 82962; 83605; 83880; 84484; 85007; 85025; 85027; 87040; 93005; 94640; 94760

== ENCOUNTER → 2018-07-20 | Outpatient (CLI) | payer BC ==
[~2018-07-20] MED LIST changes: +HYDR-3923 PO; +IRBE300T18 PO; -LEVA1.2516 NEB; +LEVA1.2521 NEB; +LEVA1.2543 NEB; +LOSA100T57 PO; -LOSA100T8 PO; +MINO2.5T PO; +MONT10TA21 PO; +PRD10T PO
--- NOTE | 2018-07-20 16:38 | Diagnostic Imaging Report ---
INDICATION: Decreased diffusion capacity of lung. Bronchitis.. TECHNIQUE: Two view chest 4:16 PM CORRELATION STUDY: 06/10/2018 FINDINGS: Heart size and configuration is generally stable. There is fullness of the hilar structures, left greater than right. This appears relatively stable. No significant effusion. Mild degenerative changes of the thoracic spine. Prior right rotator cuff surgery. IMPRESSION: 1. Negative for acute abnormality of the chest followup. The lungs appear clear. Dictated by: Dictated on workstation # [id number]
== END ==
LOC: RAD 15:58
PROVIDERS: ATTEND Nurse Practitioner Family
DX: J40 Bronchitis, not specified as acute or chronic (principal)
CPT/HCPCS: 71046

== ENCOUNTER 2018-09-01 16:04 | Emergency (ER) | payer BC ==
[~2018-09-01] VITALS: Ht 170.2 cm; Wt 101.2 kg
[2018-09-01] MEDS ORDERED: DEXTROSE 50% 50 ML (IMS) SYR ONE (16:17)
--- NOTE | 2018-09-01 16:22 | NUR ---
IMPROVED TALKING ALERT ANSWERING QUESTIONS
--- NOTE | 2018-09-01 16:24 | ED General ---
General Stated Complaint: CONFUSED,WAS IN PULUMANARY REHAB AND GOT CONFUSED Source of Information: Patient Exam Limitations: No Limitations History of Present Illness Date Seen by Provider: Sep 01, 2018 Time Seen by Provider: 16:22 Initial Comments To ER with sudden onset confusion while at pulmonary rehabilitation today. Timing/Duration: 1/2 Hour Severity: Moderate Associated Systoms: Diaphoresis Allergies and Home Medications Allergies Coded Allergies: codeine (Verified Allergy, Unknown, PT HAS TAKEN HYDROCODONE W/O ISSUE, ) sulfamethoxazole (Verified Allergy, Unknown, 07/19/08) trimethoprim (Verified Allergy, Unknown, 07/19/08) Home Medications Aspirin 81 Mg Tab.chew, 81 MG PO DAILY, (Reported) Fluticasone Propionate 16 Gm [place].susp, 1 SPRAY NS DAILY, (Reported) Fluticasone/Salmeterol 1 Each Blst.w.dev, 1 PUFF IH BID, (Reported) Furosemide 40 Mg Tablet, 40 MG PO MoWeFr, (Reported) Hydralazine HCl 25 Mg Tablet, 25 MG PO TID, (Reported) Insulin Aspart 300 Units/3 Ml Solution, 15-20 UNITS SQ AC, (Reported) Insulin Detemir 100 Unit/1 Ml Insuln.pen, 20-38 UNITS SQ HS, (Reported) Irbesartan 300 Mg Tablet, 300 MG PO DAILY, (Reported) Levalbuterol HCl 1.25 Mg/0.5 Ml Vial.neb, 1.25 MG NEB Q4H, (Reported) Levothyroxine Sodium 75 Mcg Tablet, 75 MCG PO 0430, (Reported) Minoxidil 2.5 Mg Tablet, 5 MG PO DAILY, (Reported) TAKES 2 (2.5MG) TABLETS Montelukast Sodium 10 Mg Tablet, 10 MG PO HS, (Reported) Nebivolol HCl 5 Mg Tablet, 5 MG PO DAILY, (Reported) Pravastatin Sodium 10 Mg Tablet, 5 MG PO MoWeFr, (Reported) TAKES 1/2 OF A (10 MG) TABLET Prednisone 10 Mg Tab, 10 MG PO UD TAKE 4 TABS DAILY X 4 DAYS THEN 3 TABS X3 DAYS, THEN 2 TABS X2 DAYS, THEN 1 TAB DAILY X1 DAY. Prescribed by: YELITZA PEÑA on 06/13/18 1020 Patient Home Medication List Home Medication List Reviewed: Yes Review of Systems Review of Systems Constitutional: see HPI, other (unable to contribute to history of present illness on arrival) Past Bftyith-Jneugq-Layvls Hx Patient Social History Recent Foreign Travel: No Contact w/Someone Who Travel: No Recent Hopitalizations: Yes Immunizations Up To Date PED Vaccines UTD: No Date of Pneumonia Vaccine: Mar 26, 2018 Date of Influenza Vaccine: Mar 26, 2018 Seasonal Allergies Seasonal Allergies: No Past Medical History Surgeries: Yes (R ROTATOR CUFF 12/2004) Respiratory: Yes Asthma, Pneumonia, Chronic Bronchitis Currently Using CPAP: No Currently Using BIPAP: No Cardiac: Yes (HYPERTENSION) Chronic Edema/Swelling, High Cholesterol, Hypertension Neurological: No Neuropathy Reproductive Disorders: Yes Female Reproductive Disorders: Denies Sexually Transmitted Disease: No HIV/AIDS: No Genitourinary: Yes Bladder Infection Gastrointestinal: No Musculoskeletal: No Endocrine: Yes Diabetes, Insulin dep, Hypothyroidsim HEENT: No Loss of Vision: Denies Hearing Impairment: Denies Cancer: No Did You Recieve Any Treatments: No Psychosocial: Yes Depression Integumentary: No Blood Disorders: No Adverse Reaction/Blood Tranf: No Family Medical History Diabetes mellitus 19 MOTHER, , Age:60 FH: breast cancer 19 MOTHER, , Age:60 (mets to liver) Diabetes Physical Exam Vital Signs Vital Signs - First Documented 09/01/18 16:12 Temp 95.7 Pulse 74 Resp 18 B/P (MAP) 180/90 (120) Pulse Ox 93 O2 Delivery Room Air Capillary Refill : Height, Weight, BMI Height: 5'7.00" Weight: 229lbs. 0.4oz. 108.057529oj; 35.7 BMI Method:Stated General Appearance: WD/WN, Other (on arrival she is pale, diaphoretic, eyes are open but unresponsive to verbal stimuli. Finger stick blood sugar was checked and found to be 35. 20-gauge IV was established in the left antecubital fossa, she was given 25 g of D50 which resulted in almost immediate improvement in mentation back to baseline.) Neck: Full Range of Motion, Normal Inspection Respiratory: No Accessory Muscle Use, No Respiratory Distress Gastrointestinal: Non Tender, Soft Extremity: Normal Capillary Refill, Normal Inspection Neurologic/Psychiatric: Alert, Oriented x3 Skin: Normal Color, Warm/Dry Progress/Results/Core Measures Suspected Sepsis SIRS Temperature: Pulse: Respiratory Rate: Laboratory Tests 09/01/18 16:22: White Blood Count 10.5 Blood Pressure / Mean: Laboratory Tests 09/01/18 16:22: Creatinine 0.96, INR Comment 1.0, Platelet Count 340, Total Bilirubin 0.5 Results/Orders Lab Results Laboratory Tests Test 09/01/18 16:17 09/01/18 16:22 09/01/18 17:33 09/01/18 18:16 Range/Units Glucometer 35 *L 88 127 H 70-110 MG/DL White Blood Count 10.5 4.3-11.0 10^3/uL Red Blood Count 4.79 4.35-5.85 10^6/uL Hemoglobin 13.0 11.5-16.0 G/DL Hematocrit 39 35-52 % Mean Corpuscular Volume 81 80-99 FL Mean Corpuscular Hemoglobin 27 25-34 PG Mean Corpuscular Hemoglobin Concent 34 32-36 G/DL Red Cell Distribution Width 13.8 10.0-14.5 % Platelet Count 340 130-400 10^3/uL Mean Platelet Volume 9.6 7.4-10.4 FL Neutrophils (%) (Auto) 58 42-75 % Lymphocytes (%) (Auto) 30 12-44 % Monocytes (%) (Auto) 8 0-12 % Eosinophils (%) (Auto) 3 0-10 % Basophils (%) (Auto) 1 0-10 % Neutrophils # (Auto) 6.1 1.8-7.8 X 10^3 Lymphocytes # (Auto) 3.2 1.0-4.0 X 10^3 Monocytes # (Auto) 0.9 0.0-1.0 X 10^3 Eosinophils # (Auto) 0.3 0.0-0.3 10^3/uL Basophils # (Auto) 0.1 0.0-0.1 10^3/uL Prothrombin Time 12.9 12.2-14.7 SEC INR Comment 1.0 0.8-1.4 Activated Partial Thromboplast Time 26 24-35 SEC D-Dimer 0.51 H 0.00-0.49 UG/ML Sodium Level 140 135-145 MMOL/L Potassium Level 3.3 L 3.6-5.0 MMOL/L Chloride Level 110 H 98-107 MMOL/L Carbon Dioxide Level 22 21-32 MMOL/L Anion Gap 8 5-14 MMOL/L Blood Urea Nitrogen 21 H 7-18 MG/DL Creatinine 0.96 0.60-1.30 MG/DL Estimat Glomerular Filtration Rate 59 BUN/Creatinine Ratio 22 Glucose Level 30 *L 70-105 MG/DL Calcium Level 9.6 8.5-10.1 MG/DL Corrected Calcium 9.2 8.5-10.1 MG/DL Magnesium Level 2.2 1.8-2.4 MG/DL Total Bilirubin 0.5 0.1-1.0 MG/DL Aspartate Amino Transf (AST/SGOT) 16 5-34 U/L Alanine Aminotransferase (ALT/SGPT) 16 0-55 U/L Alkaline Phosphatase 96 40-136 U/L Total Protein 7.0 6.4-8.2 GM/DL Albumin 4.5 3.2-4.5 GM/DL Test 09/01/18 18:34 Range/Units Urine Color YELLOW Urine Clarity CLEAR Urine pH 6 5-9 Urine Specific [place] 1.015 L 1.016-1.022 Urine Protein 1+ H NEGATIVE Urine Glucose (UA) 1+ H NEGATIVE Urine Ketones NEGATIVE NEGATIVE Urine Nitrite NEGATIVE NEGATIVE Urine Bilirubin NEGATIVE NEGATIVE Urine Urobilinogen NORMAL NORMAL MG/DL Urine Leukocyte Esterase NEGATIVE NEGATIVE Urine RBC (Auto) NEGATIVE NEGATIVE Urine RBC NONE /HPF Urine WBC NONE /HPF Urine Squamous Epithelial Cells 2-5 /HPF Urine Crystals NONE /LPF Urine Bacteria NEGATIVE /HPF Urine Casts NONE /LPF Urine Mucus NEGATIVE /LPF Urine Culture Indicated NO My Orders Orders - ZEB CERRATO APRN Accucheck Stat ONCE (09/01/18 16:15) Cbc With Automated Diff (09/01/18 16:15) Comprehensive Metabolic Panel (09/01/18 16:15) Magnesium (09/01/18 16:15) Protime With Inr (09/01/18 16:15) Partial Thromboplastin Time (09/01/18 16:15) Fibrin Degradation Products (09/01/18 16:15) Ua Culture If Indicated (09/01/18 16:15) Iv Heplock-Insert (Order) (09/01/18 16:15) General/Regular (09/01/18 Lunch) D50w (Emergency) Syringe (Dextrose 50% 5 (09/01/18 17:45) Medications Given in ED Current Medications Medications Dose Ordered Sig/Pia Route Start Time Stop Time Status Last Admin Dose Admin Dextrose 25 ml ONCE ONCE IV 09/01/18 17:45 09/01/18 17:46 DC 09/01/18 17:43 25 ML Dextrose 50 ml STK-MED ONCE .ROUTE 09/01/18 16:17 09/01/18 16:19 DC 09/01/18 16:19 50 ML Vital Signs/I&O 09/01/18 16:12 Temp 95.7 Pulse 74 Resp 18 B/P (MAP) 180/90 (120) Pulse Ox 93 O2 Delivery Room Air Capillary Refill : Departure Impression Primary Impression: Hypoglycemia associated with diabetes Disposition: HOME, SELF-CARE Condition: Stable Departure-Patient Inst. Decision time for Depature: 18:55 Referrals: CATALINA CROSS DO (PCP/Family) Primary Care Physician Patient Instructions: HYPOGLYCEMIA Add. Discharge Instructions: 1. Return to ER for any concerns 2. Follow-up with your doctor later next week 3. Check your blood sugar about every 1-2 hours for the remainder of this evening ZEB CERRATO APRN Sep 01, 2018 16:23
--- NOTE | 2018-09-01 16:27 | NUR ---
FOOD TRAY GIVEN
[2018-09-01 16:28] LABS: BASOPHILS # (AUTO) 0.1 10^3/uL (0.0-0.1); BASOPHILS % (AUTO) 1 % (0-10); EOSINOPHILS # (AUTO) 0.3 10^3/uL (0.0-0.3); EOSINOPHILS % (AUTO) 3 % (0-10); HEMATOCRIT 39 % (35-52); LYMPHOCYTES # (AUTO) 3.2 X 10^3 (1.0-4.0); LYMPHOCYTES % (AUTO) 30 % (12-44); MEAN CORPUSCULAR HEMOGLOBIN 27 PG (25-34); MEAN CORPUSCULAR HGB CONC 34 G/DL (32-36); MEAN CORPUSCULAR VOLUME 81 FL (80-99); MEAN PLATELET VOLUME 9.6 FL (7.4-10.4); MONOCYTES # (AUTO) 0.9 X 10^3 (0.0-1.0); MONOCYTES % (AUTO) 8 % (0-12); NEUTROPHILS # (AUTO) 6.1 X 10^3 (1.8-7.8); NEUTROPHILS % (AUTO) 58 % (42-75); PLATELET COUNT 340 10^3/uL (130-400); RED CELL DISTRIBUTION WIDTH 13.8 % (10.0-14.5); WHITE BLOOD COUNT 10.5 10^3/uL (4.3-11.0)
[2018-09-01 16:48] LABS: FIBRIN DEGRADATION PRODUCTS 0.51 UG/ML (0.00-0.49); PROTHROMBIN TIME PATIENT 12.9 SEC (12.2-14.7)
[2018-09-01 16:49] LABS: ALBUMIN 4.5 GM/DL (3.2-4.5); BILIRUBIN,TOTAL 0.5 MG/DL (0.1-1.0); CALCIUM 9.6 MG/DL (8.5-10.1); CREATININE SERUM 0.96 MG/DL (0.60-1.30); MAGNESIUM 2.2 MG/DL (1.8-2.4); POTASSIUM 3.3 MMOL/L (3.6-5.0)
[2018-09-01] MEDS ORDERED: DEXTROSE 50% 50 ML (IMS) SYR IV ONE (17:45)
[2018-09-01 18:39] LABS: BILIRUBIN,URINE NEGATIVE (NEGATIVE); CLARITY,URINE CLEAR; COLOR,URINE YELLOW; GLUCOSE, URINE (UA) 1+ (NEGATIVE); KETONES,URINE NEGATIVE (NEGATIVE); LEUKOCYTE ESTERASE ,URINE NEGATIVE (NEGATIVE); NITRITE,URINE NEGATIVE (NEGATIVE); PH,URINE 6 (5-9); PROTEIN,URINE 1+ (NEGATIVE); UROBILINOGEN,URINE NORMAL (NORMAL)
[2018-09-01 18:52] LABS: BACTERIA,URINE NEGATIVE /HPF
[2018-09-01 19:25] VITALS: BP 151/78
== END 2018-09-01 19:25 | disposition home or self-care (01) ==
LOC: EDUNIT# 16:04 → ER 16:07
DX: E11.649 Type 2 diabetes mellitus with hypoglycemia without coma (principal); J44.9 Chronic obstructive pulmonary disease, unspecified; E78.00 Pure hypercholesterolemia, unspecified; I10 Essential (primary) hypertension; F32.9 Major depressive disorder, single episode, unspecified; E03.9 Hypothyroidism, unspecified; E11.40 Type 2 diabetes mellitus with diabetic neuropathy, unspecified; Z87.448 Personal history of other diseases of urinary system; Z88.5 Allergy status to narcotic agent; Z88.2 Allergy status to sulfonamides; Z88.8 Allergy status to other drugs, medicaments and biological substances; Z80.3 Family history of malignant neoplasm of breast; Z79.82 Long term (current) use of aspirin; Z79.51 Long term (current) use of inhaled steroids; Z79.4 Long term (current) use of insulin; Z79.52 Long term (current) use of systemic steroids; Z87.01 Personal history of pneumonia (recurrent)
CPT/HCPCS: 36415; 80053; 81000; 82962; 83735; 85025; 85379; 85610; 85730; 96374; 96376

== ENCOUNTER 2018-10-01 15:00 | Outpatient (RCR) | payer BC ==
--- NOTE | 2018-07-06 09:02 | Pulmonary Rehab Eval/Txmt Plan ---
Pulmonary Rehab Initial Eval Information Paper Evaluation Completed: Yes Date: Jul 06, 2018 Therapist: MELANIA RIVERA Diagnosis: ACUTE RESPIRATORY FAILURE Pulmonary Rehab Treatment Plan Treatment P Treatment [place]iord: Initial Diagnosis Diagnosis: ACUTE RESPIRATORY FAILURE Date: Jul 06, 2018 Barriers to Learning Barriers: None Assessment/Problems Exercise: Deconditioning Type: AEROBIC Frequency: 2 X'S PER WEEK Duration: 1 HR CLASS; EXERCISE PER PT'S TOLERANCE Barriers to Exercise: NONE Initial MET Level: 2 Aerobic Exercise/Goals Freq: time per week minus SD: 2 MET Level=: 2 Type: Arm Ergometry, Bike, Scifi/Nustep, Treadmill RENITA HARRIS DO Jul 06, 2018 09:02
[2018-08-04 15:00] VITALS: BP 145/60
[2018-08-04 16:00] VITALS: BP 118/60
[2018-08-06 15:00] VITALS: BP 130/60
[2018-08-06 16:00] VITALS: BP 140/60
[2018-08-11 15:00] VITALS: BP 120/60
[2018-08-11 16:00] VITALS: BP 160/60
[2018-08-13 15:00] VITALS: BP 130/80
[2018-08-13 15:53] VITALS: BP 130/88
[2018-08-18 15:00] VITALS: BP 138/60
[2018-08-18 16:00] VITALS: BP 120/60
[2018-08-20 15:00] VITALS: BP 120/60
[2018-08-20 16:00] VITALS: BP 143/60
[2018-09-01 15:00] VITALS: BP 157/87
[2018-09-01 16:00] VITALS: BP 142/60
[2018-09-03 15:00] VITALS: BP 158/60
[2018-09-03 15:56] VITALS: BP 140/60
[2018-09-08 14:55] VITALS: BP 118/60
[2018-09-08 15:45] VITALS: BP 144/82
[2018-09-10 15:00] VITALS: BP 137/60
[2018-09-10 15:50] VITALS: BP 144/80
[2018-09-15 15:00] VITALS: BP 143/60
[2018-09-15 16:00] VITALS: BP 150/70
[2018-09-22 15:00] VITALS: BP 137/80
[2018-09-24 15:00] VITALS: BP 115/80
[2018-09-24 16:00] VITALS: BP 115/60
[2018-09-29 15:00] VITALS: BP 142/80
[2018-09-29 15:55] VITALS: BP 130/60
[2018-10-01 15:00] VITALS: BP 132/76
[2018-10-01 15:55] VITALS: BP 120/60
[2018-10-06 15:00] VITALS: BP 151/97
[2018-10-06 16:00] VITALS: BP 120/60
== END 2018-10-04 | disposition home or self-care (01) ==
LOC: PULM 15:00
PROVIDERS: ATTEND Internal Medicine
DX: J45.41 Moderate persistent asthma with (acute) exacerbation (principal); J96.00 Acute respiratory failure, unspecified whether with hypoxia or hypercapnia
CPT/HCPCS: 99211

== ENCOUNTER 2018-10-08 14:47 | Outpatient (RCR) | payer BC ==
[2018-12-10] MEDS ORDERED: POTA10TA10 PO (13:28)
== END 2019-01-06 ==
LOC: PULM 14:47
PROVIDERS: ATTEND Internal Medicine
DX: J45.41 Moderate persistent asthma with (acute) exacerbation (principal); J96.00 Acute respiratory failure, unspecified whether with hypoxia or hypercapnia

== ENCOUNTER 2018-12-10 13:30 | Outpatient (CLI) | payer BC ==
[~2018-12-10] VITALS: Ht 170.2 cm; Wt 97.7 kg
[~2018-12-10 13:30] MED LIST changes: +POTA10TA10 PO
== END 2018-12-10 14:03 | disposition home or self-care (01) ==
LOC: PREOP 13:30
PROVIDERS: ATTEND Surgery
DX: Z01.818 Encounter for other preprocedural examination (principal)

== ENCOUNTER → 2018-12-16 | Day surgery (SDC) | payer BC ==
[~2018-12-16] VITALS: Ht 170.2 cm; Wt 97.7 kg
[~2018-12-16] MED LIST changes: +ACETAMINOPHEN 325 MG TABLET PO PRN; +HYDROcodone/APAP 5 MG/325 MG (LORTAB) TAB PO PRN; +LIDOCAINE JELLY 2% 6 ML SYRINGE MM PRN; +LIDOCAINE JELLY 2% 6 ML SYRINGE ONE; +MIDAZOLAM 2 MG/2 ML (VERSED) VIAL IVP ONE; +MIDAZOLAM 2 MG/2 ML (VERSED) VIAL ONE; +NS IV 500 ML 500 ML IV PRN; +NS IV 500 ML 500 ML ONE; +ONDANSETRON 4 MG/2 ML (SDV) Z0FRAN IVP PRN; +fentaNYL INJECTION 100 MCG/2 ML AMP IVP ONE; +fentaNYL INJECTION 100 MCG/2 ML AMP ONE; +morphine INJ 10 MG/ML 1ML (SYR OR VIAL) IVP PRN
[2018-12-16 09:57] VITALS: BP 177/92
--- NOTE | 2018-12-16 10:29 | Conscious Sedation/ASA ---
Conscious Sedation Pre-Proced Time 10:00 ASA Score 2 For ASA 3 and 4: Consider anesthesia and medical clearance. Also, for patients with a history of failed moderate sedation consider anesthesia. Airway Lungs Heart ASA score ASA 1: a normal healthy patient ASA 2: a patient with a mild systemic disease (mid diabetes, controlled hypertension, obesity ASA 3: a patient with a severe systemic disease that limits activity (angina, COPD, prior Myocardial infarction) ASA 4: a patient with an incapacitating disease that is a constant threat to life (CHF, renal failure) ASA 5: a moribund patient not expected to survive 24 hrs. (ruptured aneurysm) ASA 6: a declared brain- patient whose organs are being harvested. For emergent operations, add the letter E after the classification Mallampati Classification Grade 2 Sedation Plan Analgesia, Amnesia, Plan communicated to team members, Discussed options with patient/fam, Discussed risks with patient/fam The patient is an appropriate candidate to undergo the planned procedure, sedation, and anesthesia. The patient immediately re-assessed prior to indication. ROBER POMPA MD Dec 16, 2018 10:29
--- NOTE | 2018-12-16 10:30 | Progress Note-Pre Operative ---
Pre-Operative Progress Note H&P Reviewed The H&P was reviewed, patient examined and no changes noted. Date Seen by Provider: Dec 16, 2018 Time Seen by Provider: 10:00 Date H&P Reviewed: Dec 16, 2018 Time H&P Reviewed: 10:00 Pre-Operative Diagnosis: screening ROBER Trammell MD Dec 16, 2018 10:30
--- NOTE | 2018-12-16 10:31 | Discharge Inst-Surgical ---
D/C Lap Instructions-PEÑA Follow Up Activity as tolerated Regular Diet Symptoms to Report: Fever over 101 degree F, Nausea/Vomiting Infection Signs and Symptoms to report: Increased redness, Foul odor of wound, Increased drainage Bathing instructions: May shower Operative Area Clean/Dry; Keep incision clean/dry If any problems/questions: Contact your physician or go to Emergency Room ROBER POMPA MD Dec 16, 2018 10:31
--- NOTE | 2018-12-16 11:41 | Progress Note-Post Operative ---
Post-Operative Progess Note Surgeon (s)/Laundry Tub Maker (s) Surgeon ROBER POMPA MD Laundry Tub Maker: none Pre-Operative Diagnosis screening colo Post-Operative Diagnosis mild chronic sigmoid diverticulosis. Procedure & Operative Findings Date of Procedure 12/16/18 Procedure Performed/Findings colonoscopy. Anesthesia Type cs Estimated Blood Loss Estimated blood loss (mL): minimal Specimens/Packing Specimens Removed none ROBER POMPA MD Dec 16, 2018 11:41
[2018-12-16 11:50] VITALS: BP 134/73
--- NOTE | 2018-12-16 16:25 | OPERATIVE REPORT ---
DATE OF SERVICE: 12/16/2018 ATTENDING PHYSICIAN: Dr. Deluca. PREOPERATIVE DIAGNOSIS: Screening colonoscopy. POSTOPERATIVE DIAGNOSIS: Mild sigmoid diverticulosis. PROCEDURE: Colonoscopy. SURGEON: Rober Alston MD ANESTHESIA: Conscious sedation. ESTIMATED BLOOD LOSS: Minimal. FINDINGS: No significant hemorrhoids identified. There was a mild sigmoid diverticulosis. Remainder of the colon was normal. There were no polyps or any neoplasms identified. DISPOSITION: The patient tolerated the procedure well. INDICATIONS: The patient is a 63-year-old female in need of a screening colonoscopy. Her last colonoscopy was 10 years ago and she reports that to be normal. She states that she is otherwise doing well. Does not report any major issues with diarrhea, no constipation as well as no red blood per rectum nor any dark tarry stools. She also does not report any family history of colon cancer. DESCRIPTION OF PROCEDURE: The patient was brought to the endoscopy suite, laid in left lateral decubitus position. After adequate IV pain and sedative medications and conscious sedation anesthesia, a digital rectal examination was performed. No significant hemorrhoids identified. Normal sphincter tone was felt and there are no palpable masses. The endoscope was then intubated to the anus and rectum gently insufflated. The endoscope was then advanced to the valves of Elliott in the rectum. No polyps or any neoplasms identified. We then proceeded to the sigmoid colon where mild sigmoid diverticulosis identified. There were no mucosal inflammatory changes to indicate any active diverticulitis. The endoscope was then advanced through the remainder of the descending, transverse, ascending colon and the cecum. These segments were normal. There were no polyps or any neoplasms identified throughout the colon or rectum. The endoscope was then slowly withdrawn while taking a second look and suctioning of residual air with no additional findings. The patient tolerated the procedure well. We will recommend continued conservative therapy management with a high fiber diet with at least 25 grams of fiber daily as well as significant amounts of water to promote soft stools on a daily basis. She does not need another colonoscopy for another 10 years. Job ID: [id number] DocumentID: [id number] Dictated Date: 12/16/2018 11:35:15 Staff Nurse Anesthetist Date: 12/16/2018 16:24:45 Dictated By: ROBER ALSTON MD [facility]
== END | disposition home or self-care (01) ==
LOC: ENDO 09:26
PROVIDERS: ATTEND Surgery
DX: Z12.11 Encounter for screening for malignant neoplasm of colon (principal); K57.30 Diverticulosis of large intestine without perforation or abscess without bleeding; E10.9 Type 1 diabetes mellitus without complications; E78.00 Pure hypercholesterolemia, unspecified; E03.9 Hypothyroidism, unspecified; I10 Essential (primary) hypertension; R60.9 Edema, unspecified; Z79.82 Long term (current) use of aspirin; Z79.4 Long term (current) use of insulin; Z79.899 Other long term (current) drug therapy

== ENCOUNTER → 2019-07-05 | Outpatient (CLI) | payer BC ==
[~2019-07-05] MED LIST changes: -ACETAMINOPHEN 325 MG TABLET PO PRN; +ASCO250T17 PO; -ASCO250T5 PO; -HYDR473S34 PO; +HYDR473S61 PO; -HYDROcodone/APAP 5 MG/325 MG (LORTAB) TAB PO PRN; -LIDOCAINE JELLY 2% 6 ML SYRINGE MM PRN; -LIDOCAINE JELLY 2% 6 ML SYRINGE ONE; -MIDAZOLAM 2 MG/2 ML (VERSED) VIAL IVP ONE; -MIDAZOLAM 2 MG/2 ML (VERSED) VIAL ONE; -NS IV 500 ML 500 ML IV PRN; -NS IV 500 ML 500 ML ONE; +OMEP40CA27 PO; -OMEP40CA36 PO; -ONDANSETRON 4 MG/2 ML (SDV) Z0FRAN IVP PRN; -fentaNYL INJECTION 100 MCG/2 ML AMP IVP ONE; -fentaNYL INJECTION 100 MCG/2 ML AMP ONE; -morphine INJ 10 MG/ML 1ML (SYR OR VIAL) IVP PRN
--- NOTE | 2019-07-05 12:16 | Diagnostic Imaging Report ---
INDICATION: Routine screening. COMPARISON: 04/16/2018 and 04/04/2017. TECHNIQUE: 2D and 3D bilateral screening mammography was performed with CAD. FINDINGS: Both breasts are heterogeneously dense, limiting the sensitivity of mammography. No mass or malignant appearing microcalcifications are seen. The axillae are unremarkable. IMPRESSION: No mammographic features suspicious for malignancy are identified. ACR BI-RADS Category 1: Negative. Result letter will be mailed to the patient. Note: At least 10% of breast cancer is not imaged by mammography. Dictated by: Dictated on workstation # [id number]
== END ==
LOC: RAD 10:18
PROVIDERS: ATTEND Internal Medicine
DX: Z12.31 Encounter for screening mammogram for malignant neoplasm of breast (principal)
CPT/HCPCS: 77067

== ENCOUNTER → 2020-09-04 | Outpatient (CLI) | payer BC ==
[~2020-09-04] MED LIST changes: +ASPI-1238 PO; -ASPI-983 PO; +IRBE300T17 PO; -IRBE300T18 PO; -MONT10TA24 PO; +MONT10TA32 PO
--- NOTE | 2020-09-04 12:28 | Diagnostic Imaging Report ---
Indication: Routine screening Comparison is made with prior mammogram from 07/05/2019 and 04/16/2018. 2-D and 3-D bilateral screening mammography was performed with CAD. Both breasts are heterogeneously dense, limiting the sensitivity of mammography. No mass or malignant appearing microcalcifications are seen. Axillae are unremarkable. IMPRESSION: BI-RADS Category 1 No mammographic features suspicious for malignancy are identified. ACR BI-RADS Category 1: Negative. Result letter will be mailed to the patient. Note: At least 10% of breast cancer is not imaged by mammography. Dictated by: Dictated on workstation # [id number]
== END ==
LOC: CARD 08:57
PROVIDERS: ATTEND Internal Medicine
DX: Z12.31 Encounter for screening mammogram for malignant neoplasm of breast (principal); I34.0 Nonrheumatic mitral (valve) insufficiency
CPT/HCPCS: 77063; 77067; 93306

== ENCOUNTER → 2021-09-05 | Outpatient (CLI) | payer BC ==
[~2021-09-05] MED LIST changes: +FLUC100T10 PO; -FLUC100T6 PO; +MONT-40 PO; -MONT10TA32 PO; -OMEP40CA27 PO; +OMEP40CA6 PO; +POTA-164 PO; -POTA10TA14 PO
--- NOTE | 2021-09-06 09:43 | Diagnostic Imaging Report ---
INDICATION: Routine screening. COMPARISON: 09/04/2020 and 07/05/2019. TECHNIQUE: 2D and 3D bilateral screening mammography was performed with CAD. FINDINGS: Both breasts are heterogeneously dense, limiting the sensitivity of mammography. The overall parenchymal pattern is stable. No mass or malignant-appearing microcalcifications are seen. The axillae are unremarkable. IMPRESSION: No mammographic features suspicious for malignancy are identified. ACR BI-RADS Category 1: Negative. Result letter will be mailed to the patient. Note: At least 10% of breast cancer is not imaged by mammography. Dictated by: Dictated on workstation # [id number]
== END ==
LOC: RAD 15:45
PROVIDERS: ATTEND Internal Medicine
DX: Z12.31 Encounter for screening mammogram for malignant neoplasm of breast (principal)
CPT/HCPCS: 77063; 77067

== ENCOUNTER → 2021-12-07 | Outpatient (CLI) | payer BC | LOC: CARD 13:30 | PROVIDERS: ATTEND Internal Medicine Cardiovascular Disease | DX: I08.1 Rheumatic disorders of both mitral and tricuspid valves (principal) | CPT/HCPCS: 93306 ==

== ENCOUNTER 2022-08-01 15:59 | Inpatient (IN) | payer BC ==
[~2022-08-01] VITALS: Ht 177 cm; Wt 101.3 kg
[2022-08-01 17:04] VITALS: BP 158/80
[2022-08-01] MEDS ORDERED: ACETAMINOPHEN 325 MG TABLET PO PRN (17:15)
[2022-08-01] MEDS ORDERED: LACTULOSE SYRUP 10GM/15ML (ENULOSE) 30ML UDC PO PRN (17:15)
[2022-08-01] MEDS ORDERED: ONDANSETRON 4 MG (ZOFRAN) ORAL DISSOLVE TAB PO PRN (17:15)
[2022-08-01] MEDS ORDERED: MILK OF MAGNESIA 400 MG/5 ML 30 ML UDC PO PRN (17:15)
[2022-08-01] MEDS ORDERED: ONDANSETRON 4 MG/2 ML (SDV) Z0FRAN IV PRN (17:15)
[2022-08-01] MEDS ORDERED: diphenhydrAMINE 25 MG TAB (BENADRYL) PO PRN (17:15)
[2022-08-01] MEDS ORDERED: ANTACID SUSP 30 ML UDC (MYLANTA) PO PRN (17:15)
[2022-08-01] MEDS ORDERED: diphenhydrAMINE 50 MG/ML INJ (BENADRYL) IVP PRN (17:15)
[2022-08-01] MEDS ORDERED: BISACODYL 10 MG SUPP (DULCOLAX) PR PRN (17:15)
[2022-08-01] MEDS ORDERED: polyethylene glycoL POWDER 17 GM (MIRALAX) PACK PO PRN (17:15)
[2022-08-01] MEDS ORDERED: CALCIUM CARBONATE 500 MG (TUMS) TAB.CHEW PO PRN (17:15)
[2022-08-01] MEDS ORDERED: MELATONIN 3 MG TABLET PO PRN (17:15)
--- NOTE | 2022-08-01 17:40 | Diagnostic Imaging Report ---
Indication: Cough, fever. Compared: 07/20/2018 Findings: There is new suprahilar right upper lobe lung opacity given the history suspect for developing pneumonia. The left lung clear. Heart size upper limits but stable. No effusion. Impression: Probable right upper lung pneumonia but radiographic followup within one to two weeks' time recommended. Dictated by: Dictated on workstation # [id number]
[2022-08-01 17:44] LABS: ABG BASE EXCESS -1.4 MMOL/L (-2.5-2.5); ABG OXYGEN SATURATION 95 % (94-100); ABG PCO2 36 MMHG (35-45); ABG PH 7.41 (7.37-7.43); ABG PO2 61 MMHG (79-93); ABG TCO2 23.8 MMOL/L (21.0-31.0)
[2022-08-01 17:52] LABS: PATIENT TEMP 36.4; VENTILATOR NO
[2022-08-01] MEDS: CEFEPIME INJECTION 1,000 MG in NS (IVPB) 50 ML IV SCH (17:58)
[2022-08-01] MEDS: ENOXAPARIN 40 MG/0.4 ML (LOVENOX) SYR SC SCH (17:58)
[2022-08-01] MEDS: methylPREDNISolone 40 MG/ML (Solu-MEDROL) VIAL IV SCH (18:00)
[2022-08-01 18:08] LABS: BASOPHILS % (AUTO) 1 % (0-10); EOSINOPHILS # (AUTO) 0.2 10^3/uL (0.0-0.3); EOSINOPHILS % (AUTO) 6 % (0-10); HEMATOCRIT 36 % (35-52); LYMPHOCYTES # (AUTO) 1.2 10^3/uL (1.0-4.0); LYMPHOCYTES % (AUTO) 28 % (12-44); MEAN CORPUSCULAR HEMOGLOBIN 28 pg (25-34); MEAN CORPUSCULAR HGB CONC 33 g/dL (32-36); MEAN CORPUSCULAR VOLUME 83 fL (80-99); MONOCYTES # (AUTO) 0.4 10^3/uL (0.0-1.0); MONOCYTES % (AUTO) 10 % (0-12); NEUTROPHILS # (AUTO) 2.4 10^3/uL (1.8-7.8); NEUTROPHILS % (AUTO) 56 % (42-75); PLATELET COUNT 171 10^3/uL (130-400); WHITE BLOOD COUNT 4.3 10^3/uL (4.3-11.0)
[2022-08-01 18:13] VITALS: BP 158/80
[2022-08-01 18:18] LABS: ALBUMIN 3.7 GM/DL (3.2-4.5); POTASSIUM 3.8 MMOL/L (3.6-5.0)
[2022-08-01 18:21] LABS: TOTAL PROTEIN 6.3 GM/DL (6.4-8.2)
[2022-08-01 18:22] LABS: BILIRUBIN,TOTAL 0.5 MG/DL (0.1-1.0)
[2022-08-01 18:24] LABS: CREATININE SERUM 0.79 MG/DL (0.60-1.30)
[2022-08-01 19:23] VITALS: BP 176/106
[2022-08-01] MEDS ORDERED: RT-ALBUTEROL SULF 2.5 MG/3 ML PRE-MIX VIAL INH PRN (19:45)
[2022-08-01] MEDS ORDERED: amLODIPine 5 MG (NORVASC) TAB PO NR (20:00)
[2022-08-01] MEDS: DOXYCYCLINE INJECTION 100 MG in NS (IVPB) 100 ML IV SCH (20:18)
[2022-08-01] MEDS: SENNOSIDES 8.6 MG (SENOKOT) TAB PO SCH (21:00)
[2022-08-01] MEDS: DOCUSATE SODIUM 100 MG (COLACE) CAP PO SCH (21:00)
[2022-08-01] MEDS: RT-BUDESONIDE NEBS 0.5 MG/2ML (PULMICORT) AMP INH SCH (21:10)
[2022-08-01] MEDS ORDERED: RT-LEVALBUTEROL (XOPENEX) 1.25 MG/3 ML NEB NON-FORMULARY INH PRN ×2 (21:15→21:30)
[2022-08-01] MEDS: inSUlin ASPART (NovoLOG) 1 UNIT/0.01 ML (CHARGE PER UNIT) SC SCH (21:30)
[2022-08-01] MEDS: cloNIDine 0.1 MG (CATAPRES) TAB PO PRN (22:08)
[2022-08-01] MEDS: RT-LEVALBUTEROL (XOPENEX) 1.25 MG/3 ML NEB NON-FORMULARY INH SCH (22:24)
[2022-08-02] VITALS (7 sets, daily range): BP systolic 140–168; BP diastolic 69–89
[2022-08-02] MEDS: methylPREDNISolone 40 MG/ML (Solu-MEDROL) VIAL IV SCH ×5 (00:41→23:21)
[2022-08-02] MEDS: CEFEPIME INJECTION 1,000 MG in NS (IVPB) 50 ML IV SCH ×5 (00:42→23:21)
[2022-08-02 04:43] LABS: BASOPHILS % (AUTO) 0 % (0-10); EOSINOPHILS % (AUTO) 0 % (0-10); HEMATOCRIT 37 % (35-52); HEMOGLOBIN 12.4 g/dL (11.5-16.0); LYMPHOCYTES # (AUTO) 0.5 10^3/uL (1.0-4.0); LYMPHOCYTES % (AUTO) 13 % (12-44); MEAN CORPUSCULAR HEMOGLOBIN 27 pg (25-34); MEAN CORPUSCULAR HGB CONC 34 g/dL (32-36); MEAN CORPUSCULAR VOLUME 81 fL (80-99); MEAN PLATELET VOLUME 10.2 fL (9.0-12.2); MONOCYTES # (AUTO) 0.1 10^3/uL (0.0-1.0); MONOCYTES % (AUTO) 1 % (0-12); NEUTROPHILS # (AUTO) 3.6 10^3/uL (1.8-7.8); NEUTROPHILS % (AUTO) 85 % (42-75); PLATELET COUNT 176 10^3/uL (130-400); WHITE BLOOD COUNT 4.3 10^3/uL (4.3-11.0)
[2022-08-02 04:54] LABS: ALBUMIN 3.8 GM/DL (3.2-4.5); POTASSIUM 4.2 MMOL/L (3.6-5.0)
[2022-08-02 04:55] LABS: CALCIUM 9.1 MG/DL (8.5-10.1)
[2022-08-02 04:56] LABS: TOTAL PROTEIN 6.5 GM/DL (6.4-8.2)
[2022-08-02 04:58] LABS: BILIRUBIN,TOTAL 0.5 MG/DL (0.1-1.0)
[2022-08-02 05:00] LABS: CREATININE SERUM 0.82 MG/DL (0.60-1.30)
[2022-08-02 05:24] LABS: ATYPICAL LYMPHOCYTES 5 %; LYMPHOCYTES % (MANUAL) 7 %; MONOCYTES % (MANUAL) 1 %; NEUTROPHILS % (MANUAL) 86 %; RBC MORPH NORMAL
[2022-08-02] MEDS: inSUlin ASPART (NovoLOG) 1 UNIT/0.01 ML (CHARGE PER UNIT) SC SCH ×4 (05:50→21:32)
[2022-08-02] MEDS: RT-LEVALBUTEROL (XOPENEX) 1.25 MG/3 ML NEB NON-FORMULARY INH SCH ×2 (07:45→20:54)
[2022-08-02] MEDS: RT-BUDESONIDE NEBS 0.5 MG/2ML (PULMICORT) AMP INH SCH ×2 (07:46→20:54)
[2022-08-02] MEDS: DOCUSATE SODIUM 100 MG (COLACE) CAP PO SCH ×2 (08:18→20:22)
[2022-08-02] MEDS: SENNOSIDES 8.6 MG (SENOKOT) TAB PO SCH ×2 (08:18→20:22)
[2022-08-02] MEDS: DOXYCYCLINE INJECTION 100 MG in NS (IVPB) 100 ML IV SCH ×2 (08:18→21:32)
[2022-08-02] MEDS ORDERED: LEVO75TA6 PO (11:02)
[2022-08-02] MEDS ORDERED: LORA10TA7 PO (11:02)
[2022-08-02] MEDS ORDERED: NEBI5TAB11 PO (11:02)
[2022-08-02] MEDS ORDERED: LEVA1.2543 NEB (11:02)
[2022-08-02] MEDS ORDERED: FLUT1BLS9 INH (11:02)
[2022-08-02] MEDS ORDERED: POTA10CA44 PO ×2 (11:02)
[2022-08-02] MEDS ORDERED: MONT-40 PO (11:02)
[2022-08-02] MEDS ORDERED: FUROSEMIDE 40 MG (LASIX) TAB PO SCH (11:15)
[2022-08-02] MEDS ORDERED: PRD20T PO (11:22)
[2022-08-02] MEDS ORDERED: CEFD300C3 PO (11:22)
[2022-08-02] MEDS ORDERED: [UNRECOGNIZED DRUG - CODE] MC (11:22)
[2022-08-02] MEDS ORDERED: INSU100I29 SQ (11:22)
[2022-08-02] MEDS ORDERED: INSU100V3 SQ (11:22)
[2022-08-02] MEDS ORDERED: DOXY100C5 PO (11:22)
[2022-08-02] MEDS: inSUlin (REGULAR) HUMAN 1 UNIT/0.01 ML (CHARGE PER UNIT) SC PRN ×3 (12:01→21:32)
--- NOTE | 2022-08-02 13:01 | History & Physical ---
LYNSEY MARTINEZ 08/02/22 1301: History of Present Illness History of Present Illness Reason for visit/HPI Josue Lopez is a 66 yo F who was directly admitted to [facility] on 08/01/[address] Cross due to increasing respiratory distress. She reports that for the past week she has been increasingly wheezing. States it was like there was a "rattle" in her chest. Denies chest pain, tightness, or squeezing. She would take deep breaths followed by intense coughing. Notes she slept all day Friday and felt horrible on Friday. She had been trying Xopenex breathing treat ments at home with no improvement. She booked an office visit with Dr. Cross yesterday afternoon and was found to have lung sounds with bilateral wheezing throughout. Patient states she has been known to "go from 0 to 100%" with her respiratory status. So decision was made to admit to the hospital. She does not wear oxygen at home. This morning she states she is feeling much better. Alert, oriented, and in no acute distress. Not wearing oxygen with SAO2 at 97%. Reports coughing and wheezing less. She has been receiving Xopenex, Solumedrol, and Budesonide. CXR noted probable right upper pneumonia for which she has started Cefepime and Doxycycline. EKG showed sinus rhythm. Josue has not yet received and incentive spirometer. She is agreeable to remaining in the hospital for her abx but is insistent on discharge tomorrow so she may attend a birthday republican. Date of Admission Aug 01, 2022 at 16:49 Date Seen by a Provider: Aug 02, 2022 Time Seen by a Provider: 09:23 I consulted on this patient on 08/02/22 09:23 Attending Physician Judi Cross DO Admitting Physician Admitting Physician: Judi Cross DO Attending Physician: Judi Cross DO Consult Allergies and Home Medications Allergies Coded Allergies: codeine (Verified Allergy, Intermediate, N/V, "GOT THE SHAKES", 12/10/18) sulfamethoxazole (Verified Allergy, Mild, HIVES, 12/10/18) trimethoprim (Verified Allergy, Mild, HIVES, 12/10/18) Patient Home Medication List Home Medication List Reviewed: Yes Aspirin (Aspirin) 81 Mg Tab.chew, 81 MG PO DAILY, (Reported) Entered as Reported by: DREW LITTLE on 01/23/18 1517 Last Action: Continued Cefdinir (Cefdinir) 300 Mg Capsule, 300 MG PO BID Prescribed by: JUDI CROSS on 08/02/221121 Doxycycline Hyclate (Doxycycline Hyclate) 100 Mg Capsule, 100 MG PO BID Prescribed by: JUDI CROSS on 08/02/22 112 Fluticasone Propion/Salmeterol (Wixela 250-50 Inhub) 250 Mcg-50 Mcg/Dose Blst.w.dev, 1 PUFF INH BID, (Reported) Entered as Reported by: IRVIN BRITO on 08/02/22 110 Last Action: Converted Furosemide (Furosemide) 40 Mg Tablet, 40 MG PO MO,WE,FR, (Reported) Entered as Reported by: DREW LITTLE on 06/10/18 154 Last Action: Continued Hydralazine HCl (Hydralazine HCl) 25 Mg Tablet, 25 MG PO 0530,1330,2130, (Reported) Entered as Reported by: DREW LITTLE on 06/10/18 154 Last Action: Continued Insulin Aspart (Novolog Flexpen) 100 Unit/Ml (3 Ml) Solution, UNITS SQ AC, (Reported) Entered as Reported by: PILAR KENYON on 05/26/17 1701 Last Action: Held Insulin Detemir (Levemir Flextouch) 100 Unit/Ml (3 Ml) Insuln.pen, 30 UNITS SQ BID Prescribed by: JUDI CROSS on 08/02/221121 Insulin Regular, Human (Humulin R) 100 Unit/Ml Soln, 20 UNITS SQ ACHS PRN for HYPERGLYCEMIA Prescribed by: JUDI CROSS on 08/02/22 112 Irbesartan (Irbesartan) 300 Mg Tablet, 300 MG PO DAILY, (Reported) Entered as Reported by: DREW LITTLE on 06/10/18 154 Last Action: Converted Levalbuterol HCl (Levalbuterol HCl) 1.25 Mg/3 Ml Vial.neb, 3 ML NEB Q8H PRN for SHORTNESS OF BREATH, (Reported) Entered as Reported by: IRVIN BRITO on 08/02/22 110 Last Action: Held Levothyroxine Sodium (Levothyroxine Sodium) 75 Mcg Tablet, 75 MCG PO DAILY, (Reported) Entered as Reported by: IRVIN BRITO on 08/02/221101 Last Action: Continued Loratadine (Loratadine) 10 Mg Tablet, 10 MG PO HS, (Reported) Entered as Reported by: IRVIN BRITO on 08/02/221101 Last Action: Continued Montelukast Sodium (Montelukast Sodium) 10 Mg Tablet, 10 MG PO DAILY, (Reported) Entered as Reported by: IRVIN BRITO on 08/02/221101 Last Action: Continued Nebivolol HCl (Nebivolol HCl) 5 Mg Tablet, 5 MG PO DAILY, (Reported) Entered as Reported by: IRVIN BRITO on 08/02/221101 Last Action: Converted Potassium Chloride (Potassium Chloride) 10 Meq Capsule.er, 10 MEQ PO OCONNELL,TU,TH,SA, (Reported) Entered as Reported by: IRVIN BRITO on 08/02/221101 Last Action: Converted Potassium Chloride (Potassium Chloride) 10 Meq Capsule.er, 20 MEQ PO BID MO,WE,FR, (Reported) Entered as Reported by: IRVIN BRITO on 08/02/221101 Last Action: Converted Prednisone (Prednisone) 20 Mg Tab, 20 MG PO DAILY Prescribed by: JUDI CROSS on 08/02/221121 Syring W-Ndl,Disp,Insul,0.5 ml (Advocate Syringes) 29 Gauge X 1/2" Disp.syrin, EACH ACHS, (DME) Prescribed by: JUDI CROSS on 08/02/221121 Discontinued Medications Fluticasone Propionate (Fluticasone Propionate) 16 Gm [place].susp, 1 SPRAY NS DAILY, (Reported) Discontinued Reason: Duplicate Order Entered as Reported by: DREW LITTLE on 06/10/18 1635 Last Action: Discontinued Fluticasone/Salmeterol (Advair 250-50 Diskus) 1 Each Blst.w.dev, 1 PUFF IH BID, (Reported) Discontinued Reason: Duplicate Order Entered as Reported by: DREW LITTLE on 01/14/18 0902 Last Action: Discontinued Levalbuterol HCl (Levalbuterol Concentrate) 1.25 Mg/0.5 Ml Vial.neb, 1.25 MG NEB Q4H PRN for CONGESTION, (Reported) Discontinued Reason: Duplicate Order Entered as Reported by: DREW LITTLE on 06/10/18 1545 Last Action: Discontinued Levothyroxine Sodium (Synthroid) 75 Mcg Tablet, 75 MCG PO 0430, (Reported) Discontinued Reason: Duplicate Order Entered as Reported by: PILAR KENYON on 05/26/17 1631 Last Action: Discontinued Montelukast Sodium (Singulair) 10 Mg Tablet, 10 MG PO HS, (Reported) Discontinued Reason: Duplicate Order Entered as Reported by: DREW LITTLE on 06/10/18 1545 Last Action: Discontinued Nebivolol HCl (Bystolic) 5 Mg Tablet, 5 MG PO DAILY, (Reported) Discontinued Reason: Duplicate Order Entered as Reported by: DREW LITTLE on 01/23/18 1521 Last Action: Discontinued Potassium Chloride (Potassium Chloride) 10 Meq Tablet.er, 10 MEQ PO BID, (Reported) Discontinued Reason: Duplicate Order Entered as Reported by: GREGOR CORRIGAN on 12/10/18 1328 Last Action: Discontinued Pravastatin Sodium (Pravastatin Sodium) 10 Mg Tablet, 5 MG PO MoWeFr, (Reported) Discontinued Reason: Duplicate Order Entered as Reported by: PILAR KENYON on 05/26/17 1701 Last Action: Discontinued Past Csofxzy-Nmxfxd-Nvkdxh Hx Patient Social History Tobacco Use?: No Smoking Status: Never a Smoker Use of E-Cig and/or Vaping dev: No Substance use?: No Alcohol Use?: No Pt feels they are or have been: No Immunizations Up To Date Date of Influenza Vaccine: Mar 26, 2018 Tetanus Booster (TDap): Unknown Hepatitis A: No Hepatitis B: No PED Vaccines UTD: No Date of Pneumonia Vaccine: Mar 26, 2018 Seasonal Allergies Seasonal Allergies: Yes Current Status status: No status: No Communicates: Verbally Primary Language: Welsh Preferred Spoken Language: Welsh Is interpretation needed?: No Implanted or Applied Medical D: None Past Medical History Surgeries: Hysterectomy Asthma, Pneumonia, Chronic Bronchitis, Sleep Apnea Currently Using CPAP: Yes Currently Using BIPAP: No Chronic Edema/Swelling, High Cholesterol, Hypertension Neuropathy Sexually Transmitted Disease: No HIV/AIDS: No Bladder Infection Diabetes, Insulin dep, Hypothyroidsim Loss of Vision: Denies Hearing Impairment: Denies Did You Recieve Any Treatments: No Depression Blood Disorders: No Adverse Reaction/Blood Tranf: No (N/A) Family Medical History Diabetes mellitus 19 MOTHER, , Age:60 FH: breast cancer 19 MOTHER, , Age:60 (mets to liver) Diabetes Review of Systems Constitutional: No diaphoresis, No weakness EENTM: No blurred vision Respiratory: cough, short of breath, wheezing Cardiovascular: No chest pain, No palpitations Gastrointestinal: No abdominal pain, No constipation, No diarrhea, No nausea, No vomiting Genitourinary: No dysuria; frequency; No hematuria Psychiatric/Neurological: Denies Headache Physical Exam Vital Signs Vital Signs - First Documented 08/01/22 08/01/22 08/01/22 17:04 18:13 21:10 Temp 36.3 Pulse 77 Resp 24 B/P (MAP) 158/80 (106) Pulse Ox 92 O2 Delivery Room Air O2 Flow Rate 0.00 FiO2 21 Capillary Refill : Height, Weight, BMI Height: 5'7.00" Weight: 215lbs. 8.0oz. 97.497251av; 33.45 BMI Method:Stated General Appearance: No Apparent Distress, WD/WN Eyes: Bilateral Eye PERRL, Bilateral Eye EOMI HEENT: PERRL/EOMI; No Scleral Icterus (L), No Scleral Icterus (R) Neck: Full Range of Motion, Non Tender, Supple Respiratory: Chest Non Tender, No Accessory Muscle Use, No Respiratory Distress, Wheezing (expiratory) Cardiovascular: Regular Rate, Rhythm, No Murmur, Normal Peripheral Pulses Gastrointestinal: Normal Bowel Sounds, Non Tender, Soft Rectal: Deferred Extremity: No Calf Tenderness, No Pedal Edema Neurologic/Psychiatric: Alert, Oriented x3 Skin: Normal Color, Warm/Dry Comments NAME: JOSUE LOPEZ [facility] REC#: [id number] PT STATUS: ADM IN : 1955 PHYSICIAN: JUDI CROSS DO ADMIT DATE: 08/01/22/[facility] Signed Date of Exam:08/01/22 CHEST 1 VIEW, AP/PA ONLY Indication: Cough, fever. Compared: 07/20/2018 Findings: There is new suprahilar right upper lobe lung opacity given the history suspect for developing pneumonia. The left lung clear. Heart size upper limits but stable. No effusion. Impression: Probable right upper lung pneumonia but radiographic followup within one to two weeks' time recommended. Dictated by: Dictated on workstation # [id number] Dict: 08/01/221732 Trans: 08/01/221748 CV [id number] Interpreted by: CONRADO CHEN Electronically signed by: CONRADO CHEN 08/01/221748 Assessment/Plan Assessment and Plan Acute Respiratory Distress with Hypoxemia -ABG pO2 = 61 -continue steroid breathing treatments -pt breathing well on room air -transfer to 4th floor Pneumonia -continue Cefepime and Doxycycline -encourage incentive spirometer use hx of Status Asthmaticus -monitor for respiratory distress -provide supplemental oxygen if necessary Consider for discharge tomorrow Admission Diagnosis Admission Status: Inpatient Order (span 2 midnights) Reason for Inpatient Admission: Acute Respiratory Distress with Hypoxia, PNA JUDI CROSS DO 08/03/22 0742: Allergies and Home Medications Allergies Coded Allergies: codeine (Verified Allergy, Intermediate, N/V, "GOT THE SHAKES", 12/10/18) sulfamethoxazole (Verified Allergy, Mild, HIVES, 12/10/18) trimethoprim (Verified Allergy, Mild, HIVES, 12/10/18) Patient Home Medication List Aspirin (Aspirin) 81 Mg Tab.chew, 81 MG PO DAILY, (Reported) Entered as Reported by: DREW LITTLE on 01/23/18 1517 Last Action: Continued Cefdinir (Cefdinir) 300 Mg Capsule, 300 MG PO BID Prescribed by: JUDI CROSS on 08/02/22 1122 Doxycycline Hyclate (Doxycycline Hyclate) 100 Mg Capsule, 100 MG PO BID Prescribed by: JUDI CROSS on 08/02/22 1122 Fluticasone Propion/Salmeterol (Wixela 250-50 Inhub) 250 Mcg-50 Mcg/Dose Blst.w.dev, 1 PUFF INH BID, (Reported) Entered as Reported by: IRVIN BRITO on 08/02/22 1102 Last Action: Converted Furosemide (Furosemide) 40 Mg Tablet, 40 MG PO MO,WE,FR, (Reported) Entered as Reported by: DREW LITTLE on 06/10/18 1545 Last Action: Continued Hydralazine HCl (Hydralazine HCl) 25 Mg Tablet, 25 MG PO 0530,1330,2130, (Reported) Entered as Reported by: DREW LITTLE on 06/10/18 1545 Last Action: Continued Insulin Aspart (Novolog Flexpen) 100 Unit/Ml (3 Ml) Solution, UNITS SQ AC, (Reported) Entered as Reported by: PILAR KENYON on 05/26/17 1701 Last Action: Held Insulin Detemir (Levemir Flextouch) 100 Unit/Ml (3 Ml) Insuln.pen, 30 UNITS SQ BID Prescribed by: JUDI CROSS on 08/02/221121 Insulin Regular, Human (Humulin R) 100 Unit/Ml Soln, 20 UNITS SQ ACHS PRN for H YPERGLYCEMIA Prescribed by: JUDI CROSS on 08/02/221121 Irbesartan (Irbesartan) 300 Mg Tablet, 300 MG PO DAILY, (Reported) Entered as Reported by: DREW LITTLE on 06/10/181544 Last Action: Converted Levalbuterol HCl (Levalbuterol HCl) 1.25 Mg/3 Ml Vial.neb, 3 ML NEB Q8H PRN for SHORTNESS OF BREATH, (Reported) Entered as Reported by: IRVIN BRITO on 08/02/221101 Last Action: Held Levothyroxine Sodium (Levothyroxine Sodium) 75 Mcg Tablet, 75 MCG PO DAILY, (Reported) Entered as Reported by: IRVIN BRITO on 08/02/221101 Last Action: Continued Loratadine (Loratadine) 10 Mg Tablet, 10 MG PO HS, (Reported) Entered as Reported by: IRVIN BRITO on 08/02/221101 Last Action: Continued Montelukast Sodium (Montelukast Sodium) 10 Mg Tablet, 10 MG PO DAILY, (Reported) Entered as Reported by: IRVIN BRITO on 08/02/221101 Last Action: Continued Nebivolol HCl (Nebivolol HCl) 5 Mg Tablet, 5 MG PO DAILY, (Reported) Entered as Reported by: IRVIN BRITO on 08/02/221101 Last Action: Converted Potassium Chloride (Potassium Chloride) 10 Meq Capsule.er, 10 MEQ PO OCONNELL,TU,TH,SA, (Reported) Entered as Reported by: IRVIN BRITO on 08/02/221101 Last Action: Converted Potassium Chloride (Potassium Chloride) 10 Meq Capsule.er, 20 MEQ PO BID MO,WE,FR, (Reported) Entered as Reported by: IRVIN BRITO on 08/02/22 1102 Last Action: Converted Prednisone (Prednisone) 20 Mg Tab, 20 MG PO DAILY Prescribed by: JUDI CROSS on 08/02/22 1122 Syring W-Ndl,Disp,Insul,0.5 ml (Advocate Syringes) 29 Gauge X 1/2" Disp.syrin, EACH ACHS, (DME) Prescribed by: JUDI CROSS on 08/02/22 1122 Discontinued Medications Fluticasone Propionate (Fluticasone Propionate) 16 Gm [place].susp, 1 SPRAY NS DAILY, (Reported) Discontinued Reason: Duplicate Order Entered as Reported by: DREW LITTLE on 06/10/18 154 Last Action: Discontinued Fluticasone/Salmeterol (Advair 250-50 Diskus) 1 Each Blst.w.dev, 1 PUFF IH BID, (Reported) Discontinued Reason: Duplicate Order Entered as Reported by: DREW LITTLE on 01/14/18 0902 Last Action: Discontinued Levalbuterol HCl (Levalbuterol Concentrate) 1.25 Mg/0.5 Ml Vial.neb, 1.25 MG NEB Q4H PRN for CONGESTION, (Reported) Discontinued Reason: Duplicate Order Entered as Reported by: DREW LITTLE on 06/10/18 154 Last Action: Discontinued Levothyroxine Sodium (Synthroid) 75 Mcg Tablet, 75 MCG PO 0430, (Reported) Discontinued Reason: Duplicate Order Entered as Reported by: PILAR KENYON on 05/26/17 1631 Last Action: Discontinued Montelukast Sodium (Singulair) 10 Mg Tablet, 10 MG PO HS, (Reported) Discontinued Reason: Duplicate Order Entered as Reported by: DREW LITTLE on 06/10/18 1545 Last Action: Discontinued Nebivolol HCl (Bystolic) 5 Mg Tablet, 5 MG PO DAILY, (Reported) Discontinued Reason: Duplicate Order Entered as Reported by: DREW LITTLE on 01/23/18 1521 Last Action: Discontinued Potassium Chloride (Potassium Chloride) 10 Meq Tablet.er, 10 MEQ PO BID, (Reported) Discontinued Reason: Duplicate Order Entered as Reported by: GREGOR CORRIGAN on 12/10/18 1328 Last Action: Discontinued Pravastatin Sodium (Pravastatin Sodium) 10 Mg Tablet, 5 MG PO MoWeFr, (Reported) Discontinued Reason: Duplicate Order Entered as Reported by: PILAR KENYON on 05/26/17 1701 Last Action: Discontinued Past Zplpgnd-Tfhfpx-Jbqyfk Hx Family Medical History Diabetes mellitus 19 MOTHER, , Age:60 FH: breast cancer 19 MOTHER, , Age:60 (mets to liver) Assessment/Plan Assessment and Plan Problems: (1) Acute respiratory failure with hypoxia (2) Status asthmaticus (3) Pneumonia Status: Acute Admission Diagnosis Admission Status: Inpatient Order (span 2 midnights) Reason for Inpatient Admission: hypoxic resp failure Supervisory-Addendum Brief Verification & Attestation Participated in pt care: history, MDM, physical Personally performed: exam, history, MDM, supervision of care Care discussed with: Medical Student Procedures: n/a Results interpretation: Verified all documentation Verification and Attestation of Medical Student E/M Service A medical student performed and documented this service in my presence. I reviewed and verified all information documented by the medical student and made modifications to such information, when appropriate. I personally performed the physical exam and medical decision making. Judi Cross, Aug 03, 2022,07:41 LYNSEY MARTINEZ Aug 02, 2022 13:01 JUDI CROSS DO Aug 03, 2022 07:42
[2022-08-02] MEDS: hydrALAZINE (APRESOLINE) 25 MG TAB PO SCH ×2 (13:49→21:37)
[2022-08-02] MEDS: ENOXAPARIN 40 MG/0.4 ML (LOVENOX) SYR SC SCH (18:01)
[2022-08-02] MEDS ORDERED: KCL 20 MEQ TAB (K-DUR) PO SCH (19:00)
[2022-08-02] MEDS: RT--FLUTICASONE/SALMETEROL 113-14 (AIRDUO RespiCLICK) IH SCH (20:53)
[2022-08-02] MEDS ORDERED: MONTELUKAST 10 MG (SINGULAIR) TAB PO SCH (21:00)
[2022-08-02] MEDS ORDERED: LORATADINE (CLARITIN) 10 MG TAB PO SCH (21:00)
[2022-08-03 04:27] VITALS: BP 166/79
[2022-08-03] MEDS: methylPREDNISolone 40 MG/ML (Solu-MEDROL) VIAL IV SCH (05:17)
[2022-08-03] MEDS: cloNIDine 0.1 MG (CATAPRES) TAB PO PRN (05:17)
[2022-08-03] MEDS: hydrALAZINE (APRESOLINE) 25 MG TAB PO SCH (05:18)
[2022-08-03] MEDS: CEFEPIME INJECTION 1,000 MG in NS (IVPB) 50 ML IV SCH (05:19)
[2022-08-03] MEDS: inSUlin ASPART (NovoLOG) 1 UNIT/0.01 ML (CHARGE PER UNIT) SC SCH (05:26)
[2022-08-03 06:26] LABS: BASOPHILS % (AUTO) 0 % (0-10); EOSINOPHILS % (AUTO) 0 % (0-10); HEMATOCRIT 36 % (35-52); LYMPHOCYTES # (AUTO) 1.1 10^3/uL (1.0-4.0); LYMPHOCYTES % (AUTO) 14 % (12-44); MEAN CORPUSCULAR HEMOGLOBIN 27 pg (25-34); MEAN CORPUSCULAR HGB CONC 34 g/dL (32-36); MEAN CORPUSCULAR VOLUME 81 fL (80-99); MONOCYTES # (AUTO) 0.2 10^3/uL (0.0-1.0); MONOCYTES % (AUTO) 2 % (0-12); NEUTROPHILS # (AUTO) 6.7 10^3/uL (1.8-7.8); NEUTROPHILS % (AUTO) 83 % (42-75); PLATELET COUNT 206 10^3/uL (130-400)
[2022-08-03] MEDS ORDERED: LEVOTHYROXINE 75 MCG (LEVOTHROID) TABLET PO SCH (06:30)
[2022-08-03 06:44] LABS: ALBUMIN 3.6 GM/DL (3.2-4.5); BILIRUBIN,TOTAL 0.4 MG/DL (0.1-1.0); CALCIUM 9.3 MG/DL (8.5-10.1); CREATININE SERUM 0.84 MG/DL (0.60-1.30); POTASSIUM 3.8 MMOL/L (3.6-5.0); TOTAL PROTEIN 6.2 GM/DL (6.4-8.2)
[2022-08-03] MEDS ORDERED: KCL 10 MEQ TAB (MICRO K) PO SCH (07:00)
[2022-08-03] MEDS: RT-LEVALBUTEROL (XOPENEX) 1.25 MG/3 ML NEB NON-FORMULARY INH SCH (07:25)
[2022-08-03] MEDS: RT-BUDESONIDE NEBS 0.5 MG/2ML (PULMICORT) AMP INH SCH (07:25)
[2022-08-03 07:29] VITALS: BP 138/81
[2022-08-03] MEDS: SENNOSIDES 8.6 MG (SENOKOT) TAB PO SCH (07:58)
[2022-08-03] MEDS: DOXYCYCLINE INJECTION 100 MG in NS (IVPB) 100 ML IV SCH (07:58)
[2022-08-03] MEDS: DOCUSATE SODIUM 100 MG (COLACE) CAP PO SCH (07:58)
[2022-08-03] MEDS ORDERED: ASPIRIN 81 MG CHEW (CHILDREN'S ASA) PO SCH (09:00)
[2022-08-03] MEDS ORDERED: LOSARTAN 100 MG (COZAAR) TABLET PO SCH (09:00)
--- NOTE | 2022-08-03 09:40 | Discharge Summary ---
Diagnosis/Chief Complaint Date of Admission Aug 01, 2022 at 16:49 Date of Discharge Discharge Date: Aug 03, 2022 Discharge Diagnosis Assessment: Acute hypoxic respiratory failure Status asthmaticus Pneumonia DM insulin dependent HTN PIPPA on CPAP HLP Plan: DC home Reason Hospital Visit Discharge Summary Discharge Physical Examination Allergies: Coded Allergies: codeine (Verified Allergy, Intermediate, N/V, "GOT THE SHAKES", 12/10/18) sulfamethoxazole (Verified Allergy, Mild, HIVES, 12/10/18) trimethoprim (Verified Allergy, Mild, HIVES, 12/10/18) Vitals & I&Os Vital Signs Date Time Temp Pulse Resp B/P (MAP) Pulse Ox O2 Delivery O2 Flow Rate FiO2 08/03/22 10:02 36.1 66 18 138/81 92 Room Air 2.00 08/01/22 22:25 21 General Appearance: Alert, Oriented X3, Cooperative Respiratory: Clear to Auscultation Cardiovascular: Normal S1 Hospital Course Was the Problem List Reviewed?: Yes Uncomplicated hospital course after she was admitted from clinic with presumed PNA with status asthmaticus with acute respiratory failure with PaO2 of 61. Patient was placed on sepsis protocol. IV abx maintained and IV abx initiated empirically. Overall she did well but elevated sugars noted and additional insulin initiated. She was deemed stable for DC. Labs (last 24 hrs) Laboratory Tests 08/01/22 17:39: Influenza Type A (RT-PCR) Not Detected, Influenza Type B (RT-PCR) Not Detected, SARS-CoV-2 RNA (RT-PCR) Not Detected 08/01/22 17:42: Blood Gas Puncture Site RIGHT RADIAL, Blood Gas Patient Temperature 36.4, Arterial Blood pH 7.41, Arterial Blood Partial Pressure CO2 36, Arterial Blood Partial Pressure O2 61L, Arterial Blood HCO3 23, Arterial Blood Total CO2 23.8, Arterial Blood Oxygen Saturation 95, Arterial Blood Base Excess -1.4, Mark Test NA, Blood Gas Ventilator Setting NO, Blood Gas Inspired Oxygen UNK 08/01/22 17:49: White Blood Count 4.3, Red Blood Count 4.34, Hemoglobin 12.0, Hematocrit 36, Mean Corpuscular Volume 83, Mean Corpuscular Hemoglobin 28, Mean Corpuscular Hemoglobin Concent 33, Red Cell Distribution Width 12.7, Platelet Count 171, Mean Platelet Volume 10.0, Immature Granulocyte % (Auto) 1, Neutrophils (%) (Auto) 56, Lymphocytes (%) (Auto) 28, Monocytes (%) (Auto) 10, Eosinophils (%) (Auto) 6, Basophils (%) (Auto) 1, Neutrophils # (Auto) 2.4, Lymphocytes # (Auto) 1.2, Monocytes # (Auto) 0.4, Eosinophils # (Auto) 0.2, Basophils # (Auto) 0.0, Immature Granulocyte # (Auto) 0.0, D-Dimer 0.69H, Sodium Level 143, Potassium Level 3.8, Chloride Level 111H, Carbon Dioxide Level 20L, Anion Gap 12, Blood Urea Nitrogen 15, Creatinine 0.79, Estimat Glomerular Filtration Rate 83, BUN/Creatinine Ratio 19, Glucose Level 109H, Lactic Acid Level 1.09, Calcium Level 9.0, Corrected Calcium 9.2, Total Bilirubin 0.5, Aspartate Amino Transf (AST/SGOT) 18, Alanine Aminotransferase (ALT/SGPT) 19, Alkaline Phosphatase 94, B-Type Natriuretic Peptide 30.7, Total Protein 6.3L, Albumin 3.7 08/01/22 20:31: Glucometer 208H 08/02/22 04:29: White Blood Count 4.3, Red Blood Count 4.56, Hemoglobin 12.4, Hematocrit 37, Mean Corpuscular Volume 81, Mean Corpuscular Hemoglobin 27, Mean Corpuscular Hemoglobin Concent 34, Red Cell Distribution Width 12.3, Platelet Count 176, Mean Platelet Volume 10.2, Immature Granulocyte % (Auto) 1, Neutrophils (%) (Auto) 85H, Lymphocytes (%) (Auto) 13, Monocytes (%) (Auto) 1, Eosinophils (%) (Auto) 0, Basophils (%) (Auto) 0, Neutrophils # (Auto) 3.6, Lymphocytes # (Auto) 0.5L, Monocytes # (Auto) 0.1, Eosinophils # (Auto) 0.0, Basophils # (Auto) 0.0, Immature Granulocyte # (Auto) 0.0, Neutrophils % (Manual) 86, Lymphocytes % (Manual) 7, Monocytes % (Manual) 1, Atypical Lymphocytes 5, Blood Morphology Comment NORMAL, Sodium Level 138, Potassium Level 4.2, Chloride Level 108H, Carbon Dioxide Level 17L, Anion Gap 13, Blood Urea Nitrogen 17, Creatinine 0.82, Estimat Glomerular Filtration Rate 80, BUN/Creatinine Ratio 21, Glucose Level 285H, Calcium Level 9.1, Corrected Calcium 9.3, Total Bilirubin 0.5, Aspartate Amino Transf (AST/SGOT) 17, Alanine Aminotransferase (ALT/SGPT) 20, Alkaline Phosphatase 102, Total Protein 6.5, Albumin 3.8 08/02/22 11:04: Glucometer 450*H 08/02/22 15:39: Glucometer 357H 08/02/22 20:03: Glucometer 362H 08/03/22 05:21: Glucometer 213H 08/03/22 06:05: White Blood Count 8.0, Red Blood Count 4.42, Hemoglobin 12.0, Hematocrit 36, Mean Corpuscular Volume 81, Mean Corpuscular Hemoglobin 27, Mean Corpuscular Hemoglobin Concent 34, Red Cell Distribution Width 12.4, Platelet Count 206, Mean Platelet Volume 10.0, Immature Granulocyte % (Auto) 1, Neutrophils (%) (Auto) 83H, Lymphocytes (%) (Auto) 14, Monocytes (%) (Auto) 2, Eosinophils (%) (Auto) 0, Basophils (%) (Auto) 0, Neutrophils # (Auto) 6.7, Lymphocytes # (Auto) 1.1, Monocytes # (Auto) 0.2, Eosinophils # (Auto) 0.0, Basophils # (Auto) 0.0, Immature Granulocyte # (Auto) 0.1, Sodium Level 140, Potassium Level 3.8, Chloride Level 109H, Carbon Dioxide Level 19L, Anion Gap 12, Blood Urea Nitrogen 23H, Creatinine 0.84, Estimat Glomerular Filtration Rate 78, BUN/Creatinine Ratio 27, Glucose Level 243H, Calcium Level 9.3, Corrected Calcium 9.6, Total Bilirubin 0.4, Aspartate Amino Transf (AST/SGOT) 13, Alanine Aminotransferase (ALT/SGPT) 17, Alkaline Phosphatase 100, Total Protein 6.2L, Albumin 3.6 Microbiology 08/01/22 Blood Culture - Preliminary, Resulted No growth Pending Labs Microbiology Date/Time Source Procedure Growth Status 08/01/22 17:55 Peripheral Lt Hand Blood Culture - Preliminary No growth Resulted 08/01/22 17:49 Peripheral Rt Hand Blood Culture - Preliminary No growth Resulted Laboratory Tests 08/01/22 17:39: Influenza Type A (RT-PCR) Not Detected, Influenza Type B (RT-PCR) Not Detected, SARS-CoV-2 RNA (RT-PCR) Not Detected 08/01/22 17:42: Blood Gas Puncture Site RIGHT RADIAL, Blood Gas Patient Temperature 36.4, Arterial Blood pH 7.41, Arterial Blood Partial Pressure CO2 36, Arterial Blood Partial Pressure O2 61, Arterial Blood HCO3 23, Arterial Blood Total CO2 23.8, Arterial Blood Oxygen Saturation 95, Arterial Blood Base Excess -1.4, Mark Test NA, Blood Gas Ventilator Setting NO, Blood Gas Inspired Oxygen UNK 08/01/22 17:49: White Blood Count 4.3, Red Blood Count 4.34, Hemoglobin 12.0, Hematocrit 36, Mean Corpuscular Volume 83, Mean Corpuscular Hemoglobin 28, Mean Corpuscular Hemoglobin Concent 33, Red Cell Distribution Width 12.7, Platelet Count 171, Mean Platelet Volume 10.0, Immature Granulocyte % (Auto) 1, Neutrophils (%) (Auto) 56, Lymphocytes (%) (Auto) 28, Monocytes (%) (Auto) 10, Eosinophils (%) (Auto) 6, Basophils (%) (Auto) 1, Neutrophils # (Auto) 2.4, Lymphocytes # (Auto) 1.2, Monocytes # (Auto) 0.4, Eosinophils # (Auto) 0.2, Basophils # (Auto) 0.0, Immature Granulocyte # (Auto) 0.0, D-Dimer 0.69, Sodium Level 143, Potassium Level 3.8, Chloride Level 111, Carbon Dioxide Level 20, Anion Gap 12, Blood Urea Nitrogen 15, Creatinine 0.79, Estimat Glomerular Filtration Rate 83, BUN/Creatinine Ratio 19, Glucose Level 109, Lactic Acid Level 1.09, Calcium Level 9.0, Corrected Calcium 9.2, Total Bilirubin 0.5, Aspartate Amino Transf (AST/SGOT) 18, Alanine Aminotransferase (ALT/SGPT) 19, Alkaline Phosphatase 94, B-Type Natriuretic Peptide 30.7, Total Protein 6.3, Albumin 3.7 08/01/22 20:31: Glucometer 208 08/02/22 04:29: White Blood Count 4.3, Red Blood Count 4.56, Hemoglobin 12.4, Hematocrit 37, Mean Corpuscular Volume 81, Mean Corpuscular Hemoglobin 27, Mean Corpuscular Hemoglobin Concent 34, Red Cell Distribution Width 12.3, Platelet Count 176, Mean Platelet Volume 10.2, Immature Granulocyte % (Auto) 1, Neutrophils (%) (Auto) 85, Lymphocytes (%) (Auto) 13, Monocytes (%) (Auto) 1, Eosinophils (%) (Auto) 0, Basophils (%) (Auto) 0, Neutrophils # (Auto) 3.6, Lymphocytes # (Auto) 0.5, Monocytes # (Auto) 0.1, Eosinophils # (Auto) 0.0, Basophils # (Auto) 0.0, Immature Granulocyte # (Auto) 0.0, Neutrophils % (Manual) 86, Lymphocytes % (Manual) 7, Monocytes % (Manual) 1, Atypical Lymphocytes 5, Blood Morphology Comment NORMAL, Sodium Level 138, Potassium Level 4.2, Chloride Level 108, Carbon Dioxide Level 17, Anion Gap 13, Blood Urea Nitrogen 17, Creatinine 0.82, Estimat Glomerular Filtration Rate 80, BUN/Creatinine Ratio 21, Glucose Level 285, Calcium Level 9.1, Corrected Calcium 9.3, Total Bilirubin 0.5, Aspartate Amino Transf (AST/SGOT) 17, Alanine Aminotransferase (ALT/SGPT) 20, Alkaline Phosphatase 102, Total Protein 6.5, Albumin 3.8 08/02/22 11:04: Glucometer 450 08/02/22 15:39: Glucometer 357 08/02/22 20:03: Glucometer 362 08/03/22 05:21: Glucometer 213 08/03/22 06:05: White Blood Count 8.0, Red Blood Count 4.42, Hemoglobin 12.0, Hematocrit 36, Mean Corpuscular Volume 81, Mean Corpuscular Hemoglobin 27, Mean Corpuscular H emoglobin Concent 34, Red Cell Distribution Width 12.4, Platelet Count 206, Mean Platelet Volume 10.0, Immature Granulocyte % (Auto) 1, Neutrophils (%) (Auto) 83, Lymphocytes (%) (Auto) 14, Monocytes (%) (Auto) 2, Eosinophils (%) (Auto) 0, Basophils (%) (Auto) 0, Neutrophils # (Auto) 6.7, Lymphocytes # (Auto) 1.1, Monocytes # (Auto) 0.2, Eosinophils # (Auto) 0.0, Basophils # (Auto) 0.0, Immature Granulocyte # (Auto) 0.1, Sodium Level 140, Potassium Level 3.8, Chloride Level 109, Carbon Dioxide Level 19, Anion Gap 12, Blood Urea Nitrogen 23, Creatinine 0.84, Estimat Glomerular Filtration Rate 78, BUN/Creatinine Ratio 27, Glucose Level 243, Calcium Level 9.3, Corrected Calcium 9.6, Total Bilirubin 0.4, Aspartate Amino Transf (AST/SGOT) 13, Alanine Aminotransferase (ALT/SGPT) 17, Alkaline Phosphatase 100, Total Protein 6.2, Albumin 3.6 Discharge Home Medications: Active Scripts Active Doxycycline Hyclate 100 Mg Capsule 100 Mg PO BID Cefdinir 300 Mg Capsule 300 Mg PO BID Prednisone 20 Mg Tab 20 Mg PO DAILY Take 3 tabs(60mg)daily,decrease by 1/2 tab(10mg)every other day. Advocate Syringes (Syring W-Ndl,Disp,Insul,0.5 ml) 29 Gauge X 1/2" Disp.syrin Each MC ACHS Humulin R (Insulin Regular, Human) 100 Unit/Ml Soln 20 Units SQ ACHS PRN give 20 units for sugar greater than 300 Levemir Flextouch (Insulin Detemir) 100 Unit/Ml (3 Ml) Insuln.pen 30 Units SQ BID 7 Days take 30 units twice daily until sugars decrease Reported Loratadine 10 Mg Tablet 10 Mg PO HS Nebivolol HCl 5 Mg Tablet 5 Mg PO DAILY Wixela 250-50 Inhub (Fluticasone Propion/Salmeterol) 250 Mcg-50 Mcg/Dose Blst.w.dev 1 Puff INH BID Potassium Chloride 10 Meq Capsule.er 20 Meq PO BID MO,WE,FR TAKES 2 (10MEQ) TABS Potassium Chloride 10 Meq Capsule.er 10 Meq PO OCONNELL,,,SA Montelukast Sodium 10 Mg Tablet 10 Mg PO DAILY Levothyroxine Sodium 75 Mcg Tablet 75 Mcg PO DAILY Levalbuterol HCl 1.25 Mg/3 Ml Vial.neb 3 Ml NEB Q8H PRN Furosemide 40 Mg Tablet 40 Mg PO MO,WE,FR Hydralazine HCl 25 Mg Tablet 25 Mg PO 0530,1330,2130 Irbesartan 300 Mg Tablet 300 Mg PO DAILY Aspirin 81 Mg Tab.chew 81 Mg PO DAILY Novolog Flexpen (Insulin Aspart) 100 Unit/Ml (3 Ml) Solution Units SQ AC USES SLIDING SCALE Instructions to patient/family Please see electronic discharge instructions given to patient. Diagnosis/Problems Diagnosis/Problems (1) Acute respiratory failure with hypoxia (2) Status asthmaticus (3) Pneumonia Status: Acute CATALINA CROSS DO Aug 03, 2022 09:40
[2022-08-03 10:02] VITALS: BP 138/81
== END 2022-08-03 10:15 | disposition home or self-care (01) | DRG 193 ==
LOC: CSD 16:49 → 4TH 08-02 13:53
PROVIDERS: ADMIT Internal Medicine; ATTEND Internal Medicine
DX: J18.9 Pneumonia, unspecified organism (principal); J96.01 Acute respiratory failure with hypoxia; J45.902 Unspecified asthma with status asthmaticus; G47.33 Obstructive sleep apnea (adult) (pediatric); E78.00 Pure hypercholesterolemia, unspecified; I10 Essential (primary) hypertension; G62.9 Polyneuropathy, unspecified; E11.9 Type 2 diabetes mellitus without complications; E03.9 Hypothyroidism, unspecified; F32.A Depression, unspecified; Z20.822 Contact with and (suspected) exposure to COVID-19; Z79.82 Long term (current) use of aspirin; Z79.4 Long term (current) use of insulin; Z79.52 Long term (current) use of systemic steroids; Z88.1 Allergy status to other antibiotic agents; Z88.5 Allergy status to narcotic agent; Z88.2 Allergy status to sulfonamides
CPT/HCPCS: 36415; 71045; 80053; 82805; 82947; 83605; 83880; 85007; 85025; 85027; 85379; 87040; 87636; 93005; 94640

== ENCOUNTER → 2022-12-03 | Outpatient (CLI) | payer BC ==
[~2022-12-03] MED LIST changes: +DOXY100C5 PO; +FLUT1BLS9 INH; -INSU100I29 SQ; +INSU100I30 SQ; +INSU100V3 SQ; +LEVO75TA6 PO; -LOSA100T57 PO; +LOSA100T58 PO; +MONT-47 PO; -MONT10TA21 PO; +NEBI5TAB11 PO; +POTA10CA44 PO; +[UNRECOGNIZED DRUG - CODE] MC
--- NOTE | 2022-12-03 10:46 | Diagnostic Imaging Report ---
INDICATION: 67-year-old asymptomatic postmenopausal female COMPARISON: 08/27/2010 FINDINGS: AP Spine L2-L4: [BMD (g/cm2): 0.976] [T-Score: -1.9] [Z-Score: -1.4] [BMD Previous: 1.015] [BMD % Change: -3.8*] LT Hip Neck: [BMD (g/cm2): 0.719] [T-Score: -2.3] [Z-Score: -1.5] LT Hip Total: [BMD (g/cm2):0.837] [T-Score:-1.4] [Z-Score: -0.9] [BMD Previous: 0.864] [BMD % Change: -3.1] RT Hip Neck: [BMD (g/cm2):0.739] [T-Score:-2.2] [Z-Score:-1.4] RT Hip Total: [BMD (g/cm2):0.879] [T-score:-1.4] [Z-Score:-0.9] [BMD Previous:0.939] [BMD % Change:-6.4*] *Indicates significant change from prior examination based on 95% confidence level. World Health Organization criteria for BMD interpretation classify patients as Normal (T-score at or above -1.0), Osteopenic (T-score between -1.0 and -2.5) or Osteoporotic (T-score at or below -2.5). LIMITATIONS AND MODIFICATION: None. FRACTURE RISK (FRAX SCORE): The ten year probability of (%): Major Osteoporotic Fracture: [11.4] Hip Fracture: [2.0] IMPRESSION: 1. Osteopenia (Low bone mass). 2. Bone mineral density has decreased by a statistically significant amount, as detailed above. 3. See below National Osteoporosis Foundation guidelines on when to potentially initiate pharmacologic therapy. Based on the National Osteoporosis Foundation Guidelines, pharmacologic treatment should be initiated in any of the following, unless clinical conditions suggest otherwise: * Any patient with prior fragility fracture of the hip or vertebrae. A spine fracture indicates 5X risk for subsequent spine fracture and 2X risk for subsequent hip fracture. * Osteoporosis (T-score <-2.5). * Postmenopausal women and men age 50 and older with low bone mass/osteopenia (T-score between -1.0 and -2.5) by DXA and 10-year major osteoporotic fracture greater than 20% or a 10-year probability of hip fracture greater than 3%. These fracture risks are supplied above in the FRAX score, if applicable. * Clinician judgement and/or patient preferences may indicate treatment for people with 10-year fracture probabilities above or below these levels. Dictated by: Dictated on workstation # [id number]
--- NOTE | 2022-12-03 15:42 | Diagnostic Imaging Report ---
INDICATION: Routine screening. COMPARISON: 09/05/2021 and 09/04/2020. TECHNIQUE: 2D and 3D bilateral screening mammography was performed with CAD. FINDINGS: Both breasts are heterogeneously dense, limiting the sensitivity of mammography. The parenchymal pattern is stable. No mass or malignant-appearing microcalcifications are seen. The axillae are unremarkable. IMPRESSION: No mammographic features suspicious for malignancy are identified. ACR BI-RADS Category 1: Negative. Result letter will be mailed to the patient. Note: At least 10% of breast cancer is not imaged by mammography. Dictated by: Dictated on workstation # [id number]
== END ==
LOC: RAD 08:00
PROVIDERS: ATTEND Internal Medicine
DX: Z12.31 Encounter for screening mammogram for malignant neoplasm of breast (principal); M85.80 Other specified disorders of bone density and structure, unspecified site; Z78.0 Asymptomatic menopausal state
CPT/HCPCS: 77063; 77067; 77080

== ENCOUNTER → 2023-04-16 | Outpatient (CLI) | payer BC ==
[~2023-04-16] MED LIST changes: +NEBI5TAB2 PO; -NEBI5TAB8 PO; -POTA10CA44 PO; +POTA10CA84 PO
== END ==
LOC: CARD 14:30
PROVIDERS: ATTEND Internal Medicine
DX: I51.7 Cardiomegaly (principal); I34.0 Nonrheumatic mitral (valve) insufficiency
CPT/HCPCS: 93306